=== PATIENT | male | born 1980 | race Caucasian/White ===

== ENCOUNTER 2018-08-31 14:49 | Emergency (ER) | payer SELFPAY ==
[~2018-08-31] VITALS: Ht 182.9 cm; Wt 95.3 kg
[2018-08-31] MEDS ORDERED: TETRACAINE 0.5% OPHTH SOLN 4 ML BTL (SINGLE DOSE ONLY) OU ONE (15:15)
[2018-08-31] MEDS ORDERED: FLUORESCEIN (FLUOR-I-STRIPS) 1 MG STRP OU ONE (15:15)
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
[2018-08-31] MEDS ORDERED: RX-TOBRAMYCIN 0.3% OPHTH (TOBREX) SOLN 5 ML BTL OP STA (15:40)
[2018-08-31] MEDS ORDERED: PRED5DRO24 OP (15:54)
[2018-08-31 16:00] VITALS: BP 165/95
== END 2018-08-31 16:00 | disposition home or self-care (01) ==
LOC: ER FS 14:51
DX: S05.01XA Injury of conjunctiva and corneal abrasion without foreign body, right eye, initial encounter (principal); F17.210 Nicotine dependence, cigarettes, uncomplicated; Z90.49 Acquired absence of other specified parts of digestive tract; X58.XXXA Exposure to other specified factors, initial encounter
CPT/HCPCS: 99283

== ENCOUNTER 2019-08-22 07:45 | Emergency (ER) | payer SELFPAY ==
[~2019-08-22] VITALS: Ht 182.8 cm; Wt 75.0 kg
[~2019-08-22 07:45] MED LIST: PRED5DRO24 OP
--- OUTSIDE RECORDS SUMMARY | 2019-08-22 07:52 | XMS REPORT | Continuity of Care Document ---
Author Organization Unknown Address Unknown Phone Unavailable Allergies Active Description Code Type Severity Reaction Onset Reported/Identified Relationship to Patient Clinical Status Yes No Known Drug Allergies [id number] Drug Allergy Unknown N/A 08/31/2018 Medications There is no data. Problems Date Dx Coded Attending Type Code Diagnosis Diagnosed By 08/31/2018 HENNA VILLAR MD Ot F17.210 NICOTINE DEPENDENCE, CIGARETTES, UNCOMPL 08/31/2018 HENNA VILLAR MD Ot H57. 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 49 ACQUIRED ABSENCE OF OTHER SPECIFIED PART 09/02/2018 HENNA VILLAR MD Ot F17.210 NICOTINE DEPENDENCE, CIGARETTES, UNCOMPL 09/02/2018 HENNA VILLAR MD Ot H57. 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 49 ACQUIRED ABSENCE OF OTHER SPECIFIED PART 07/18/2019 AVILA CALHOUN MD Ot E83. 42 HYPOMAGNESEMIA 07/18/2019 AVILA CALHOUN MD Ot E87. 1 HYPO-OSMOLALITY AND HYPONATREMIA 07/18/2019 AVILA CALHOUN MD Ot E87. 6 HYPOKALEMIA 07/18/2019 AVILA CALHOUN MD Ot F10.239 ALCOHOL DEPENDENCE WITH WITHDRAWAL, UNSP 07/18/2019 AVILA CALHOUN MD Ot F17.210 NICOTINE DEPENDENCE, CIGARETTES, UNCOMPL 07/18/2019 UNIQUE MD, AVILA M Ot G93. 41 METABOLIC ENCEPHALOPATHY 07/18/2019 AVILA CALHOUN MD M Ot K70. 10 ALCOHOLIC HEPATITIS WITHOUT ASCITES 07/18/2019 MOOK CALHOUN MDIN M Ot R00. 0 TACHYCARDIA, UNSPECIFIED 07/18/2019 MOOK CALHOUN MDIN M Ot R11. 2 NAUSEA WITH VOMITING, UNSPECIFIED 07/18/2019 AVILA CALHOUN MD M Ot R25. 1 TREMOR, UNSPECIFIED 07/19/2019 MOOK CALHOUN MDIN M Ot E83. 42 HYPOMAGNESEMIA 07/19/2019 MOOK CALHOUN MDIN M Ot E87. 1 HYPO-OSMOLALITY AND HYPONATREMIA 07/19/2019 AVILA CALHOUN MD M Ot E87. 6 HYPOKALEMIA 07/19/2019 AVILA CALHOUN MD M Ot F10.239 ALCOHOL DEPENDENCE WITH WITHDRAWAL, UNSP 07/19/2019 AVILA CALHOUN MD M Ot F17.210 NICOTINE DEPENDENCE, CIGARETTES, UNCOMPL 07/19/2019 AVILA CALHOUN MD M Ot G93. 41 METABOLIC ENCEPHALOPATHY 07/19/2019 AVILA CALHOUN MD M Ot K70. 10 ALCOHOLIC HEPATITIS WITHOUT ASCITES 07/19/2019 AVILA CALHOUN MD M Ot R00. 0 TACHYCARDIA, UNSPECIFIED 07/19/2019 AVILA CALHOUN MD M Ot R11. 2 NAUSEA WITH VOMITING, UNSPECIFIED 07/19/2019 AVILA CALHOUN MD M Ot R25. 1 TREMOR, UNSPECIFIED 07/20/2019 AVILA CALHOUN MD M Ot E83. 42 HYPOMAGNESEMIA 07/20/2019 AVILA CALHOUN MD M Ot E87. 1 HYPO-OSMOLALITY AND HYPONATREMIA 07/20/2019 UNIQUE SAWYER AVILA M Ot E87. 6 HYPOKALEMIA 07/20/2019 MOOK CALHOUN MDIN M Ot F10.239 ALCOHOL DEPENDENCE WITH WITHDRAWAL, UNSP 07/20/2019 AVILA CALHOUN MD M Ot F17.210 NICOTINE DEPENDENCE, CIGARETTES, UNCOMPL 07/20/2019 MOOK CALHOUN MDIN M Ot G93. 41 METABOLIC ENCEPHALOPATHY 07/20/2019 AVILA CALHOUN MD M Ot K70. 10 ALCOHOLIC HEPATITIS WITHOUT ASCITES 07/20/2019 AVILA CALHOUN MD M Ot R00. 0 TACHYCARDIA, UNSPECIFIED 07/20/2019 AVILA CALHOUN MD M Ot R11. 2 NAUSEA WITH VOMITING, UNSPECIFIED 07/20/2019 AVILA CALHOUN MD M Ot R25. 1 TREMOR, UNSPECIFIED 07/21/2019 AVILA CALHOUN MD M Ot E83. 42 HYPOMAGNESEMIA 07/21/2019 AVILA CALHOUN MD M Ot E87. 1 HYPO-OSMOLALITY AND HYPONATREMIA 07/21/2019 AVILA CALHOUN MD M Ot E87. 6 HYPOKALEMIA 07/21/2019 AVILA CALHOUN MD M Ot F10.239 ALCOHOL DEPENDENCE WITH WITHDRAWAL, UNSP 07/21/2019 AVILA CALHOUN MD M Ot F17.210 NICOTINE DEPENDENCE, CIGARETTES, UNCOMPL 07/21/2019 AVILA CALHOUN MD M Ot G93. 41 METABOLIC ENCEPHALOPATHY 07/21/2019 AVILA CALHOUN MD M Ot K70. 10 ALCOHOLIC HEPATITIS WITHOUT ASCITES 07/21/2019 AVILA CALHOUN MD M Ot R00. 0 TACHYCARDIA, UNSPECIFIED 07/21/2019 AVILA CALHOUN MD M Ot R11. 2 NAUSEA WITH VOMITING, UNSPECIFIED 07/21/2019 AVILA CALHOUN MD M Ot R25. 1 TREMOR, UNSPECIFIED 07/22/2019 AVILA CALHOUN MD M Ot E83. 42 HYPOMAGNESEMIA 07/22/2019 AVILA CALHOUN MD M Ot E87. 1 HYPO-OSMOLALITY AND HYPONATREMIA 07/22/2019 AVILA CALHOUN MD M Ot E87. 6 HYPOKALEMIA 07/22/2019 AVILA CALHOUN MD M Ot F10.239 ALCOHOL DEPENDENCE WITH WITHDRAWAL, UNSP 07/22/2019 AVILA CALHOUN MD M Ot F17.210 NICOTINE DEPENDENCE, CIGARETTES, UNCOMPL 07/22/2019 AVILA CALHOUN MD M Ot G93. 41 METABOLIC ENCEPHALOPATHY 07/22/2019 AVILA CALHOUN MD M Ot K70. 10 ALCOHOLIC HEPATITIS WITHOUT ASCITES 07/22/2019 AVILA CALHOUN MD M Ot R00. 0 TACHYCARDIA, UNSPECIFIED 07/22/2019 AVILA CALHOUN MD M Ot R11. 2 NAUSEA WITH VOMITING, UNSPECIFIED 07/22/2019 AVILA CALHOUN MD M Ot R25. 1 TREMOR, UNSPECIFIED 07/22/2019 AVILA CALHOUN MD M Ot E83. 42 HYPOMAGNESEMIA 07/22/2019 AVILA CALHOUN MD M Ot E87. 1 HYPO-OSMOLALITY AND HYPONATREMIA 07/22/2019 AVILA CALHOUN MD M Ot E87. 6 HYPOKALEMIA 07/22/2019 AVILA CALHOUN MD M Ot F10.239 ALCOHOL DEPENDENCE WITH WITHDRAWAL, UNSP 07/22/2019 AVILA CALHOUN MD M Ot F17.210 NICOTINE DEPENDENCE, CIGARETTES, UNCOMPL 07/22/2019 AVILA CALHOUN MD M Ot G93. 41 METABOLIC ENCEPHALOPATHY 07/22/2019 AVILA CALHOUN MD M Ot K70. 10 ALCOHOLIC HEPATITIS WITHOUT ASCITES 07/22/2019 AVILA CALHOUN MD M Ot R00. 0 TACHYCARDIA, UNSPECIFIED 07/22/2019 AVILA CALHOUN MD M Ot R11. 2 NAUSEA WITH VOMITING, UNSPECIFIED 07/22/2019 AVILA CALHOUN MD M Ot R25. 1 TREMOR, UNSPECIFIED 07/22/2019 AVILA CALHOUN MD M Ot E83. 42 HYPOMAGNESEMIA 07/22/2019 AVILA CALHOUN MD M Ot E87. 1 HYPO-OSMOLALITY AND HYPONATREMIA 07/22/2019 AVILA CALHOUN MD M Ot E87. 6 HYPOKALEMIA 07/22/2019 AVILA CALHOUN MD M Ot F10.239 ALCOHOL DEPENDENCE WITH WITHDRAWAL, UNSP 07/22/2019 AVILA CALHOUN MD M Ot F17.210 NICOTINE DEPENDENCE, CIGARETTES, UNCOMPL 07/22/2019 AVILA CALHOUN MD M Ot G93. 41 METABOLIC ENCEPHALOPATHY 07/22/2019 AVILA CALHOUN MD M Ot K70. 10 ALCOHOLIC HEPATITIS WITHOUT ASCITES 07/22/2019 AVILA CALHOUN MD M Ot R00. 0 TACHYCARDIA, UNSPECIFIED 07/22/2019 MOOK CALHOUN MDIN M Ot R11. 2 NAUSEA WITH VOMITING, UNSPECIFIED 07/22/2019 AVILA CALHOUN MD M Ot R25. 1 TREMOR, UNSPECIFIED 07/22/2019 AVILA CALHOUN MD M Ot E83. 42 HYPOMAGNESEMIA 07/22/2019 AVILA CALHOUN MD M Ot E87. 1 HYPO-OSMOLALITY AND HYPONATREMIA 07/22/2019 AVILA CALHOUN MD M Ot E87. 6 HYPOKALEMIA 07/22/2019 AVILA CALHOUN MD M Ot F10.239 ALCOHOL DEPENDENCE WITH WITHDRAWAL, UNSP 07/22/2019 AVILA CALHOUN MD Ot F17.210 NICOTINE DEPENDENCE, CIGARETTES, UNCOMPL 07/22/2019 AVILA CALHOUN MD Ot G93. 41 METABOLIC ENCEPHALOPATHY 07/22/2019 AVILA CALHOUN MD Ot K70. 10 ALCOHOLIC HEPATITIS WITHOUT ASCITES 07/22/2019 AVILA CALHOUN MD Ot R00. 0 TACHYCARDIA, UNSPECIFIED 07/22/2019 AVILA CALHOUN MD Ot R11. 2 NAUSEA WITH VOMITING, UNSPECIFIED 07/22/2019 AVILA CALHOUN MD Ot R25. 1 TREMOR, UNSPECIFIED 07/22/2019 AVILA CALHOUN MD Ot E83. 42 HYPOMAGNESEMIA 07/22/2019 AVILA CALHOUN MD Ot E87. 1 HYPO-OSMOLALITY AND HYPONATREMIA 07/22/2019 AVILA CALHOUN MD Ot E87. 6 HYPOKALEMIA 07/22/2019 AVILA CALHOUN MD Ot F10.239 ALCOHOL DEPENDENCE WITH WITHDRAWAL, UNSP 07/22/2019 AVILA CALHOUN MD Ot F10.251 ALCOHOL DEPEND W ALCOH-INDUCE PSYCHOTIC 07/22/2019 AVILA CALHOUN MD Ot F17.210 NICOTINE DEPENDENCE, CIGARETTES, UNCOMPL 07/22/2019 AVILA CALHOUN MD Ot G93. 41 METABOLIC ENCEPHALOPATHY 07/22/2019 AVILA CALHOUN MD Ot K70. 10 ALCOHOLIC HEPATITIS WITHOUT ASCITES 07/22/2019 AVILA CALHOUN MD Ot R00. 0 TACHYCARDIA, UNSPECIFIED 07/22/2019 AVILA CALHOUN MD Ot R11. 2 NAUSEA WITH VOMITING, UNSPECIFIED 07/22/2019 AVILA CALHOUN MD Ot R25. 1 TREMOR, UNSPECIFIED Procedures There is no data. Results Test Result Range Complete blood count (CBC) with automate d white blood cell (WBC) differential - 07/16/19 08:25 Blood leukocytes automated count (number/volume) 14.4 10*3/uL 4.3-11.0 Blood erythrocytes automated count (number/volume) 4.23 10*6/uL 4.35-5.85 Venous blood hemoglobin measurement (mass/volume) 14.8 g/dL 13.3-17.7 Blood hematocrit (volume fraction) 40 % 40-54 Automated erythrocyte mean corpuscular volume 94 [ foz_us] 80-99 Automated erythrocyte mean corpuscular h emoglobin (mass per erythrocyte) 35 pg 25-34 Automated erythrocyte mean corpuscular h emoglobin concentration measurement (mass/volume) 37 g/dL 32-36 Automated erythrocyte distribution width ratio 12. 2 % 10.0- 14.5 Automated blood platelet count (count/volume) 116 10*3/uL 130-400 Automated blood platelet mean volume measurement 10.9 [foz_us] 7.4-10.4 Automated blood neutrophils/100 leukocytes 80 % 42-75 Automated blood lymphocytes/100 leukocytes 4 % 12-44 Blood monocytes/100 leukocytes 15 % 0-12 Automated blood eosinophils/100 leukocytes 0 % 0-10 Automated blood basophils/100 leukocytes 0 % 0-10 Blood neutrophils automated count (number/volume) 11.6 10*3 1.8-7.8 Blood lymphocytes automated count (number/volume) 0.5 10*3 1.0-4.0 Blood monocytes automated count (number/volume) 2. 1 10*3 0.0-1.0 Automated eosinophil count 0.0 10*3/uL 0 .0-0.3 Automated blood basophil count (count/volume) 0.0 10*3/uL 0.0-0.1 Comprehensive metabolic panel - 07/16/19 08:25 Serum or plasma sodium measurement (moles/volume) 124 mmol/L 135-145 Serum or plasma potassium measurement (moles/volume) 2.9 mmol/L 3.6-5.0 Serum or plasma chloride measurement (moles/volume) 65 mmol/L 98-107 Carbon dioxide 33 mmol/L 21-32 Serum or plasma anion gap determination (moles/volume) 26 mmol/L 5-14 Serum or plasma urea nitrogen measurement (mass/volume ) 26 mg/dL 7-18 Serum or plasma creatinine measurement (mass/volume) 1.06 mg/dL 0.60-1.30 Serum or plasma urea nitrogen/creatinine mass ratio 25 NRG Serum or plasma creatinine measurement w ith calculation of estimated glomerular filtration rate > NRG Serum or plasma glucose measurement (mass/volume) 282 mg/dL 70-105 Serum or plasma calcium measurement (mass/volume) 9.6 mg/dL 8.5-10.1 Serum or plasma total bilirubin measurement (mass/volu me) 2.3 mg/dL 0.1-1.0 Serum or plasma alkaline phosphatase min surement (enzymatic activity/volume) 71 U/L 40-136 Serum or plasma aspartate aminotransfera se measurement (enzymatic activity/volume) 203 U/L 5-34 Serum or plasma alanine aminotransferase measurement (enzymatic activity/volume) 77 U/L 0-55 Serum or plasma protein measurement (mass/volume) 7.4 g/dL 6.4-8.2 Serum or plasma albumin measurement (mass/volume) 4.2 g/dL 3.2-4.5 CALCIUM CORRECTED 9.4 mg/dL 8.5-10.1 Serum or plasma ethanol measurement (mas s/volume) - 07/16/19 08:25 Serum or plasma ethanol measurement (mass/volume) 99 mg/dL <10 Complete urinalysis with reflex to cultu re - 07/16/19 09:09 Urine color determination DARK YELLOW N RG Urine clarity determination CLOUDY NR G Urine pH measurement by test strip 5.5 5-9 Specific gravity of urine by test strip >= 1.016-1.022 Urine protein assay by test strip, semi-quantitative 2+ NEGATIVE Urine glucose detection by automated test strip TR ANA NEGATIVE Erythrocytes detection in urine sediment by light micr oscopy 1+ NEGATIVE Urine ketones detection by automated test strip TR ANA NEGATIVE Urine nitrite detection by test strip POSITIVE NEGATIVE Urine total bilirubin detection by test strip 2+ NEGATIVE Urine urobilinogen measurement by automated test strip (mass/volume) 4.0 mg/dL < = 1.0 Urine leukocyte esterase detection by dipstick NEG ATIVE NEGATIVE Automated urine sediment erythrocyte cou nt by microscopy (number/high power field) [HPF] NRG Automated urine sediment leukocyte count by microscopy (number/high power field) [HPF] NRG Bacteria detection in urine sediment by light microsco py MODERATE NRG Squamous epithelial cells detection in u rine sediment by light microscopy NONE NRG Crystals detection in urine sediment by light microsco py NONE NRG Casts detection in urine sediment by light microscopy PRESENT NRG Mucus detection in urine sediment by light microscopy LARGE NRG Complete urinalysis with reflex to culture YES NRG Hyaline casts detection in urine sediment by light deven roscopy 10-25 NRG Urine drug screening test - 07/16/19 09: 09 Urine phencyclidine detection by screening method NEGATIVE NEGATIVE Urine benzodiazepines detection by screening method NEGATIVE NEGATIVE Urine cocaine detection NEGATIVE NEGATI VE Urine amphetamines detection by screening method N EGATIVE NEGATIVE Urine methamphetamine detection by screening method NEGATIVE NEGATIVE Urine cannabinoids detection by screening method P OSITIVE NEGATIVE Urine opiates detection by screening method NEGATI VE NEGATIVE Urine barbiturates detection NEGATIVE N EGATIVE Screening urine tricyclic antidepressants detection NEGATIVE NEGATIVE Urine methadone detection by screening method NEGA TIVE NEGATIVE Urine oxycodone detection NEGATIVE NEGA TIVE Urine propoxyphene detection NEGATIVE N EGATIVE Bacterial urine culture - 07/16/19 09:09 Bacterial urine culture NG NRG Methicillin resistant Staphylococcus aur eus (MRSA) screening culture - 07/16/19 13:29 Methicillin resistant Staphylococcus aureus (MRSA) scr eening culture NEG NRG Whole blood basic metabolic panel - 07/05 03/26 14:05 Serum or plasma sodium measurement (moles/volume) 130 mmol/L 135-145 Serum or plasma potassium measurement (moles/volume) 3.1 mmol/L 3.6-5.0 Serum or plasma chloride measurement (moles/volume) 78 mmol/L 98-107 Carbon dioxide 35 mmol/L 21-32 Serum or plasma anion gap determination (moles/volume) 17 mmol/L 5-14 Serum or plasma urea nitrogen measurement (mass/volume ) 23 mg/dL 7-18 Serum or plasma creatinine measurement (mass/volume) 0.85 mg/dL 0.60-1.30 Serum or plasma urea nitrogen/creatinine mass ratio 27 NRG Serum or plasma creatinine measurement w ith calculation of estimated glomerular filtration rate > NRG Serum or plasma glucose measurement (mass/volume) 106 mg/dL 70-105 Serum or plasma calcium measurement (mass/volume) 8.3 mg/dL 8.5-10.1 Magnesium - 07/16/19 14:05 Magnesium 0.8 mg/dL 1.6-2.4 Hemoglobin A1c measurement - 07/16/19 14 :05 Blood hemoglobin A1C measurement (mass/volume) 4.7 % 4.0-5.6 MEAN BLOOD GLUCOSE 88 % <=126 Capillary blood glucose measurement by g lucometer (mass/volume) - 07/16/19 15:25 Capillary blood glucose measurement by glucometer (mas s/volume) 154 mg/dL 70-110 Capillary blood glucose measurement by g lucometer (mass/volume) - 07/16/19 19:34 Capillary blood glucose measurement by glucometer (mas s/volume) 130 mg/dL 70-110 Whole blood basic metabolic panel - 07/05 03/26 19:39 Serum or plasma sodium measurement (moles/volume) 126 mmol/L 135-145 Serum or plasma potassium measurement (moles/volume) 3.2 mmol/L 3.6-5.0 Serum or plasma chloride measurement (moles/volume) 78 mmol/L 98-107 Carbon dioxide 34 mmol/L 21-32 Serum or plasma anion gap determination (moles/volume) 14 mmol/L 5-14 Serum or plasma urea nitrogen measurement (mass/volume ) 22 mg/dL 7-18 Serum or plasma creatinine measurement (mass/volume) 0.88 mg/dL 0.60-1.30 Serum or plasma urea nitrogen/creatinine mass ratio 25 NRG Serum or plasma creatinine measurement w ith calculation of estimated glomerular filtration rate > NRG Serum or plasma glucose measurement (mass/volume) 127 mg/dL 70-105 Serum or plasma calcium measurement (mass/volume) 8.1 mg/dL 8.5-10.1 Whole blood basic metabolic panel - 07/05 03/26 23:11 Serum or plasma sodium measurement (moles/volume) 127 mmol/L 135-145 Serum or plasma potassium measurement (moles/volume) 3.1 mmol/L 3.6-5.0 Serum or plasma chloride measurement (moles/volume) 80 mmol/L 98-107 Carbon dioxide 34 mmol/L 21-32 Serum or plasma anion gap determination (moles/volume) 13 mmol/L 5-14 Serum or plasma urea nitrogen measurement (mass/volume ) 19 mg/dL 7-18 Serum or plasma creatinine measurement (mass/volume) 0.80 mg/dL 0.60-1.30 Serum or plasma urea nitrogen/creatinine mass ratio 24 NRG Serum or plasma creatinine measurement w ith calculation of estimated glomerular filtration rate > NRG Serum or plasma glucose measurement (mass/volume) 109 mg/dL 70-105 Serum or plasma calcium measurement (mass/volume) 8.1 mg/dL 8.5-10.1 Magnesium - 07/16/19 23:11 Magnesium 2.9 mg/dL 1.6-2.4 Liver function panel (serum or plasma al k phos, alb, total and direct bili, total protein, ALT, AST) - 07/17/19 03:04 Serum or plasma total bilirubin measurement (mass/volu me) 2.7 mg/dL 0.1-1.0 Serum or plasma alkaline phosphatase min surement (enzymatic activity/volume) 49 U/L 40-136 Serum or plasma aspartate aminotransfera se measurement (enzymatic activity/volume) 137 U/L 5-34 Serum or plasma alanine aminotransferase measurement (enzymatic activity/volume) 52 U/L 0-55 Serum or plasma protein measurement (mass/volume) 6.4 g/dL 6.4-8.2 Serum or plasma albumin measurement (mass/volume) 3.3 g/dL 3.2-4.5 Bilirubin direct 1.6 mg/dL 0.0-0.3 Serum or plasma indirect bilirubin measurement (mass/v olume) 1.1 mg/dL NRG Whole blood basic metabolic panel - 07/05 04/26 03:04 Serum or plasma sodium measurement (moles/volume) 129 mmol/L 135-145 Serum or plasma potassium measurement (moles/volume) 3.4 mmol/L 3.6-5.0 Serum or plasma chloride measurement (moles/volume) 84 mmol/L 98-107 Carbon dioxide 35 mmol/L 21-32 Serum or plasma anion gap determination (moles/volume) 10 mmol/L 5-14 Serum or plasma urea nitrogen measurement (mass/volume ) 18 mg/dL 7-18 Serum or plasma creatinine measurement (mass/volume) 0.75 mg/dL 0.60-1.30 Serum or plasma urea nitrogen/creatinine mass ratio 24 NRG Serum or plasma creatinine measurement w ith calculation of estimated glomerular filtration rate > NRG Serum or plasma glucose measurement (mass/volume) 106 mg/dL 70-105 Serum or plasma calcium measurement (mass/volume) 8.1 mg/dL 8.5-10.1 Serum or plasma phosphate measurement (m ass/volume) - 07/17/19 03:04 Serum or plasma phosphate measurement (mass/volume) 2.8 mg/dL 2.3-4.7 Complete blood count (CBC) with automate d white blood cell (WBC) differential - 07/17/19 03:04 Blood leukocytes automated count (number/volume) 7.6 10*3/uL 4.3-11.0 Blood erythrocytes automated count (number/volume) 3.46 10*6/uL 4.35-5.85 Venous blood hemoglobin measurement (mass/volume) 11.9 g/dL 13.3-17.7 Blood hematocrit (volume fraction) 34 % 40-54 Automated erythrocyte mean corpuscular volume 97 [ foz_us] 80-99 Automated erythrocyte mean corpuscular h emoglobin (mass per erythrocyte) 34 pg 25-34 Automated erythrocyte mean corpuscular h emoglobin concentration measurement (mass/volume) 35 g/dL 32-36 Automated erythrocyte distribution width ratio 12. 4 % 10.0- 14.5 Automated blood platelet count (count/volume) 59 1 0*3/uL 130-400 Automated blood platelet mean volume measurement 10.8 [foz_us] 7.4-10.4 Automated blood neutrophils/100 leukocytes 65 % 42-75 Automated blood lymphocytes/100 leukocytes 22 % 12-44 Blood monocytes/100 leukocytes 13 % 0-12 Automated blood eosinophils/100 leukocytes 0 % 0-10 Automated blood basophils/100 leukocytes 0 % 0-10 Blood neutrophils automated count (number/volume) 4.9 10*3 1.8-7.8 Blood lymphocytes automated count (number/volume) 1.6 10*3 1.0-4.0 Blood monocytes automated count (number/volume) 1. 0 10*3 0.0-1.0 Automated eosinophil count 0.0 10*3/uL 0 .0-0.3 Automated blood basophil count (count/volume) 0.0 10*3/uL 0.0-0.1 Magnesium - 07/17/19 03:04 Magnesium 2.7 mg/dL 1.6-2.4 Capillary blood glucose measurement by g lucometer (mass/volume) - 07/17/19 11:24 Capillary blood glucose measurement by glucometer (mas s/volume) 120 mg/dL 70-110 Capillary blood glucose measurement by g lucometer (mass/volume) - 07/17/19 16:53 Capillary blood glucose measurement by glucometer (mas s/volume) 122 mg/dL 70-110 Arterial blood gas measurement - 0 18:01 Blood pCO2 40 mm[Hg] 35-45 Blood pO2 79 mm[Hg] 79-93 Arterial blood bicarbonate measurement (moles/volume) 30 mmol/L 23-27 Arterial blood base excess by calculation 6.0 mmol /L -2.5-2.5 Arterial blood oxygen saturation measurement 97 % 94-100 * Inhaled oxygen flow rate ROOM AIR NRG Arterial blood pH measurement with patient temperature correction 7.49 7.37-7.43 Arterial blood carbon dioxide, total measurement (mole s/volume) 30.9 mmol/L 21.0-31.0 Body site RT RAD NRG Assessment of wrist artery patency prior to arterial p uncture YES-POS NRG Setting of ventilation mode NO NR G Measurement of body temperature 36.4 NRG Complete blood count (CBC) with automate d white blood cell (WBC) differential - 07/18/19 03:15 Blood leukocytes automated count (number/volume) 7.5 10*3/uL 4.3-11.0 Blood erythrocytes automated count (number/volume) 3.58 10*6/uL 4.35-5.85 Venous blood hemoglobin measurement (mass/volume) 12.3 g/dL 13.3-17.7 Blood hematocrit (volume fraction) 35 % 40-54 Automated erythrocyte mean corpuscular volume 99 [ foz_us] 80-99 Automated erythrocyte mean corpuscular h emoglobin (mass per erythrocyte) 34 pg 25-34 Automated erythrocyte mean corpuscular h emoglobin concentration measurement (mass/volume) 35 g/dL 32-36 Automated erythrocyte distribution width ratio 12. 3 % 10.0- 14.5 Automated blood platelet count (count/volume) 65 1 0*3/uL 130-400 Automated blood platelet mean volume measurement 11.0 [foz_us] 7.4-10.4 Automated blood neutrophils/100 leukocytes 71 % 42-75 Automated blood lymphocytes/100 leukocytes 17 % 12-44 Blood monocytes/100 leukocytes 10 % 0-12 Automated blood eosinophils/100 leukocytes 1 % 0-10 Automated blood basophils/100 leukocytes 0 % 0-10 Blood neutrophils automated count (number/volume) 5.3 10*3 1.8-7.8 Blood lymphocytes automated count (number/volume) 1.3 10*3 1.0-4.0 Blood monocytes automated count (number/volume) 0. 8 10*3 0.0-1.0 Automated eosinophil count 0.1 10*3/uL 0 .0-0.3 Automated blood basophil count (count/volume) 0.0 10*3/uL 0.0-0.1 Whole blood basic metabolic panel - 07/05 05/24 03:15 Serum or plasma sodium measurement (moles/volume) 132 mmol/L 135-145 Serum or plasma potassium measurement (moles/volume) 3.6 mmol/L 3.6-5.0 Serum or plasma chloride measurement (moles/volume) 98 mmol/L 98-107 Carbon dioxide 25 mmol/L 21-32 Serum or plasma anion gap determination (moles/volume) 9 mmol/L 5-14 Serum or plasma urea nitrogen measurement (mass/volume ) 11 mg/dL 7-18 Serum or plasma creatinine measurement (mass/volume) 0.70 mg/dL 0.60-1.30 Serum or plasma urea nitrogen/creatinine mass ratio 16 NRG Serum or plasma creatinine measurement w ith calculation of estimated glomerular filtration rate > NRG Serum or plasma glucose measurement (mass/volume) 106 mg/dL 70-105 Serum or plasma calcium measurement (mass/volume) 8.2 mg/dL 8.5-10.1 Serum or plasma phosphate measurement (m ass/volume) - 07/18/19 03:15 Serum or plasma phosphate measurement (mass/volume) 1.9 mg/dL 2.3-4.7 Magnesium - 07/18/19 03:15 Magnesium 1.6 mg/dL 1.6-2.4 PHENOBARBITAL - 07/18/19 03:15 [id number] 2.6 % 15.0-40.0 Capillary blood glucose measurement by g lucometer (mass/volume) - 07/18/19 10:49 Capillary blood glucose measurement by glucometer (mas s/volume) 169 mg/dL 70-110 Capillary blood glucose measurement by g lucometer (mass/volume) - 07/18/19 15:48 Capillary blood glucose measurement by glucometer (mas s/volume) 277 mg/dL 70-110 Capillary blood glucose measurement by g lucometer (mass/volume) - 07/18/19 19:33 Capillary blood glucose measurement by glucometer (mas s/volume) 119 mg/dL 70-110 Whole blood basic metabolic panel - 07/05 06/24 03:18 Serum or plasma sodium measurement (moles/volume) 130 mmol/L 135-145 Serum or plasma potassium measurement (moles/volume) 3.9 mmol/L 3.6-5.0 Serum or plasma chloride measurement (moles/volume) 99 mmol/L 98-107 Carbon dioxide 22 mmol/L 21-32 Serum or plasma anion gap determination (moles/volume) 9 mmol/L 5-14 Serum or plasma urea nitrogen measurement (mass/volume ) 6 mg/dL 7-18 Serum or plasma creatinine measurement (mass/volume) 0.71 mg/dL 0.60-1.30 Serum or plasma urea nitrogen/creatinine mass ratio 8 NRG Serum or plasma creatinine measurement w ith calculation of estimated glomerular filtration rate > NRG Serum or plasma glucose measurement (mass/volume) 151 mg/dL 70-105 Serum or plasma calcium measurement (mass/volume) 7.8 mg/dL 8.5-10.1 Complete blood count (CBC) with automate d white blood cell (WBC) differential - 07/19/19 03:18 Blood leukocytes automated count (number/volume) 9.2 10*3/uL 4.3-11.0 Blood erythrocytes automated count (number/volume) 3.41 10*6/uL 4.35-5.85 Venous blood hemoglobin measurement (mass/volume) 11.7 g/dL 13.3-17.7 Blood hematocrit (volume fraction) 34 % 40-54 Automated erythrocyte mean corpuscular volume 101 [foz_us] 80-99 Automated erythrocyte mean corpuscular h emoglobin (mass per erythrocyte) 34 pg 25-34 Automated erythrocyte mean corpuscular h emoglobin concentration measurement (mass/volume) 34 g/dL 32-36 Automated erythrocyte distribution width ratio 12. 6 % 10.0- 14.5 Automated blood platelet count (count/volume) 86 1 0*3/uL 130-400 Automated blood platelet mean volume measurement 11.1 [foz_us] 7.4-10.4 Automated blood neutrophils/100 leukocytes 71 % 42-75 Automated blood lymphocytes/100 leukocytes 12 % 12-44 Blood monocytes/100 leukocytes 15 % 0-12 Automated blood eosinophils/100 leukocytes 1 % 0-10 Automated blood basophils/100 leukocytes 0 % 0-10 Blood neutrophils automated count (number/volume) 6.6 10*3 1.8-7.8 Blood lymphocytes automated count (number/volume) 1.2 10*3 1.0-4.0 Blood monocytes automated count (number/volume) 1. 4 10*3 0.0-1.0 Automated eosinophil count 0.1 10*3/uL 0 .0-0.3 Automated blood basophil count (count/volume) 0.0 10*3/uL 0.0-0.1 Serum or plasma phosphate measurement (m ass/volume) - 07/19/19 03:18 Serum or plasma phosphate measurement (mass/volume) 2.6 mg/dL 2.3-4.7 Magnesium - 07/19/19 03:18 Magnesium 1.4 mg/dL 1.6-2.4 Capillary blood glucose measurement by g lucometer (mass/volume) - 07/19/19 10:55 Capillary blood glucose measurement by glucometer (mas s/volume) 133 mg/dL 70-110 Capillary blood glucose measurement by g lucometer (mass/volume) - 07/19/19 15:43 Capillary blood glucose measurement by glucometer (mas s/volume) 120 mg/dL 70-110 Capillary blood glucose measurement by g lucometer (mass/volume) - 07/19/19 20:57 Capillary blood glucose measurement by glucometer (mas s/volume) 139 mg/dL 70-110 Complete blood count (CBC) with automate d white blood cell (WBC) differential - 07/20/19 03:04 Blood leukocytes automated count (number/volume) 11.9 10*3/uL 4.3-11.0 Blood erythrocytes automated count (number/volume) 3.39 10*6/uL 4.35-5.85 Venous blood hemoglobin measurement (mass/volume) 11.8 g/dL 13.3-17.7 Blood hematocrit (volume fraction) 34 % 40-54 Automated erythrocyte mean corpuscular volume 102 [foz_us] 80-99 Automated erythrocyte mean corpuscular h emoglobin (mass per erythrocyte) 35 pg 25-34 Automated erythrocyte mean corpuscular h emoglobin concentration measurement (mass/volume) 34 g/dL 32-36 Automated erythrocyte distribution width ratio 12. 5 % 10.0- 14.5 Automated blood platelet count (count/volume) 128 10*3/uL 130-400 Automated blood platelet mean volume measurement 10.6 [foz_us] 7.4-10.4 Automated blood neutrophils/100 leukocytes 65 % 42-75 Automated blood lymphocytes/100 leukocytes 10 % 12-44 Blood monocytes/100 leukocytes 24 % 0-12 Automated blood eosinophils/100 leukocytes 1 % 0-10 Automated blood basophils/100 leukocytes 0 % 0-10 Blood neutrophils automated count (number/volume) 7.7 10*3 1.8-7.8 Blood lymphocytes automated count (number/volume) 1.2 10*3 1.0-4.0 Blood monocytes automated count (number/volume) 2. 9 10*3 0.0-1.0 Automated eosinophil count 0.1 10*3/uL 0 .0-0.3 Automated blood basophil count (count/volume) 0.0 10*3/uL 0.0-0.1 Whole blood basic metabolic panel - 07/05 07/24 03:04 Serum or plasma sodium measurement (moles/volume) 130 mmol/L 135-145 Serum or plasma potassium measurement (moles/volume) 3.9 mmol/L 3.6-5.0 Serum or plasma chloride measurement (moles/volume) 101 mmol/L 98-107 Carbon dioxide 19 mmol/L 21-32 Serum or plasma anion gap determination (moles/volume) 10 mmol/L 5-14 Serum or plasma urea nitrogen measurement (mass/volume ) 4 mg/dL 7-18 Serum or plasma creatinine measurement (mass/volume) 0.60 mg/dL 0.60-1.30 Serum or plasma urea nitrogen/creatinine mass ratio 7 NRG Serum or plasma creatinine measurement w ith calculation of estimated glomerular filtration rate > NRG Serum or plasma glucose measurement (mass/volume) 125 mg/dL 70-105 Serum or plasma calcium measurement (mass/volume) 7.9 mg/dL 8.5-10.1 Serum or plasma phosphate measurement (m ass/volume) - 07/20/19 03:04 Serum or plasma phosphate measurement (mass/volume) 2.2 mg/dL 2.3-4.7 Magnesium - 07/20/19 03:04 Magnesium 1.3 mg/dL 1.6-2.4 Complete urinalysis with reflex to cultu re - 07/20/19 07:59 Urine color determination YELLOW NRG Urine clarity determination CLEAR NR G Urine pH measurement by test strip 6.5 5-9 Specific gravity of urine by test strip 1.010 1.016-1.022 Urine protein assay by test strip, semi-quantitative NEGATIVE NEGATIVE Urine glucose detection by automated test strip NE GATIVE NEGATIVE Erythrocytes detection in urine sediment by light micr oscopy NEGATIVE NEGATIVE Urine ketones detection by automated test strip NE GATIVE NEGATIVE Urine nitrite detection by test strip NEGATIVE NEGATIVE Urine total bilirubin detection by test strip NEGA TIVE NEGATIVE Urine urobilinogen measurement by automated test strip (mass/volume) 1.0 mg/dL < = 1.0 Urine leukocyte esterase detection by dipstick NEG ATIVE NEGATIVE Automated urine sediment erythrocyte cou nt by microscopy (number/high power field) [HPF] NRG Automated urine sediment leukocyte count by microscopy (number/high power field) NONE NRG Bacteria detection in urine sediment by light microsco py NEGATIVE NRG Crystals detection in urine sediment by light microsco py NONE NRG Casts detection in urine sediment by light microscopy NONE NRG Mucus detection in urine sediment by light microscopy NEGATIVE NRG Complete urinalysis with reflex to culture NO NRG Capillary blood glucose measurement by g lucometer (mass/volume) - 07/20/19 11:30 Capillary blood glucose measurement by glucometer (mas s/volume) 139 mg/dL 70-110 Capillary blood glucose measurement by g lucometer (mass/volume) - 07/20/19 16:29 Capillary blood glucose measurement by glucometer (mas s/volume) 230 mg/dL 70-110 Complete blood count (CBC) with automate d white blood cell (WBC) differential - 07/21/19 03:42 Blood leukocytes automated count (number/volume) 10.1 10*3/uL 4.3-11.0 Blood erythrocytes automated count (number/volume) 3.35 10*6/uL 4.35-5.85 Venous blood hemoglobin measurement (mass/volume) 11.8 g/dL 13.3-17.7 Blood hematocrit (volume fraction) 34 % 40-54 Automated erythrocyte mean corpuscular volume 102 [foz_us] 80-99 Automated erythrocyte mean corpuscular h emoglobin (mass per erythrocyte) 35 pg 25-34 Automated erythrocyte mean corpuscular h emoglobin concentration measurement (mass/volume) 35 g/dL 32-36 Automated erythrocyte distribution width ratio 12. 7 % 10.0- 14.5 Automated blood platelet count (count/volume) 159 10*3/uL 130-400 Automated blood platelet mean volume measurement 9.9 [foz_us] 7.4-10.4 Automated blood neutrophils/100 leukocytes 54 % 42-75 Automated blood lymphocytes/100 leukocytes 13 % 12-44 Blood monocytes/100 leukocytes 31 % 0-12 Automated blood eosinophils/100 leukocytes 1 % 0-10 Automated blood basophils/100 leukocytes 0 % 0-10 Blood neutrophils automated count (number/volume) 5.5 10*3 1.8-7.8 Blood lymphocytes automated count (number/volume) 1.3 10*3 1.0-4.0 Blood monocytes automated count (number/volume) 3. 2 10*3 0.0-1.0 Automated eosinophil count 0.1 10*3/uL 0 .0-0.3 Automated blood basophil count (count/volume) 0.0 10*3/uL 0.0-0.1 Whole blood basic metabolic panel - 07/05 08/24 03:42 Serum or plasma sodium measurement (moles/volume) 130 mmol/L 135-145 Serum or plasma potassium measurement (moles/volume) 4.2 mmol/L 3.6-5.0 Serum or plasma chloride measurement (moles/volume) 102 mmol/L 98-107 Carbon dioxide 19 mmol/L 21-32 Serum or plasma anion gap determination (moles/volume) 9 mmol/L 5-14 Serum or plasma urea nitrogen measurement (mass/volume ) 4 mg/dL 7-18 Serum or plasma creatinine measurement (mass/volume) 0.54 mg/dL 0.60-1.30 Serum or plasma urea nitrogen/creatinine mass ratio 7 NRG Serum or plasma creatinine measurement w ith calculation of estimated glomerular filtration rate > NRG Serum or plasma glucose measurement (mass/volume) 101 mg/dL 70-105 Serum or plasma calcium measurement (mass/volume) 8.1 mg/dL 8.5-10.1 Serum or plasma phosphate measurement (m ass/volume) - 07/21/19 03:42 Serum or plasma phosphate measurement (mass/volume) 2.3 mg/dL 2.3-4.7 Magnesium - 07/21/19 03:42 Magnesium 1.5 mg/dL 1.6-2.4 Manual absolute plasma cell count - 07/05 08/24 03:42 Blood monocytes/100 leukocytes 17 % NRG Manual blood segmented neutrophils/100 leukocytes 66 % NRG Blood band neutrophils/100 leukocytes 4 % NRG Manual blood lymphocytes/100 leukocytes 13 % NRG Blood polychromasia detection by light microscopy SLIGHT NRG Blood anisocytosis detection by light microscopy S LIGHT NRG Blood macrocytes detection by light microscopy SLI GHT NRG Capillary blood glucose measurement by g lucometer (mass/volume) - 07/21/19 11:21 Capillary blood glucose measurement by glucometer (mas s/volume) 133 mg/dL 70-110 Capillary blood glucose measurement by g lucometer (mass/volume) - 07/21/19 16:37 Capillary blood glucose measurement by glucometer (mas s/volume) 118 mg/dL 70-110 Capillary blood glucose measurement by g lucometer (mass/volume) - 07/21/19 20:10 Capillary blood glucose measurement by glucometer (mas s/volume) 138 mg/dL 70-110 Complete blood count (CBC) with automate d white blood cell (WBC) differential - 07/22/19 02:50 Blood leukocytes automated count (number/volume) 8.4 10*3/uL 4.3-11.0 Blood erythrocytes automated count (number/volume) 3.21 10*6/uL 4.35-5.85 Venous blood hemoglobin measurement (mass/volume) 11.2 g/dL 13.3-17.7 Blood hematocrit (volume fraction) 33 % 40-54 Automated erythrocyte mean corpuscular volume 103 [foz_us] 80-99 Automated erythrocyte mean corpuscular h emoglobin (mass per erythrocyte) 35 pg 25-34 Automated erythrocyte mean corpuscular h emoglobin concentration measurement (mass/volume) 34 g/dL 32-36 Automated erythrocyte distribution width ratio 12. 6 % 10.0- 14.5 Automated blood platelet count (count/volume) 245 10*3/uL 130-400 Automated blood platelet mean volume measurement 9.4 [foz_us] 7.4-10.4 Automated blood neutrophils/100 leukocytes 56 % 42-75 Automated blood lymphocytes/100 leukocytes 13 % 12-44 Blood monocytes/100 leukocytes 30 % 0-12 Automated blood eosinophils/100 leukocytes 1 % 0-10 Automated blood basophils/100 leukocytes 0 % 0-10 Blood neutrophils automated count (number/volume) 4.7 10*3 1.8-7.8 Blood lymphocytes automated count (number/volume) 1.1 10*3 1.0-4.0 Blood monocytes automated count (number/volume) 2. 6 10*3 0.0-1.0 Automated eosinophil count 0.0 10*3/uL 0 .0-0.3 Automated blood basophil count (count/volume) 0.0 10*3/uL 0.0-0.1 Whole blood basic metabolic panel - 07/05 09/23 02:50 Serum or plasma sodium measurement (moles/volume) 132 mmol/L 135-145 Serum or plasma potassium measurement (moles/volume) 4.0 mmol/L 3.6-5.0 Serum or plasma chloride measurement (moles/volume) 105 mmol/L 98-107 Carbon dioxide 18 mmol/L 21-32 Serum or plasma anion gap determination (moles/volume) 9 mmol/L 5-14 Serum or plasma urea nitrogen measurement (mass/volume ) 5 mg/dL 7-18 Serum or plasma creatinine measurement (mass/volume) 0.61 mg/dL 0.60-1.30 Serum or plasma urea nitrogen/creatinine mass ratio 8 NRG Serum or plasma creatinine measurement w ith calculation of estimated glomerular filtration rate > NRG Serum or plasma glucose measurement (mass/volume) 105 mg/dL 70-105 Serum or plasma calcium measurement (mass/volume) 8.1 mg/dL 8.5-10.1 Serum or plasma phosphate measurement (m ass/volume) - 07/22/19 02:50 Serum or plasma phosphate measurement (mass/volume) 2.0 mg/dL 2.3-4.7 Magnesium - 07/22/19 02:50 Magnesium 1.6 mg/dL 1.6-2.4 Capillary blood glucose measurement by g lucometer (mass/volume) - 07/22/19 11:30 Capillary blood glucose measurement by glucometer (mas s/volume) 115 mg/dL 70-110 Encounters ACCT No. Visit Date/Time Discharge Status Pt. Type Provider Facility Loc./Unit Complaint [id number] 07/16/2019 11:47:00 020 13:15:00 DIS Outpatient UNIQUE SAWYER, AVILA [facility] 4TH ALCOHOL WITHDRAWAL HY POKALEMIA [id number] 08/31/2018 14:51:00 019 16:00:00 DIS Emergency AUREA SAWYER, HENNA [facility] ER FS RT EYE INJ
[2019-08-22] MEDS ORDERED: ONDANSETRON 4 MG (ZOFRAN) ORAL DISSOLVE TAB PO STA (07:54)
[2019-08-22] MEDS ORDERED: TETANUS,DIPTH,PERTUSS P/F (BOOSTRIX) 0.5 ML VIAL IM ONE (08:00)
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
[2019-08-22] MEDS ORDERED: LORazepam INJ 2 MG/ML (ATIVAN) VIAL IM PRN (08:45)
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
[2019-08-22 08:54] LABS: BUN/CREATININE RATIO 31; CARBON DIOXIDE 36 MMOL/L (21-32); CREATININE SERUM 1.44 MG/DL (0.60-1.30); GFR ESTIMATED 55
[2019-08-22 08:55] LABS: ACETAMINOPHEN < 10 UG/ML (10-30); ALANINE AMINOTRANSFERASE 112 U/L (0-55); ALBUMIN 3.6 GM/DL (3.2-4.5); ALKALINE PHOSPHATASE 95 U/L (40-136); BILIRUBIN,TOTAL 2.8 MG/DL (0.1-1.0); CALCIUM 11.7 MG/DL (8.5-10.1); GLUCOSE 110 MG/DL (70-105); LIPASE 57 U/L (8-78); SALICYLATE < 0.3 MG/DL (5.0-20.0); TOTAL PROTEIN 7.5 GM/DL (6.4-8.2)
[2019-08-22 08:57] LABS: CHLORIDE 73 MMOL/L (98-107); POTASSIUM 2.6 MMOL/L (3.6-5.0); SODIUM 125 MMOL/L (135-145)
[2019-08-22 08:58] LABS: HEMOGLOBIN 10.8 G/DL (13.3-17.7)
[2019-08-22 08:59] LABS: MEAN PLATELET VOLUME 10.9 FL (7.4-10.4); RED CELL DISTRIBUTION WIDTH 12.1 % (10.0-14.5)
[2019-08-22] MEDS ORDERED: NS IV 1000 ML 1,000 ML ONE (08:59)
[2019-08-22] MEDS ORDERED: KCL 20 MEQ TAB (K-DUR) PO ONE ×2 (08:59→09:15)
[2019-08-22] MEDS ORDERED: NS IV 1000 ML 1,000 ML IV SCH (09:06)
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
[2019-08-22 09:21] LABS: AMPHETAMINE SCREEN, URINE NEGATIVE (NEGATIVE); BARBITURATE SCREEN URINE POSITIVE (NEGATIVE); BENZODIAZEPINES SCREEN URINE NEGATIVE (NEGATIVE); CANNABINOID SCREEN, URINE POSITIVE (NEGATIVE); COCAINE SCREEN URINE NEGATIVE (NEGATIVE); METHADONE STAT NEGATIVE (NEGATIVE); METHAMPHETAMINE SCREEN URINE S POSITIVE (NEGATIVE); OPIATE SCREEN URINE NEGATIVE (NEGATIVE); OXYCODONE STAT NEGATIVE (NEGATIVE); PROPOXYPHENE STAT NEGATIVE (NEGATIVE); TRICYCLIC ANTIDEPRESSANTS SCRE NEGATIVE (NEGATIVE)
[2019-08-22 10:09] VITALS: BP 167/96
--- NOTE | 2019-08-22 10:09 | NUR ---
Pt departed as AMA with instructions per Dr Kerr, pt is ambulatory with nurse walking along side asking him whom to call for his ride. Pt is watched for 5-10 min. Appeared he was attempting to walk to ER garage door as going to lower pants to void but re-directed by nurse. Pt walked around several times then directed to sit on bench awaiting a ride.
--- NOTE | 2019-08-22 10:20 | NUR ---
Pt is seen sitting on the grass appearing to have no injury. Pt picking at grass and was instructed RN could assist him to get up and sit on bench as more appropriate. Clinical coordinator Yuliya Car RN called [facility] to assist with pt remaining on hospital property. PD then arrives to speak with pt and a family member was called that arrived on scene.
--- NOTE | 2019-08-22 10:30 | NUR ---
It is noted that patient has left hospital property via conveyance of one of the options given per [facility]. RN's not a witness to departure time.
== END 2019-08-22 10:09 | disposition left against medical advice (07) ==
LOC: EDUNIT# 07:45 → ER FS 07:46
DX: S05.12XA Contusion of eyeball and orbital tissues, left eye, initial encounter (principal); S20.222A Contusion of left back wall of thorax, initial encounter; F10.20 Alcohol dependence, uncomplicated; N28.9 Disorder of kidney and ureter, unspecified; E87.6 Hypokalemia; E87.1 Hypo-osmolality and hyponatremia; D64.9 Anemia, unspecified; F17.210 Nicotine dependence, cigarettes, uncomplicated; Z23 Encounter for immunization; W19.XXXA Unspecified fall, initial encounter; Y92.009 Unspecified place in unspecified non-institutional (private) residence as the place of occurrence of the external cause; Y90.0 Blood alcohol level of less than 20 mg/100 ml
CPT/HCPCS: 36415; 70450; 71250; 72125; 80053; 80306; 83690; 85027; 99284; G0480 ×3; 80320; 80329; 90715

== ENCOUNTER 2019-09-17 20:44 | Emergency (ER) | payer SELFPAY ==
[~2019-09-17] VITALS: Ht 182.9 cm; Wt 79.1 kg
[2019-09-17] MEDS ORDERED: NS IV 1000 ML 1,000 ML IV STA (20:55)
--- NOTE | 2019-09-17 20:58 | ED Psychosocial ---
General Chief Complaint: Substance Abuse Stated Complaint: ALCOHOL DETOX Source: patient, RN/MD, EMS Exam Limitations: no limitations History of Present Illness Date Seen by Provider: Sep 17, 2019 Time Seen by Provider: 20:57 Initial Comments This patient is a 39-year-old male who presents to the [facility] for the complaint of alcoholism. Patient apparently drank 1 L of vodka last night. Family members called EMS because they were concerned the patient's blood pressure was low. However on arrival patient is awake and alert blood pressure 150 systolic. Patient denies any other drug abuse. Patient is requesting Ativan. Patient smells heavily of alcohol does not appear to be acutely anxious. Timing/Duration: yesterday Severity: mild Associated Symptoms: denies symptoms Allergies and Home Medications Allergies Coded Allergies: No Known Drug Allergies (Unverified , 08/31/18) Home Medications No Active Prescriptions or Reported Meds Patient Home Medication List Home Medication List Reviewed: Yes Review of Systems Constitutional: No no symptoms reported; see HPI; No chills, No diaphoresis, No dizziness, No fever, No malaise, No weakness, No weight gain, No weight loss, No other EENTM: No see HPI, No no symptoms reported, No ear discharge, No hearing loss, No ear pain, No blurred vision, No double vision, No eye pain, No tearing, No vision loss, No dental problems, No hoarseness, No mouth pain, No mouth swelling, No epistaxis, No nose congestion, No nose pain, No throat pain, No throat swelling, No other Respiratory: No no symptoms reported, No see HPI, No cough, No dyspnea on exertion, No hemoptysis, No orthopnea, No phlegm, No short of breath, No stridor, No wheezing, No other Cardiovascular: No no symptoms reported, No see HPI, No chest pain, No edema, No Hx of Intervention, No palpitations, No syncope, No vascular heart diseas, No other Gastrointestinal: No RUQ, No LUQ, No RLQ, No LLQ, No no symptoms reported, No see HPI, No abdominal pain, No constipation, No diarrhea, No dysphagia, No hematemesis, No heartburn, No jaundice, No loss of appetite, No melena, No nausea, No vomiting, No other Genitourinary: No no symptoms reported, No see HPI, No decreased output, No discharge, No dysuria, No frequency, No hematuria, No hesitancy, No incontinence, No nocturia, No pain, No other Musculoskeletal: No no symptoms reported, No see HPI, No back pain, No gout, No joint pain, No joint swelling, No muscle pain, No muscle stiffness, No muscle cramps, No muscle twitching, No muscle weakness, No neck pain, No other Skin: No no symptoms reported, No see HPI, No change in color, No change in hair/nails, No dryness, No hx of skin cancer, No lesions, No lumps, No pruritus, No rash, No other Psychiatric/Neurological: Denies No Symptoms Reported, Denies See HPI, Denies Anxiety, Denies Depressed, Denies Emotional Problems, Denies Headache, Denies Numbness, Denies Paresthesia, Denies Pre-Existing Deficit, Denies Seizure, Denies Tingling, Denies Tremors, Denies Weakness, Denies Other All Other Systems Reviewed Negative Unless Noted: Yes Past Vuplumt-Jmotqw-Xbjgmd Hx Patient Social History Alcohol Beverage of Choice: Vodka Drug of Choice: Marijuana Type Used: Cigarettes 2nd Hand Smoke Exposure: Yes Recent Foreign Travel: No Contact w/Someone Who Travel: No Recent Hopitalizations: No Seasonal Allergies Seasonal Allergies: No Past Medical History Surgeries: Yes Appendectomy, Eye Surgery Respiratory: No Cardiac: No Neurological: No Genitourinary: No Gastrointestinal: No Musculoskeletal: No Endocrine: No 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 oz. 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, no motor/sensory deficits, alert, normal mood/affect, oriented x 3 Skin: normal color, warm/dry Lymphatic: no adenopathy Progress/Results/Core Measures Results/Orders Lab Results Laboratory Tests Test 09/17/19 20:57 09/17/19 22:30 Range/Units White Blood Count 12.6 H 4.3-11.0 10^3/uL Red Blood Count 3.34 L 4.35-5.85 10^6/uL Hemoglobin 10.9 L 13.3-17.7 G/DL Hematocrit 32 L 40-54 % Mean Corpuscular Volume 94 80-99 FL Mean Corpuscular Hemoglobin 33 25-34 PG Mean Corpuscular Hemoglobin Concent 35 32-36 G/DL Red Cell Distribution Width 13.2 10.0-14.5 % Platelet Count 185 130-400 10^3/uL Mean Platelet Volume 9.9 7.4-10.4 FL Neutrophils (%) (Auto) 87 H 42-75 % Lymphocytes (%) (Auto) 7 L 12-44 % Monocytes (%) (Auto) 5 0-12 % Eosinophils (%) (Auto) 0 0-10 % Basophils (%) (Auto) 0 0-10 % Neutrophils # (Auto) 10.9 H 1.8-7.8 X 10^3 Lymphocytes # (Auto) 0.9 L 1.0-4.0 X 10^3 Monocytes # (Auto) 0.7 0.0-1.0 X 10^3 Eosinophils # (Auto) 0.0 0.0-0.3 10^3/uL Basophils # (Auto) 0.0 0.0-0.1 10^3/uL Neutrophils % (Manual) 88 % Lymphocytes % (Manual) 5 % Monocytes % (Manual) 5 % Eosinophils % (Manual) 0 % Basophils % (Manual) 0 % Band Neutrophils 2 % Sodium Level 131 L 135-145 MMOL/L Potassium Level 2.6 L 3.6-5.0 MMOL/L Chloride Level 70 L 98-107 MMOL/L Carbon Dioxide Level 15 L 21-32 MMOL/L Anion Gap 46 H 5-14 MMOL/L Blood Urea Nitrogen 27 H 7-18 MG/DL Creatinine 1.53 H 0.60-1.30 MG/DL Estimat Glomerular Filtration Rate 51 BUN/Creatinine Ratio 18 Glucose Level 201 H 70-105 MG/DL Calcium Level 7.4 L 8.5-10.1 MG/DL Corrected Calcium 8.3 L 8.5-10.1 MG/DL Total Bilirubin 1.3 H 0.1-1.0 MG/DL Aspartate Amino Transf (AST/SGOT) 215 H 5-34 U/L Alanine Aminotransferase (ALT/SGPT) 49 0-55 U/L Alkaline Phosphatase 103 40-136 U/L Total Protein 6.2 L 6.4-8.2 GM/DL Albumin 2.9 L 3.2-4.5 GM/DL Lipase 89 H 8-78 U/L Serum Alcohol 294 H <10 MG/DL Urine Color YELLOW Urine Clarity CLEAR Urine pH 5.5 5-9 Urine Specific [place] 1.025 H 1.016-1.022 Urine Protein 1+ H NEGATIVE Urine Glucose (UA) NEGATIVE NEGATIVE Urine Ketones NEGATIVE NEGATIVE Urine Nitrite NEGATIVE NEGATIVE Urine Bilirubin NEGATIVE NEGATIVE Urine Urobilinogen 1.0 < = 1.0 MG/DL Urine Leukocyte Esterase NEGATIVE NEGATIVE Urine RBC (Auto) 2+ H NEGATIVE Urine RBC NONE /HPF Urine WBC 0-2 /HPF Urine Squamous Epithelial Cells NONE /HPF Urine Crystals NONE /LPF Urine Bacteria TRACE /HPF Urine Casts PRESENT /LPF Urine Hyaline Casts 2-5 H /LPF Urine Mucus SMALL H /LPF Urine Culture Indicated NO Urine Opiates Screen NEGATIVE NEGATIVE Urine Oxycodone Screen NEGATIVE NEGATIVE Urine Methadone Screen NEGATIVE NEGATIVE Urine Propoxyphene Screen NEGATIVE NEGATIVE Urine Barbiturates Screen NEGATIVE NEGATIVE Ur Tricyclic Antidepressants Screen NEGATIVE NEGATIVE Urine Phencyclidine Screen NEGATIVE NEGATIVE Urine Amphetamines Screen NEGATIVE NEGATIVE Urine Methamphetamines Screen NEGATIVE NEGATIVE Urine Benzodiazepines Screen NEGATIVE NEGATIVE Urine Cocaine Screen NEGATIVE NEGATIVE Urine Cannabinoids Screen NEGATIVE NEGATIVE My Orders Orders - RAJNI AVILA MD Alcohol (09/17/19 20:55) Cbc With Automated Diff (09/17/19 20:55) Comprehensive Metabolic Panel (09/17/19 20:55) Drug Screen Stat (Urine) (09/17/19 20:55) Urinalysis (09/17/19 20:55) Ondansetron Injection (Zofran Injectio (09/17/19 21:00) Ns Iv 1000 Ml (Sodium Chloride 0.9%) (09/17/19 20:55) Lipase (09/17/19 20:55) Manual Differential (09/17/19 20:57) Medications Given in ED Current Medications Medications Dose Ordered Sig/Cyndi Route Start Time Stop Time Status Last Admin Dose Admin Ondansetron HCl 4 mg ONCE ONCE IVP 09/17/19 21:00 09/17/19 21:01 DC 09/17/19 21:01 4 MG Vital Signs/I&O 09/17/19 20:48 Temp 35.9 Pulse 119 Resp 18 B/P (MAP) 93/47 (62) O2 Delivery Room Air Progress Progress Note : Time: 23:06 Progress Note Negative evaluation in the emergency department other than alcohol intoxication. Encourage by mouth fluids. Try to avoid excesses and alcohol. Follow-up with her primary care physician. Discussed with your family friends about possible alcohol rehabilitation. Departure Impression Primary Impression: Acute alcoholic intoxication Disposition: HOME, SELF-CARE Condition: Stable Departure-Patient Inst. Referrals: NO,LOCAL PHYSICIAN (PCP/Family) Primary Care Physician Patient Instructions: Alcohol Abuse and Alcoholism (DC) Add. Discharge Instructions: Encourage by mouth fluids. Try to avoid excesses and alcohol. Follow-up with her primary care physician. Discussed with your family friends about possible alcohol rehabilitation. All discharge instructions reviewed with patient and/or family. Voiced understanding. Scripts No Active Prescriptions or Reported Meds RAJNI AVILA MD Sep 17, 2019 20:58
[2019-09-17] MEDS ORDERED: ONDANSETRON 4 MG/2 ML (SDV) Z0FRAN IVP ONE ×2 (21:00→23:15)
[2019-09-17 21:16] LABS: HEMATOCRIT 32 % (40-54); HEMOGLOBIN 10.9 G/DL (13.3-17.7); MEAN CORPUSCULAR HEMOGLOBIN 33 PG (25-34); MEAN CORPUSCULAR HGB CONC 35 G/DL (32-36); MEAN CORPUSCULAR VOLUME 94 FL (80-99); PLATELET COUNT 185 10^3/uL (130-400); RED CELL DISTRIBUTION WIDTH 13.2 % (10.0-14.5); WHITE BLOOD COUNT 12.6 10^3/uL (4.3-11.0)
[2019-09-17 21:17] LABS: BASOPHILS % (AUTO) 0 % (0-10); EOSINOPHILS % (AUTO) 0 % (0-10); LYMPHOCYTES # (AUTO) 0.9 X 10^3 (1.0-4.0); LYMPHOCYTES % (AUTO) 7 % (12-44); MEAN PLATELET VOLUME 9.9 FL (7.4-10.4); MONOCYTES # (AUTO) 0.7 X 10^3 (0.0-1.0); MONOCYTES % (AUTO) 5 % (0-12); NEUTROPHILS # (AUTO) 10.9 X 10^3 (1.8-7.8); NEUTROPHILS % (AUTO) 87 % (42-75)
[2019-09-17 21:26] LABS: POTASSIUM 2.6 MMOL/L (3.6-5.0)
[2019-09-17 21:27] LABS: BILIRUBIN,TOTAL 1.3 MG/DL (0.1-1.0); CALCIUM 7.4 MG/DL (8.5-10.1); CREATININE SERUM 1.53 MG/DL (0.60-1.30); TOTAL PROTEIN 6.2 GM/DL (6.4-8.2)
[2019-09-17 21:29] LABS: ALBUMIN 2.9 GM/DL (3.2-4.5)
[2019-09-17 21:40] LABS: BAND NEUTROPHILS 2 %; BASOPHILS % (MANUAL) 0 %; EOSINOPHILS % (MANUAL) 0 %; LYMPHOCYTES % (MANUAL) 5 %; MONOCYTES % (MANUAL) 5 %; NEUTROPHILS % (MANUAL) 88 %
--- OUTSIDE RECORDS SUMMARY | 2019-09-17 21:51 | XMS REPORT | Continuity of Care Document ---
Author Organization Unknown Address Unknown Phone Unavailable Allergies Active Description Code Type Severity Reaction Onset Reported/Identified Relationship to Patient Clinical Status Yes No Known Drug Allergies [id number] Drug Allergy Unknown N/A 08/31/2018 Medications There [...] M Ot G93. 41 METABOLIC ENCEPHALOPATHY 07/18/2019 AVIAL CALHOUN MD M Ot K70. 10 ALCOHOLIC [...] CALHOUN MD Ot R25. 1 TREMOR, UNSPECIFIED 08/27/2019 PATRICIA CHO MD Ot D64. 9 ANEMIA, UNSPECIFIED 08/27/2019 PATRICIA CHO MD Ot E87. 1 HYPO-OSMOLALITY AND HYPONATREMIA 08/27/2019 PATRICIA CHO MD Ot E87. 6 HYPOKALEMIA 08/27/2019 PATRICIA CHO MD Ot F10. 20 ALCOHOL DEPENDENCE, UNCOMPLICATED 08/27/2019 PATRICIA CHO MD Ot F17.210 NICOTINE DEPENDENCE, CIGARETTES, UNCOMPL 08/27/2019 PATRICIA CHO MD Ot N28. 9 DISORDER OF KIDNEY AND URETER, UNSPECIFI 08/27/2019 PATRICIA CHO MD, Ot S05.12XA CONTUSION OF EYEBALL AND ORBITAL TISSUES 08/27/2019 PATRICIA CHO MD, Ot S20.222A CONTUSION OF LEFT BACK WALL OF THORAX, I 08/27/2019 PATRICIA CHO MD, Ot W19.XXXA UNSPECIFIED FALL, INITIAL ENCOUNTER 08/27/2019 PATRICIA CHO MD, Ot Y90. 0 BLOOD ALCOHOL LEVEL OF LESS THAN 20 MG/1 08/27/2019 PATRICIA CHO MD, Ot Y92.[address] IN [facility] NON-INSTITUT (PRIVATE 08/27/2019 PATRICIA CHO MD, Ot Z23 ENCOUNTER FOR IMMUNIZATION Procedures There is no data. Results Test [...] indirect bilirubin measurement (mass/v olume) 1.1 mg/dL NR Whole blood basic metabolic panel - 07/05 [...] 1.6 mg/dL 1.6-2.4 PHENOBARBITAL - 07/18/19 03:15 [id number] 2.6 % 15.0-40.0 Capillary blood glucose measurement [...] by glucometer (mas s/volume) 115 mg/dL 70-110 Comprehensive metabolic panel - 08/22/19 08:15 Serum or plasma sodium measurement (moles/volume) 125 mmol/L 135-145 Serum or plasma potassium measurement (moles/volume) 2.6 mmol/L 3.6-5.0 Serum or plasma chloride measurement (moles/volume) 73 mmol/L 98-107 Carbon dioxide 36 mmol/L 21-32 Serum or plasma anion gap determination (moles/volume) 16 mmol/L 5-14 Serum or plasma urea nitrogen measurement (mass/volume ) 44 mg/dL 7-18 Serum or plasma creatinine measurement (mass/volume) 1.44 mg/dL 0.60-1.30 Serum or plasma urea nitrogen/creatinine mass ratio 31 NRG Serum or plasma creatinine measurement w ith calculation of estimated glomerular filtration rate 55 NRG Serum or plasma glucose measurement (mass/volume) 110 mg/dL 70-105 Serum or plasma calcium measurement (mass/volume) 11.7 mg/dL 8.5-10.1 Serum or plasma total bilirubin measurement (mass/volu me) 2.8 mg/dL 0.1-1.0 Serum or plasma alkaline phosphatase min surement (enzymatic activity/volume) 95 U/L 40-136 Serum or plasma aspartate aminotransfera se measurement (enzymatic activity/volume) 374 U/L 5-34 Serum or plasma alanine aminotransferase measurement (enzymatic activity/volume) 112 U/L 0-55 Serum or plasma protein measurement (mass/volume) 7.5 g/dL 6.4-8.2 Serum or plasma albumin measurement (mass/volume) 3.6 g/dL 3.2-4.5 CALCIUM CORRECTED 12.0 mg/dL 8.5-10.1 Lipase - 08/22/19 08:15 Lipase 57 U/L 8-78 Serum or plasma salicylates measurement (mass/volume) - 08/22/19 08:15 Serum or plasma salicylates measurement (mass/volume) < mg/dL 5.0-20.0 Serum or plasma acetaminophen measuremen t (mass/volume) - 08/22/19 08:15 Serum or plasma acetaminophen measurement (mass/volume ) < ug/mL 10-30 Serum or plasma ethanol measurement (mas s/volume) - 08/22/19 08:15 Serum or plasma ethanol measurement (mass/volume) < mg/dL <10 Automated blood complete blood count (he mogram) panel - 08/22/19 08:15 Blood leukocytes automated count (number/volume) 18.0 10*3/uL 4.3-11.0 Blood erythrocytes automated count (number/volume) 3.12 10*6/uL 4.35-5.85 Venous blood hemoglobin measurement (mass/volume) 10.8 g/dL 13.3-17.7 Blood hematocrit (volume fraction) 29 % 40-54 Automated erythrocyte mean corpuscular volume 91 [ foz_us] 80-99 Automated erythrocyte mean corpuscular h emoglobin (mass per erythrocyte) 35 pg 25-34 Automated erythrocyte mean corpuscular h emoglobin concentration measurement (mass/volume) 38 g/dL 32-36 Automated erythrocyte distribution width ratio 12. 1 % 10.0- 14.5 Automated blood platelet count (count/volume) 175 10*3/uL 130-400 Automated blood platelet mean volume measurement 10.9 [foz_us] 7.4-10.4 Urine drug screening test - 08/22/19 08: 45 Urine phencyclidine detection by screening method NEGATIVE NEGATIVE Urine benzodiazepines detection by screening method NEGATIVE NEGATIVE Urine cocaine detection NEGATIVE NEGATI VE Urine amphetamines detection by screening method N EGATIVE NEGATIVE Urine methamphetamine detection by screening method POSITIVE NEGATIVE Urine cannabinoids detection by screening method P OSITIVE NEGATIVE Urine opiates detection by screening method NEGATI VE NEGATIVE Urine barbiturates detection POSITIVE N EGATIVE Screening urine tricyclic antidepressants detection NEGATIVE NEGATIVE Urine methadone detection by screening method NEGA TIVE NEGATIVE Urine oxycodone detection NEGATIVE NEGA TIVE Urine propoxyphene detection NEGATIVE N EGATIVE Complete blood count (CBC) with automate d white blood cell (WBC) differential - 09/17/19 20:57 Blood leukocytes automated count (number/volume) 12.6 10*3/uL 4.3-11.0 Blood erythrocytes automated count (number/volume) 3.34 10*6/uL 4.35-5.85 Venous blood hemoglobin measurement (mass/volume) 10.9 g/dL 13.3-17.7 Blood hematocrit (volume fraction) 32 % 40-54 Automated erythrocyte mean corpuscular volume 94 [ foz_us] 80-99 Automated erythrocyte mean corpuscular h emoglobin (mass per erythrocyte) 33 pg 25-34 Automated erythrocyte mean corpuscular h emoglobin concentration measurement (mass/volume) 35 g/dL 32-36 Automated erythrocyte distribution width ratio 13. 2 % 10.0- 14.5 Automated blood platelet count (count/volume) 185 10*3/uL 130-400 Automated blood platelet mean volume measurement 9.9 [foz_us] 7.4-10.4 Automated blood neutrophils/100 leukocytes 87 % 42-75 Automated blood lymphocytes/100 leukocytes 7 % 12-44 Blood monocytes/100 leukocytes 5 % 0-12 Automated blood eosinophils/100 leukocytes 0 % 0-10 Automated blood basophils/100 leukocytes 0 % 0-10 Blood neutrophils automated count (number/volume) 10.9 10*3 1.8-7.8 Blood lymphocytes automated count (number/volume) 0.9 10*3 1.0-4.0 Blood monocytes automated count (number/volume) 0. 7 10*3 0.0-1.0 Automated eosinophil count 0.0 10*3/uL 0 .0-0.3 Automated blood basophil count (count/volume) 0.0 10*3/uL 0.0-0.1 Comprehensive metabolic panel - 09/17/19 20:57 Serum or plasma sodium measurement (moles/volume) 131 mmol/L 135-145 Serum or plasma potassium measurement (moles/volume) 2.6 mmol/L 3.6-5.0 Serum or plasma chloride measurement (moles/volume) 70 mmol/L 98-107 Carbon dioxide 15 mmol/L 21-32 Serum or plasma anion gap determination (moles/volume) 46 mmol/L 5-14 Serum or plasma urea nitrogen measurement (mass/volume ) 27 mg/dL 7-18 Serum or plasma creatinine measurement (mass/volume) 1.53 mg/dL 0.60-1.30 Serum or plasma urea nitrogen/creatinine mass ratio 18 NRG Serum or plasma creatinine measurement w ith calculation of estimated glomerular filtration rate 51 NRG Serum or plasma glucose measurement (mass/volume) 201 mg/dL 70-105 Serum or plasma calcium measurement (mass/volume) 7.4 mg/dL 8.5-10.1 Serum or plasma total bilirubin measurement (mass/volu me) 1.3 mg/dL 0.1-1.0 Serum or plasma alkaline phosphatase min surement (enzymatic activity/volume) 103 U/L 40-136 Serum or plasma aspartate aminotransfera se measurement (enzymatic activity/volume) 215 U/L 5-34 Serum or plasma alanine aminotransferase measurement (enzymatic activity/volume) 49 U/L 0-55 Serum or plasma protein measurement (mass/volume) 6.2 g/dL 6.4-8.2 Serum or plasma albumin measurement (mass/volume) 2.9 g/dL 3.2-4.5 CALCIUM CORRECTED 8.3 mg/dL 8.5-10.1 Lipase - 09/17/19 20:57 Lipase 89 U/L 8-78 Serum or plasma ethanol measurement (mas s/volume) - 09/17/19 20:57 Serum or plasma ethanol measurement (mass/volume) 294 mg/dL <10 Manual absolute plasma cell count - 09/04 05/24 20:57 Blood monocytes/100 leukocytes 5 % NRG Manual blood segmented neutrophils/100 leukocytes 88 % NRG Blood band neutrophils/100 leukocytes 2 % NRG Manual blood lymphocytes/100 leukocytes 5 % NRG Manual eosinophils/100 leukocytes in nose 0 % NRG Manual blood basophils/100 leukocytes 0 % NRG Encounters ACCT No. Visit Date/Time Discharge Status Pt. Type Provider Facility Loc./Unit Complaint [id number] 08/22/2019 07:46:00 020 10:09:00 DIS Outpatient MARQUIS SAWYER, PATRICIA Alicea [facility] FS INTOXICATION [id number] 07/16/2019 11:47:00 020 13:15:00 DIS Inpatient UNIQUE SAWYER, AVILA Tariq [facility] 4TH ALCOHOL WITHDRAWAL HY POKALEMIA [id number] 08/31/2018 14:51:00 019 16:00:00 DIS Emergency HENNA VILLAR MD [facility] FS RT EYE INJ [id number] 09/17/2019 20:45:[address] Emergency AUSTIN SAWYER, RAJNI Alicea [facility] FS ALCOHOL DETOX
[2019-09-17 22:53] LABS: BILIRUBIN,URINE NEGATIVE (NEGATIVE); CLARITY,URINE CLEAR; COLOR,URINE YELLOW; GLUCOSE, URINE (UA) NEGATIVE (NEGATIVE); KETONES,URINE NEGATIVE (NEGATIVE); NITRITE,URINE NEGATIVE (NEGATIVE); PH,URINE 5.5 (5-9); PROTEIN,URINE 1+ (NEGATIVE)
[2019-09-17 22:54] LABS: BACTERIA,URINE TRACE /HPF; LEUKOCYTE ESTERASE ,URINE NEGATIVE (NEGATIVE); WBC,URINE 0-2 /HPF
[2019-09-17 23:02] LABS: AMPHETAMINE SCREEN, URINE NEGATIVE (NEGATIVE); BARBITURATE SCREEN URINE NEGATIVE (NEGATIVE); BENZODIAZEPINES SCREEN URINE NEGATIVE (NEGATIVE); CANNABINOID SCREEN, URINE NEGATIVE (NEGATIVE); COCAINE SCREEN URINE NEGATIVE (NEGATIVE); METHADONE STAT NEGATIVE (NEGATIVE); METHAMPHETAMINE SCREEN URINE S NEGATIVE (NEGATIVE); OPIATE SCREEN URINE NEGATIVE (NEGATIVE); OXYCODONE STAT NEGATIVE (NEGATIVE); PROPOXYPHENE STAT NEGATIVE (NEGATIVE); TRICYCLIC ANTIDEPRESSANTS SCRE NEGATIVE (NEGATIVE)
[2019-09-17] MEDS ORDERED: POTASSIUM CL 10MEQ/50ML IVPB 200 ML IV ONE (23:26)
[2019-09-17 23:29] LABS: OCCULT BLOOD,GASTRIC FLUID POSITIVE (NEGATIVE)
[2019-09-17] MEDS ORDERED: OCTREOTIDE INJECTION 50 MCG in NS (IVPB) 50 ML IV ONE (23:30)
[2019-09-17] MEDS ORDERED: PANTOPRAZOLE 40 MG (PROTONIX) VIAL IV ONE (23:30)
[2019-09-17] MEDS ORDERED: THIAMINE 100 MG/ML 2 ML (VITAMIN B-1) VIAL IV ONE (23:30)
[2019-09-17] MEDS ORDERED: POTASSIUM CL 10MEQ/50ML IVPB 50 ML IV SCH (23:30)
[2019-09-17] MEDS ORDERED: NS IV 1000 ML 1,000 ML IV SCH (23:30)
--- NOTE | 2019-09-17 23:40 | NUR ---
[facility] CALLED FOR TRANSPORT.
[2019-09-17 23:46] LABS: HEMOGLOBIN 11.1 G/DL (13.3-17.7)
[2019-09-17 23:47] LABS: MEAN PLATELET VOLUME 9.8 FL (7.4-10.4); RED CELL DISTRIBUTION WIDTH 13.2 % (10.0-14.5)
--- NOTE | 2019-09-17 23:57 | NUR ---
PLACED 40 MEQ OF KCL IN THE 1000 CC BAG OF NORMAL SALINE. 40 MEQ OF KCL TOTAL. WOULD NOT LET THIS RN SCAN THE OTHER BAGS.
[2019-09-18 00:29] VITALS: BP 111/69
== END 2019-09-18 00:29 | disposition home or self-care (01) ==
LOC: EDUNIT# 20:44 → ER FS 20:45
DX: F10.229 Alcohol dependence with intoxication, unspecified (principal); Z77.22 Contact with and (suspected) exposure to environmental tobacco smoke (acute) (chronic); Y90.8 Blood alcohol level of 240 mg/100 ml or more
CPT/HCPCS: 36415; 80053; 80306; 81000; 82271; 83690; 85007; 85027; 99285; G0480; 80320

== ENCOUNTER 2019-12-19 19:35 | Inpatient (IN) | payer SELFPAY ==
[~2019-12-19] VITALS: Ht 182.9 cm; Wt 82.1 kg
[2019-12-19] MEDS ORDERED: FAMOTIDINE 20MG/2ML IV (PEPCID) IV STA (19:45)
[2019-12-19] MEDS ORDERED: LACTATED RINGERS 1,000 ML IV ONE (19:45)
--- NOTE | 2019-12-19 19:45 | ED GI ---
General Stated Complaint: NAUSEA,VOMITING History of Present Illness Date Seen by Provider: Dec 19, 2019 Time Seen by Provider: 19:45 Initial Comments 39-year-old male presents with nausea vomiting. Patient reports he's had a large amount of vomiting all day today. Agent reports that he was a known alcoholic, relapsed about a month ago. He is been drinking every day until around 2:00 this morning. Patient reports has a history of cirrhosis and thinks he is probably having starvation because he has not been eating only drinking alcohol. Patient denies any abdominal pain. He does have some muscle cramping. Patient reports his last drink was around 2 to 2:30 this morning. he denies any fevers, chills, cough Allergies and Home Medications Allergies Coded Allergies: No Known Drug Allergies (Unverified , 08/31/18) Home Medications No Active Prescriptions or Reported Meds Patient Home Medication List Home Medication List Reviewed: Yes Review of Systems Review of Systems Constitutional: No chills, No fever Respiratory: Denies Cough Cardiovascular: Denies Chest Pain, Denies Irregular Heart Rate, Denies Lightheadedness Gastrointestinal: Denies Abdominal Pain, Denies Diarrhea; Nausea, Vomiting Musculoskeletal: see HPI Skin: no symptoms reported Psychiatric/Neurological: See HPI Endocrine: See HPI Past [id number] Hx Past Med/Social Hx: Reviewed Nursing Past Med/Soc Hx Patient Social History Alcohol Beverage of Choice: Vodka Drug of Choice: Marijuana Type Used: Cigarettes 2nd Hand Smoke Exposure: Yes Recent Hopitalizations: No Seasonal Allergies Seasonal Allergies: No Past Medical History Surgeries: Yes Appendectomy, Eye Surgery Respiratory: No Cardiac: No Neurological: No Genitourinary: No Gastrointestinal: No Musculoskeletal: No Endocrine: No HEENT: Yes (Enucleation of left eye) Eye Injury Loss of Vision: Left Cancer: No Psychosocial: No Integumentary: No Blood Disorders: No Physical Exam Vital Signs Vital Signs - First Documented 12/19/19 20:02 Temp 36.2 Pulse 136 Resp 24 B/P (MAP) 100/59 (73) Pulse Ox 97 O2 Delivery Room Air Capillary Refill : Height/Weight/BMI Height: 6'0" Weight: 210lbs. oz. [id number]; 23.00 BMI Method:Stated General Appearance: moderate distress Neck: full range of motion, supple Respiratory: lungs clear, normal breath sounds Cardiovascular: tachycardia Gastrointestinal: soft, distended, guarding, tenderness (mild diffuse) Extremities: normal range of motion, non-tender, other (agent does easily get cramping and spasms) Neurologic/Psychiatric: alert Skin: warm/dry Progress/Results/Core Measures Results/Orders Lab Results Laboratory Tests Test 12/19/19 19:00 12/19/19 19:50 12/19/19 20:25 Range/Units Magnesium Level 1.4 L 1.6-2.4 MG/DL White Blood Count 14.9 H 4.3-11.0 10^3/uL Red Blood Count 4.93 4.35-5.85 10^6/uL Hemoglobin 10.3 L 13.3-17.7 G/DL Hematocrit 34 L 40-54 % Mean Corpuscular Volume 68 L 80-99 FL Mean Corpuscular Hemoglobin 21 L 25-34 PG Mean Corpuscular Hemoglobin Concent 31 L 32-36 G/DL Red Cell Distribution Width 17.5 H 10.0-14.5 % Platelet Count 133 130-400 10^3/uL Mean Platelet Volume 10.2 7.4-10.4 FL Immature Granulocyte % (Auto) 1 % Neutrophils (%) (Auto) 75 42-75 % Lymphocytes (%) (Auto) 7 L 12-44 % Monocytes (%) (Auto) 18 H 0-12 % Eosinophils (%) (Auto) 0 0-10 % Basophils (%) (Auto) 0 0-10 % Neutrophils # (Auto) 11.1 H 1.8-7.8 X 10^3 Lymphocytes # (Auto) 1.0 1.0-4.0 X 10^3 Monocytes # (Auto) 2.6 H 0.0-1.0 X 10^3 Eosinophils # (Auto) 0.0 0.0-0.3 10^3/uL Basophils # (Auto) 0.0 0.0-0.1 10^3/uL Immature Granulocyte # (Auto) 0.1 0.0-0.1 10^3/uL Neutrophils % (Manual) 81 % Lymphocytes % (Manual) 7 % Monocytes % (Manual) 10 % Eosinophils % (Manual) 0 % Basophils % (Manual) 0 % Metamyelocytes % 1 % Band Neutrophils 1 % Sodium Level 137 135-145 MMOL/L Potassium Level 2.4 *L 3.6-5.0 MMOL/L Chloride Level 64 L 98-107 MMOL/L Carbon Dioxide Level 28 21-32 MMOL/L Anion Gap 45 H 5-14 MMOL/L Blood Urea Nitrogen 28 H 7-18 MG/DL Creatinine 2.80 H 0.60-1.30 MG/DL Estimat Glomerular Filtration Rate 26 BUN/Creatinine Ratio 10 Glucose Level 157 H 70-105 MG/DL Calcium Level 9.3 8.5-10.1 MG/DL Corrected Calcium 8.5-10.1 MG/DL Total Bilirubin 0.9 0.1-1.0 MG/DL Aspartate Amino Transf (AST/SGOT) 106 H 5-34 U/L Alanine Aminotransferase (ALT/SGPT) 43 0-55 U/L Alkaline Phosphatase 85 40-136 U/L Total Protein 9.4 H 6.4-8.2 GM/DL Albumin 4.7 H 3.2-4.5 GM/DL Lipase 40 8-78 U/L Serum Alcohol 79 H <10 MG/DL Urine Color YELLOW Urine Clarity SLT CLOUDY Urine pH 5.5 5-9 Urine Specific [place] >=1.030 1.016-1.022 Urine Protein 3+ H NEGATIVE Urine Glucose (UA) NEGATIVE NEGATIVE Urine Ketones TRACE H NEGATIVE Urine Nitrite NEGATIVE NEGATIVE Urine Bilirubin 1+ H NEGATIVE Urine Urobilinogen 0.2 < = 1.0 MG/DL Urine Leukocyte Esterase NEGATIVE NEGATIVE Urine RBC (Auto) TRACE H NEGATIVE Urine RBC RARE /HPF Urine WBC 5-10 H /HPF Urine Squamous Epithelial Cells RARE /HPF Urine Crystals NONE /LPF Urine Bacteria MODERATE H /HPF Urine Casts PRESENT /LPF Urine Hyaline Casts 10-25 H /LPF Urine Mucus SMALL H /LPF Urine Culture Indicated YES My Orders Orders - PETER,VJ L DO Abdomen (Kub) 1 View (12/19/19 19:45) Chest 1 View Ap/Pa Only (12/19/19 19:45) Alcohol (12/19/19 19:45) Cbc With Automated Diff (12/19/19 19:45) Comprehensive Metabolic Panel (12/19/19 19:45) Lipase (12/19/19 19:45) Ua Culture If Indicated (12/19/19 19:45) Ed Iv/Invasive Line Start (12/19/19 19:45) Lactated Ringers (Lr 1000 Ml Iv Solution (12/19/19 19:45) Famotidine Injection (Pepcid Injection) (12/19/19 19:45) Manual Differential (12/19/19 19:50) Promethazine Injection (Phenergan Injec (12/19/19 20:15) Potassium Cl 10meq/50ml Ivpb (Kcl 10 Meq (12/19/19 20:30) Magnesium (12/19/19 20:51) Magnesium 1 Gm/100 Ml Ivpb (Magnesium Coy (12/19/19 21:00) Urine Culture (12/19/19 20:25) Medications Given in ED Current Medications Medications Dose Ordered Sig/Cyndi Route Start Time Stop Time Status Last Admin Dose Admin Lactated Ringer's 1,000 ml @ 0 mls/hr Q0M ONCE IV 12/19/19 19:45 12/19/19 19:49 DC 12/19/19 19:56 999 MLS/HR Magnesium Sulfate/ Dextrose 100 ml @ 100 mls/hr ONCE ONCE IV 12/19/19 21:00 12/19/19 21:59 DC 12/19/19 21:03 100 MLS/HR Promethazine HCl 12.5 mg ONCE ONCE IVP 12/19/19 20:15 12/19/19 20:16 DC 12/19/19 20:10 12.5 MG Vital Signs/I&O 12/19/19 12/19/19 12/19/19 20:02 21:35 22:26 Temp 36.2 Pulse 136 132 Resp 24 18 B/P (MAP) 100/59 (73) 140/92 Pulse Ox 97 98 O2 Delivery Room Air Room Air Room Air 12/20/19 00:00 Intake Total 1610 ml Balance 1610 ml Progress Progress Note : Time: 20:59 Progress Note Patient with acute kidney injury likely from dehydration from the vomiting. Patient with low potassium likely from vomiting and alcohol abuse. Patient has a largely elevated anion gap likely from alcoholic starvation along with his ethanol. Patient was given Phenergan and IV fluids and starting to feel better. He will be transferred to [facility] for further treatment and observation. Patient was transferred in stable condition Departure Communication (Admissions) Time/Spoke to Admitting Phy: 20:[address] Canchola. We'll admit patient to [facility] in stable con dition Impression Primary Impression: Acute kidney injury Additional Impressions: Alcoholism /alcohol abuse Hypokalemia Nausea & vomiting Qualified Codes: R11.2 - Nausea with vomiting, unspecified Dehydration Disposition: 30 STILL A PATIENT Condition: Stable Admissions Decision to Admit Reason: Admit from ER (General) Decision to Admit/Date: Dec 19, 2019 Time/Decision to Admit Time: 20:40 Departure-Patient Inst. Referrals: NO,LOCAL PHYSICIAN (PCP/Family) Primary Care Physician Scripts No Active Prescriptions or Reported Meds VJ PETER DO Dec 19, 2019 19:45
[2019-12-19 20:00] LABS: BASOPHILS % (AUTO) 0 % (0-10); EOSINOPHILS % (AUTO) 0 % (0-10); HEMATOCRIT 34 % (40-54); HEMOGLOBIN 10.3 G/DL (13.3-17.7); LYMPHOCYTES % (AUTO) 7 % (12-44); MEAN CORPUSCULAR HEMOGLOBIN 21 PG (25-34); MEAN CORPUSCULAR HGB CONC 31 G/DL (32-36); MEAN CORPUSCULAR VOLUME 68 FL (80-99); MEAN PLATELET VOLUME 10.2 FL (7.4-10.4); MONOCYTES % (AUTO) 18 % (0-12); NEUTROPHILS % (AUTO) 75 % (42-75); PLATELET COUNT 133 10^3/uL (130-400); WHITE BLOOD COUNT 14.9 10^3/uL (4.3-11.0)
[2019-12-19 20:01] LABS: MONOCYTES # (AUTO) 2.6 X 10^3 (0.0-1.0); NEUTROPHILS # (AUTO) 11.1 X 10^3 (1.8-7.8)
[2019-12-19 20:15] LABS: SODIUM 137 MMOL/L (135-145)
[2019-12-19] MEDS ORDERED: PROMETHAZINE INJ 25 MG/ML (PHENERGAN) AMP IVP ONE (20:15)
[2019-12-19 20:18] LABS: ALKALINE PHOSPHATASE 85 U/L (40-136); BILIRUBIN,TOTAL 0.9 MG/DL (0.1-1.0); BUN/CREATININE RATIO 10; CALCIUM 9.3 MG/DL (8.5-10.1); CARBON DIOXIDE 28 MMOL/L (21-32); CHLORIDE 64 MMOL/L (98-107); GFR ESTIMATED 26; GLUCOSE 157 MG/DL (70-105); POTASSIUM 2.4 MMOL/L (3.6-5.0)
[2019-12-19 20:19] LABS: ALANINE AMINOTRANSFERASE 43 U/L (0-55); ALBUMIN 4.7 GM/DL (3.2-4.5); LIPASE 40 U/L (8-78); TOTAL PROTEIN 9.4 GM/DL (6.4-8.2)
[2019-12-19] MEDS: POTASSIUM CL 10MEQ/50ML IVPB 50 ML IV SCH ×2 (20:26→21:23)
--- NOTE | 2019-12-19 20:27 | Diagnostic Imaging Report ---
INDICATION: Nausea and vomiting. COMPARISON: 07/20/2019. EXAMINATION: Single view of the chest was obtained. FINDINGS: There are some subtle patchy infiltrates in the lung bases and mid left lung. The heart is normal. There is no pneumothorax or effusion. Osseous structures are stable. IMPRESSION: Patchy pulmonary infiltrates. Follow-up recommended. Dictated by: Dictated on workstation # [id number]
--- NOTE | 2019-12-19 20:27 | Diagnostic Imaging Report ---
INDICATION: Abdominal pain. COMPARISON: None. EXAMINATION: Two views of the abdomen were obtained. FINDINGS: Nondistended bowel gas pattern. There is no constipation. Osseous structures are normal. IMPRESSION: Negative KUB. Dictated by: Dictated on workstation # [id number]
[2019-12-19] MEDS ORDERED: MAGNESIUM 1 GM/100 ML IVPB 100 ML IV ONE (21:00)
[2019-12-19 21:06] LABS: BILIRUBIN,URINE 1+ (NEGATIVE); CLARITY,URINE SLT CLOUDY; COLOR,URINE YELLOW; GLUCOSE, URINE (UA) NEGATIVE (NEGATIVE); KETONES,URINE TRACE (NEGATIVE); LEUKOCYTE ESTERASE ,URINE NEGATIVE (NEGATIVE); NITRITE,URINE NEGATIVE (NEGATIVE); PH,URINE 5.5 (5-9); PROTEIN,URINE 3+ (NEGATIVE)
[2019-12-19 21:07] LABS: BACTERIA,URINE MODERATE /HPF; RBC,URINE RARE /HPF; SQUAMOUS EPITHELIAL CELL,UR RARE /HPF
[2019-12-19 21:22] LABS: BAND NEUTROPHILS 1 %; BASOPHILS % (MANUAL) 0 %; EOSINOPHILS % (MANUAL) 0 %; LYMPHOCYTES % (MANUAL) 7 %; METAMYELOCYTES % 1 %; MONOCYTES % (MANUAL) 10 %; NEUTROPHILS % (MANUAL) 81 %
--- NOTE | 2019-12-19 21:35 | NUR ---
ems here report and care given
--- NOTE | 2019-12-19 22:26 | NUR ---
DEMETRIS ALEJO admitted to room 418-1, with an admitting diagnosis of DEHYDRATION, HYPOKALEMIA, ALCOHOLISM, N/V, KARI on 12/19/19 from [facility] via [facility], accompanied by EMS.DEMETRIS ALEJO introduced to surroundings, call light, bed controls, phone, TV, temperature control, lights, meal times, smoking policy, visitor policy, side rail policy, bathrooms and showers. Patient Rights given to patient in the handbook. DEMETRIS ALEJO verbalizes understanding that [facility] is not responsible for the loss or damage to any personal effects or valuables that are kept in the patients possession during their hospitalization.
[2019-12-19 22:36] VITALS: BP 141/92
[2019-12-19] MEDS ORDERED: ONDANSETRON 4 MG/2 ML (SDV) Z0FRAN IVP PRN (23:00)
[2019-12-19] MEDS ORDERED: PROMETHAZINE INJ 25 MG/ML (PHENERGAN) AMP IVP PRN (23:00)
[2019-12-19] MEDS: NS IV 1000 ML 1,000 ML IV SCH (23:29)
[2019-12-19] MEDS: POTASSIUM CL 10 MEQ/50 ML IVPB (PRE-MIX) IV SCH (23:29)
--- NOTE | 2019-12-19 23:33 | NUR ---
DR. ROWLAND NOTIFIED OF SYMPTOMS PT IS HAVING FROM ALCOHOL WITHDRAWAL. NEW ORDERS RECEIVED FOR [facility] PROTOCOL.
[2019-12-19] MEDS ORDERED: 1/2 NS IV SOLUTION 1,000 ML IV PRN (23:35)
[2019-12-19] MEDS ORDERED: ANTACID SUSP 30 ML UDC (MYLANTA) PO PRN (23:45)
[2019-12-19] MEDS ORDERED: ONDANSETRON 4 MG/2 ML (SDV) Z0FRAN IV PRN (23:45)
[2019-12-19] MEDS ORDERED: D5 1/2 NS 1000 ML IV SOLUTION 1,000 ML IV PRN (23:45)
[2019-12-19] MEDS ORDERED: SENNA W/DOCUSATE (SENOKOT S) TABLET PO PRN (23:45)
[2019-12-19] MEDS ORDERED: LORazepam INJ 2 MG/ML (ATIVAN) VIAL IM/IV PRN (23:45)
[2019-12-20] VITALS (7 sets, daily range): BP systolic 112–178; BP diastolic 67–92
[2019-12-20] MEDS: LORazepam 1 MG (ATIVAN) TAB PO PRN ×11 (00:03→23:22)
[2019-12-20 00:33] LABS: POTASSIUM 2.7 MMOL/L (3.6-5.0)
[2019-12-20 00:34] LABS: CALCIUM 8.3 MG/DL (8.5-10.1)
[2019-12-20 00:38] LABS: CREATININE SERUM 2.85 MG/DL (0.60-1.30)
[2019-12-20] MEDS: POTASSIUM CL 10 MEQ/50 ML IVPB (PRE-MIX) IV SCH (00:57)
[2019-12-20] MEDS: NS IV 1000 ML 1,000 ML IV SCH ×5 (05:40→15:11)
--- NOTE | 2019-12-20 06:02 | NUR ---
DR. ROWLAND NOTIFIED OF PT BEING SEVERE SEPSIS RISK, HR BEING IN THE 120'S, DVT SCORE OF 2,TELESITTER MONITOR UNAVAILABLE, AND POTASSIUM BEING STILL 2.7. NEW ORDERS RECEIVED TO GIVE 2500ML FLUID BOLUS IV, GIVE 4 BAGS OF IV POTASSIUM TOTALING 40 MEQ, ORDER FOR TELEMETRY: NOTIFY PHYSICIAN IN HR ABOVE 130, AND OKAY TO D/C TELESITTER.
[2019-12-20 06:12] LABS: BASOPHILS % (AUTO) 0 % (0-10); EOSINOPHILS % (AUTO) 0 % (0-10); HEMOGLOBIN 8.2 g/dL (13.3-17.7)
[2019-12-20 06:13] LABS: HEMATOCRIT 26 % (40-54); LYMPHOCYTES % (AUTO) 19 % (12-44); MEAN CORPUSCULAR HEMOGLOBIN 21 pg (25-34); MEAN CORPUSCULAR HGB CONC 31 g/dL (32-36); MEAN CORPUSCULAR VOLUME 67 fL (80-99); MONOCYTES # (AUTO) 1.4 10^3/uL (0.0-1.0); MONOCYTES % (AUTO) 14 % (0-12); NEUTROPHILS # (AUTO) 6.9 10^3/uL (1.8-7.8); NEUTROPHILS % (AUTO) 66 % (42-75); PLATELET COUNT 64 10^3/uL (130-400); WHITE BLOOD COUNT 10.4 10^3/uL (4.3-11.0)
[2019-12-20] MEDS ORDERED: NS IV 500 ML 500 ML IV SCH (06:15)
[2019-12-20 06:18] LABS: ALBUMIN 3.8 GM/DL (3.2-4.5); BILIRUBIN,TOTAL 1.3 MG/DL (0.1-1.0); CALCIUM 7.8 MG/DL (8.5-10.1); CREATININE SERUM 2.04 MG/DL (0.60-1.30); POTASSIUM 2.7 MMOL/L (3.6-5.0); TOTAL PROTEIN 7.8 GM/DL (6.4-8.2)
[2019-12-20] MEDS: POTASSIUM CL 10MEQ/50ML IVPB 50 ML IV SCH ×4 (06:32→11:02)
--- NOTE | 2019-12-20 08:30 | NUR ---
SPOKE WITH THE PT AND HE DENIES TAKING ANY PRESCRIPTION OR OTC MEDICATION
--- NOTE | 2019-12-20 08:45 | NUR ---
ATIVAN 1MG PO PER CIWA.
--- NOTE | 2019-12-20 10:30 | NUR ---
ATIVAN 1MG PO PER CIWA.
--- NOTE | 2019-12-20 11:45 | NUR ---
CM/SS: Visited with pt as to his past alcohol treatment - and follow up Plan: Undetermined at this time. Pt is from home and will likely return there when stable- Pt does not appear to be open to in or out patient drug and alcohol treatment at this time Summary: Pt reports he had quit drinking for a few months, then he relapsed. Pt is asked about where he went to treatment and how long he was there. Pt reports he has went to previously and he was diagnosed with Cirrhosis of the liver, after that time he stop drinking. Pt reports he never went to treatment he just quit drinking. Pt reports had some issues and drank the other day. He currently does not have a job and lives at the [facility] with his mother and sister in [place]. Pt is encouraged to keep his arm still so that his IV does not keep alarming. This worker will follow up.
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
--- NOTE | 2019-12-20 12:20 | NUR ---
PT WITH INCREASED ANXIETY AND NOW "SEEING BUGS". ELEVATED B/P. DR. ROWLAND NOTIFIED.
--- NOTE | 2019-12-20 12:20 | NUR ---
ATIVAN 1MG PO PER CIWA.
--- NOTE | 2019-12-20 12:25 | NUR ---
ADDITIONAL ATIVAN 1MG PO PER DR. ROWLAND.
[2019-12-20] MEDS ORDERED: LORazepam 0.5 MG (ATIVAN) TABLET PO STA (12:26)
[2019-12-20 13:57] LABS: CALCIUM 7.1 MG/DL (8.5-10.1); CREATININE SERUM 1.34 MG/DL (0.60-1.30); POTASSIUM 2.7 MMOL/L (3.6-5.0)
--- NOTE | 2019-12-20 14:03 | NUR ---
BMP RESULTS TO DR. ROWLAND.
--- NOTE | 2019-12-20 14:07 | NUR ---
"RD ASSESSMENT PMHx: ETOH abuse; cirrhosis PT INTERACTION: Pt was awake and pleasant during nutrition assessment. Note pt is a poor historian and has hx of ETOH abuse, per chart review. Pt states current appetite is good. Note PO intake 50% x1meal, per chart review. Pt states following a low-Na diet at home, and has no issues with chewing/swallowing food. Pt states recent episodes of nausea and vomiting for the past 1-2d. Pt states no recent issues with constipation or diarrhea, and that his last BM was 12/18. Note pt currently on bowel regimen of senna PRN, per chart review. Pt states recent wt loss, but is unsure of amount/timeframe. Note recent 7# wt gain x3mon, per chart review. ABNORMAL NUTRITION-RELATED LAB VALUES LOW: Na 130; K 2.7; Cl 71; Ca 7.8 HIGH: BUN 30; cr 2.04; glu 113; bili 1.3; AST 82 Est. kcal needs: 2050 kcal | 25 kcal/kg Est. Pro needs: 66 g Pro | 0.8 g Pro/kg PES STATEMENT: Inadequate oral intake (NI-2.1) related to loss of appetite | nausea | vomiting as evidenced by pt interview | chart review | PO intake 50% x1meal INTERVENTION: Continue with current diet order of Clear Liquid diet. Discontinue current supplementation order of Ensure Enlive (vary) with meals TID, as supplement is not clear consistency. Would recommend checking thiamine levels and repleting if necessary. Will continue to follow and reassess as pt needs, intake, and status change. Mervin Burch, MS RD LD"
[2019-12-20] MEDS ORDERED: POTASSIUM CL 10MEQ/50ML IVPB 50 ML IV SCH (14:30)
[2019-12-20] MEDS ORDERED: KCL 20 MEQ TAB (K-DUR) PO NR ×2 (15:56→18:00)
--- NOTE | 2019-12-20 15:57 | NUR ---
CONTACTED DR ROWLAND FOR RN ABOUT ABILITY TO SWITCH TO ORAL POTASSIUM THERAPY. RECEIVED ORDER TO OK TO CHANGE TO ORAL IF THE PATIENT IS NOT VOMITING. SEE NEW ORDERS (ALSO INFORMED RN) WILL GIVE KCL 40MEQ NOW, AND THEN 20MEQ WITH DINNER (1800)
[2019-12-20] MEDS ORDERED: KCL 10 MEQ TAB (MICRO K) PO ONE ×2 (16:00→18:00)
[2019-12-20] MEDS ORDERED: KCL 10 MEQ TAB (MICRO K) PO NR (16:20)
[2019-12-20 21:20] LABS: CHLORIDE 88 MMOL/L (98-107); SODIUM 132 MMOL/L (135-145)
[2019-12-20 21:21] LABS: CALCIUM 7.6 MG/DL (8.5-10.1)
[2019-12-20 21:22] LABS: GLUCOSE 91 MG/DL (70-105)
[2019-12-20 21:23] LABS: CARBON DIOXIDE 34 MMOL/L (21-32)
[2019-12-20 21:26] LABS: CREATININE SERUM 0.89 MG/DL (0.60-1.30); GFR ESTIMATED > 60
[2019-12-20 21:27] LABS: BUN/CREATININE RATIO 20
[2019-12-20] MEDS ORDERED: KCL 20 MEQ TAB (K-DUR) PO ONE (22:45)
--- NOTE | 2019-12-20 23:50 | NUR ---
[address] Canchola with patients lab results. Discussed the amount of IV and oral potassium given today and patients current IV maintenance fluid rate. Orders received for 40 mEq oral potassium one time. 2315 Patient heart rate 225. EKG performed at bedside which showed prolonged QT interval and sinus tachycardia with heart rate of 112. [address] Canchola and informed her of patients previous and current heart rate and results of EKG as well as CIWA score. Orders received for patient monitoring on telemetry.
[2019-12-21 00:11] VITALS: BP 127/60
[2019-12-21] MEDS: NS IV 1000 ML 1,000 ML IV SCH ×4 (00:49→21:24)
[2019-12-21] MEDS: LORazepam 1 MG (ATIVAN) TAB PO PRN ×4 (02:58→21:38)
[2019-12-21 03:42] VITALS: BP 125/73
[2019-12-21 05:44] LABS: HEMATOCRIT 25 % (40-54); HEMOGLOBIN 7.4 g/dL (13.3-17.7); MEAN CORPUSCULAR HEMOGLOBIN 21 pg (25-34); MEAN CORPUSCULAR HGB CONC 29 g/dL (32-36); MEAN CORPUSCULAR VOLUME 71 fL (80-99); PLATELET COUNT 53 10^3/uL (130-400); WHITE BLOOD COUNT 6.2 10^3/uL (4.3-11.0)
[2019-12-21 05:57] LABS: CHLORIDE 95 MMOL/L (98-107); POTASSIUM 3.4 MMOL/L (3.6-5.0); SODIUM 136 MMOL/L (135-145)
[2019-12-21 05:59] LABS: GLUCOSE 86 MG/DL (70-105)
[2019-12-21 06:01] LABS: CARBON DIOXIDE 29 MMOL/L (21-32)
[2019-12-21 06:03] LABS: CREATININE SERUM 0.74 MG/DL (0.60-1.30); GFR ESTIMATED > 60
[2019-12-21 06:04] LABS: BUN/CREATININE RATIO 19
[2019-12-21] MEDS ORDERED: KCL 20 MEQ TAB (K-DUR) PO NR (07:00)
[2019-12-21 07:10] VITALS: BP 139/83
--- NOTE | 2019-12-21 11:32 | Progress Note ---
ANDER RAHMAN MED STUDENT 12/21/19 1132: Subjective Subjective/Events-last exam 39 y/o M presented from vomiting d/t alcohol intake/withdrawl. Today, pt states he's eating a clear liquid diet. Pt denies vomiting, nausea, hallucinations, CAMP, or stomach pain. Pt is able to urinate. Pt had BM yesterday that was a little bit of diarrhea. Pt was able to walk around yesterday with a little bit of assistance. Pt states he was given potassium pills and ativan. Pt states he was also getting some meds for his kidneys but could not remember which doctor he spoke to about this. Focused Exam Lactate Level 12/20/19 10:05: Lactic Acid Level 1.42 Objective Exam Last Set of Vital Signs Vital Signs Date Time Temp Pulse Resp B/P (MAP) Pulse Ox O2 Delivery O2 Flow Rate FiO2 12/21/19 08:00 100 Room Air 12/21/19 07:10 37.2 105 16 139/83 (101) Capillary Refill : Less Than 3 SecondsLess Than 3 Seconds I&O Intake and Output 12/21/19 00:00 Intake Total 6890 ml Output Total 1375 ml Balance 5515 ml Intake Oral 2040 ml IV Total 4850 ml Output Urine Total 1375 ml # Bowel Movements 3 General: Alert, Oriented X3, Cooperative, No Acute Distress HEENT: Atraumatic Lungs: Clear to Auscultation, Normal Air Movement Heart: Regular Rate (tachycardic), No Murmurs Neuro: Normal Speech Results/Procedures Lab Laboratory Tests 12/20/19 13:33: Sodium Level 130L, Potassium Level 2.7L, Chloride Level 82L, Carbon Dioxide Level 36H, Anion Gap 12, Blood Urea Nitrogen 25H, Creatinine 1.34H, Estimat Glomerular Filtration Rate 60, BUN/Creatinine Ratio 19, Glucose Level 122H, Calcium Level 7.1L 12/20/19 20:57: Sodium Level 132L, Potassium Level 3.0L, Chloride Level 88L, Carbon Dioxide Level 34H, Anion Gap 10, Blood Urea Nitrogen 18, Creatinine 0.89, Estimat Glomerular Filtration Rate > 60, BUN/Creatinine Ratio 20, Glucose Level 91, Calcium Level 7.6L 12/21/19 04:50: Sodium Level 136, Potassium Level 3.4L, Chloride Level 95L, Carbon Dioxide Level 29, Anion Gap 12, Blood Urea Nitrogen 14, Creatinine 0.74, Estimat Glomerular Filtration Rate > 60, BUN/Creatinine Ratio 19, Glucose Level 86, Calcium Level 8.0L, White Blood Count 6.2, Red Blood Count 3.57L, Hemoglobin 7.4L, Hematocrit 25L, Mean Corpuscular Volume 71L, Mean Corpuscular Hemoglobin 21L, Mean Corpuscular Hemoglobin Concent 29L, Red Cell Distribution Width 16.9H, Platelet Count 53L, Mean Platelet Volume Microbiology 12/19/19 Urine Culture - Final, Complete NO GROWTH Assessment/Plan Assessment/Plan Admission Status: Inpatient Order (span 2 midnights) Assessment & Plan 1. alcohol use disorder - continue KCl and NaCl IV - continue lorazepam - electrolytes are improving but switch to D5W once potassium is under control - repeat BMP today to monitor fluid replacement - withdraw all other medications - discuss and f/u with social work - continue ativan, thiamin, and folate 2. electrolyte abnormalities - continue IV fluids - continue electrolyte intake in foods - jello, gatorade. can switch to solid food - see above 3. cirrhosis - manage alcohol use disorder first - monitor liver enzyme panel - refer to liver specialists. pt needs to follow alcohol abstinence program first. 4. DVT ppx - ppx w/ enoxaparin 5. kidney abnormality - refer to specialists Clinical Quality Measures DVT/VTE Risk/Contraindication: Risk Factor Score Per Nursin RFS Level Per Nursing on Admit: 2=Moderate Supervisory-Addendum Brief Verification & Attestation Participated in pt care: history, MDM, physical Personally performed: exam, history, MDM Care discussed with: Medical Student Procedures: n/a n/a CLAUDINE ROWLAND MD 12/21/19 1242: Assessment/Plan Assessment/Plan (1) Acute alcoholic hepatitis Status: Acute (2) Alcoholic ketoacidosis Status: Resolved (3) Cirrhosis Status: Chronic Qualifiers: (4) Hypomagnesemia Status: Acute (5) Alcoholism /alcohol abuse Status: Acute (6) Nausea & vomiting Status: Acute Qualifiers: Qualified Codes: R11.2 - Nausea with vomiting, unspecified (7) Acute kidney injury Status: Resolved (8) Dehydration Status: Acute (9) Hypokalemia Status: Acute (10) DVT prophylaxis Status: Acute Supervisory-Addendum Brief Verification & Attestation Participated in pt care: history, MDM, physical Personally performed: exam, history, MDM Procedures: n/a I personally saw and examined patient today and did my own history and physical exam which match that of the medical student's. He has improvement in electrolytes, but remains tachycardic and requiring fairly significant amount of ativan, will continue alcohol withdrawal treatment and IVF today, possible d/c tomorrow. ANDER RAHMAN MED STUDENT Dec 21, 2019 11:32 CLAUDINE ROWLAND MD Dec 21, 2019 12:42
[2019-12-21] MEDS ORDERED: NS IV 1000 ML 1,000 ML IV SCH (12:30)
[2019-12-21 13:07] VITALS: BP 145/89
[2019-12-21 15:26] VITALS: BP 146/91
[2019-12-21 19:08] VITALS: BP 137/82
[2019-12-21] MEDS: LORazepam INJ 2 MG/ML (ATIVAN) VIAL IV PRN (22:24)
[2019-12-22 00:29] VITALS: BP 142/75
[2019-12-22] MEDS: NS IV 1000 ML 1,000 ML IV SCH ×3 (04:29→18:03)
[2019-12-22] MEDS: LORazepam 1 MG (ATIVAN) TAB PO PRN ×3 (04:29→18:03)
[2019-12-22 04:37] VITALS: BP 148/86
[2019-12-22 06:22] LABS: HEMATOCRIT 25 % (40-54); HEMOGLOBIN 7.3 g/dL (13.3-17.7); MEAN CORPUSCULAR HEMOGLOBIN 21 pg (25-34); MEAN CORPUSCULAR HGB CONC 29 g/dL (32-36); MEAN CORPUSCULAR VOLUME 71 fL (80-99); PLATELET COUNT 44 10^3/uL (130-400); WHITE BLOOD COUNT 4.4 10^3/uL (4.3-11.0)
[2019-12-22 06:30] LABS: ALBUMIN 3.3 GM/DL (3.2-4.5)
[2019-12-22 06:31] LABS: CHLORIDE 103 MMOL/L (98-107); POTASSIUM 3.4 MMOL/L (3.6-5.0); SODIUM 134 MMOL/L (135-145)
[2019-12-22 06:33] LABS: GLUCOSE 105 MG/DL (70-105); TOTAL PROTEIN 6.7 GM/DL (6.4-8.2)
[2019-12-22 06:34] LABS: CARBON DIOXIDE 23 MMOL/L (21-32)
[2019-12-22 06:35] LABS: BILIRUBIN,TOTAL 1.1 MG/DL (0.1-1.0)
[2019-12-22 06:36] LABS: ALKALINE PHOSPHATASE 60 U/L (40-136)
[2019-12-22 06:37] LABS: CREATININE SERUM 0.67 MG/DL (0.60-1.30); GFR ESTIMATED > 60
[2019-12-22 06:38] LABS: BUN/CREATININE RATIO 6
[2019-12-22 06:40] LABS: ALANINE AMINOTRANSFERASE 32 U/L (0-55)
[2019-12-22 08:00] VITALS: BP 140/72
--- NOTE | 2019-12-22 11:00 | Progress Note - Hospitalist ---
Subjective HPI/CC On Admission Date Seen by Provider: Dec 22, 2019 Time Seen by Provider: 08:30 Subjective/Events-last exam patient denies nausea or vomiting states that he was hungry and he would like regular food. He's been tolerating a clear liquid diet. He reports stools are still a little dark no longer black and forming up he is not yet gone this morning. He denies abdominal pain or chest pain. Focused Exam Lactate Level 12/20/19 10:05: Lactic Acid Level 1.42 Objective Exam Vital Signs Vital Signs Date Time Temp Pulse Resp B/P (MAP) Pulse Ox O2 Delivery O2 Flow Rate FiO2 12/22/19 08:00 36.8 107 20 140/72 (94) 100 Room Air Capillary Refill : Less Than 3 SecondsLess Than 3 Seconds General Appearance: No Apparent Distress, Chronically ill Respiratory: Chest Non Tender, Lungs Clear, Normal Breath Sounds, No Accessory Muscle Use, No Respiratory Distress Cardiovascular: Regular Rate, Rhythm, No Edema, No Gallop, No JVD, No Murmur, Normal Peripheral Pulses Gastrointestinal: Normal Bowel Sounds, No Organomegaly, No Pulsatile Mass, Non Tender, Soft Extremity: Normal Capillary Refill, Normal Inspection, Normal Range of Motion, Non Tender, No Calf Tenderness, No Pedal Edema Results/Procedures Lab Laboratory Tests 12/22/19 05:57 Patient resulted labs reviewed. Assessment/Plan Assessment and Plan Assess & Plan/Chief Complaint 1. Alcohol use disorder with withdrawal and history of withdrawal related seizures. Continuing when necessary Ativan. 2. Alcohol related gastritis improving will advance diet. 3. Cirrhosis reported secondary to number 1. 4. Pancytopenia secondary to number 3 and alcohol toxicity prognosis poor continue to monitor. Patient has not been interested in any form of help or desire to quit drinking thus far. We discussed his terminal prognosis and that he was not yet out of the wong for this hospital stay and still poses significant bleeding risk. He was told with his current trajectory with alcoholism he would not likely survive a year in addition to an extremely poor quality of life if he continues to drink. Critical Care Critically Ill Patient Clinical Quality Measures DVT/VTE Risk/Contraindication: Risk Factor Score Per Nursin RFS Level Per Nursing on Admit: 2=Moderate BRITT ORTEGA MD Dec 22, 2019 11:00
[2019-12-22 12:00] VITALS: BP 157/92
[2019-12-22 16:00] VITALS: BP 121/76
[2019-12-22 19:55] VITALS: BP 124/75
[2019-12-22] MEDS: LORazepam INJ 2 MG/ML (ATIVAN) VIAL IV PRN (20:55)
[2019-12-23] VITALS: BP 130/85
[2019-12-23] MEDS: NS IV 1000 ML 1,000 ML IV SCH ×4 (00:59→21:45)
[2019-12-23] MEDS: LORazepam INJ 2 MG/ML (ATIVAN) VIAL IV PRN (00:59)
[2019-12-23] MEDS: LORazepam 1 MG (ATIVAN) TAB PO PRN ×5 (04:24→23:37)
[2019-12-23 04:56] VITALS: BP 126/74
[2019-12-23 06:16] LABS: HEMOGLOBIN 7.3 g/dL (13.3-17.7)
[2019-12-23 06:18] LABS: MEAN PLATELET VOLUME 10.7 fL (9.0-12.2)
[2019-12-23 08:00] VITALS: BP 133/74
[2019-12-23] MEDS: NICOTINE 14 MG (NICODERM) PATCH TD SCH (11:00)
[2019-12-23 12:00] VITALS: BP 135/84
--- NOTE | 2019-12-23 12:18 | Progress Note - Hospitalist ---
Subjective HPI/CC On Admission Date Seen by Provider: Dec 23, 2019 Time Seen by Provider: 10:45 Subjective/Events-last exam feeling better tolerating solids with no vomiting nausea or diarrhea still feeling weak. No chills or fever noted by patient MAXIMUM TEMPERATURE was little higher at 38. Objective Exam Vital Signs Vital Signs Date Time Temp Pulse Resp B/P (MAP) Pulse Ox O2 Delivery O2 Flow Rate FiO2 12/23/19 08:00 100 Room Air 12/23/19 04:56 37.5 90 18 126/74 (91) Capillary Refill : Less Than 3 SecondsLess Than 3 Seconds General Appearance: No Apparent Distress, Chronically ill Respiratory: Chest Non Tender, Lungs Clear, Normal Breath Sounds, No Accessory Muscle Use, No Respiratory Distress Cardiovascular: Regular Rate, Rhythm, No Edema, No Gallop, No JVD, No Murmur, Normal Peripheral Pulses Gastrointestinal: Normal Bowel Sounds, Non Tender, Soft Results/Procedures Lab Laboratory Tests 12/23/19 05:50 Patient resulted labs reviewed. Assessment/Plan Assessment and Plan Assess & Plan/Chief Complaint 1. Alcohol use disorder with withdrawal and history of withdrawal related seizures. Continuing when necessary Ativan. 2. Alcohol related gastritis improvingpatient tolerating solids. 3. Cirrhosis reported secondary to number 1. 4. Pancytopenia secondary to number 3 and alcohol toxicity with stable anemia and neutropenia and improving thrombocytopenia platelet count up to 70,000. Patient has not been interested in any form of help or desire to quit drinking thus far. We discussed his terminal prognosis and that he was not yet out of t wong for this hospital stay and still poses significant bleeding risk. He was told with his current trajectory with alcoholism he would not likely survive a year in addition to an extremely poor quality of life if he continues to drink. 5. Possible a.m. discharge. Critical Care Critically Ill Patient Clinical Quality Measures DVT/VTE Risk/Contraindication: Risk Factor Score Per Nursin RFS Level Per Nursing on Admit: 2=Moderate BRITT ORTEGA MD Dec 23, 2019 12:18
[2019-12-23 15:28] VITALS: BP 114/76
[2019-12-23 19:13] VITALS: BP 125/84
[2019-12-24 00:56] VITALS: BP 146/80
[2019-12-24 04:00] VITALS: BP 122/79
[2019-12-24] MEDS: NS IV 1000 ML 1,000 ML IV SCH ×2 (04:16→09:59)
[2019-12-24] MEDS: LORazepam 1 MG (ATIVAN) TAB PO PRN ×2 (04:28→08:24)
[2019-12-24 08:00] VITALS: BP 139/89
[2019-12-24] MEDS: NICOTINE 14 MG (NICODERM) PATCH TD SCH (08:59)
--- NOTE | 2019-12-24 09:37 | Discharge Summary ---
Discharge Summary Hospital Course Was the Problem List Reviewed?: Yes Problems/Dx: (1) Nausea & vomiting Status: Acute Qualifiers: Qualified Codes: R11.2 - Nausea with vomiting, unspecified (2) Acute kidney injury Status: Resolved (3) Dehydration Status: Acute (4) Hypokalemia Status: Acute (5) Alcoholism /alcohol abuse Status: Acute Hospital Course Date of Admission: Dec 19, 2019 at 22:26 Admission Diagnosis : Family Physician/Provider: No,Local Physician Date of Discharge: 12/24/19 Discharge Diagnosis: Assessment: Nausea & vomiting Alcoholism Hospital Course: Hospital Course Pt had an uneventful hospital course although it was lengthy. He has a long standing history of severe alcoholism at 39 years old. He has been drinking and smoking and drug use since 13 years old. He had acute kidney injury that was resolved with hydration. Alcohol withdrawal responded to Ativan and overall he was able to eat and drink, urinate and bowels were moving so he was set for DC in which he declined any type of alcohol rehab. Labs and Pending Lab Test: Microbiology 12/19/19 Urine Culture - Final, Complete NO GROWTH Home Meds Active No Active Prescriptions or Reported Medications Assessment/Pt Instructions chc 1 week Discharge Planning: <30 minutes discharge planning Discharge Instructions Discharge Diet: No Restrictions Activity as Tolerated: Yes Discharge Physical Examination Vital Signs Vital Signs Date Time Temp Pulse Resp B/P (MAP) Pulse Ox O2 Delivery O2 Flow Rate FiO2 12/24/19 08:29 98 Room Air 12/24/19 08:00 37.4 112 18 139/89 (106) General Appearance: No Apparent Distress, WD/WN Respiratory: Normal Breath Sounds Cardiovascular: Regular Rate, Rhythm Neurologic/Psychiatric: Alert, Oriented x3 Allergies: Coded Allergies: No Known Drug Allergies (Unverified , 08/31/18) Discharge Summary Date of Admission Dec 19, 2019 at 22:26 Date of Discharge Discharge Date: Dec 24, 2019 Clinical Quality Measures DVT/VTE Risk/Contraindication: Risk Factor Score Per Nursin RFS Level Per Nursing on Admit: 2=Moderate MIQUEL REES DO Dec 24, 2019 09:37
--- NOTE | 2019-12-24 10:41 | Progress Note ---
SHAWN DUMONT MED STUDENT 12/24/19 1041: Progress Note This is a 39 YO male with history of cirrhosis secondary to long-standing EtOH abuse who presented to the ER on 12/18 with nausea and vomiting all day and reports his last drink was 2:00 that morning. He was admitted for acute kidney injury d/t dehydration as well as hypokalemia and was started on IV fluids and potassium. Since admission, pt's withdrawl symptoms of high blood pressure, anxiety, and hallucinations have been treated with Ativan. Last CIWA score today was 8. Potassium has improved from 2.7 on admission to 3.4 today and creatinine was 1.34, now is 0.67. Pt states he has eating, drinking, and going to the bathroom without difficulty and is ready for discharge home. Pt is not interested in receiving help for his alcohol abuse. KARINA REES DO 12/25/19 0503: Supervisory-Addendum Brief Verification & Attestation Participated in pt care: history, MDM, physical Personally performed: exam, history, MDM, supervision of care Care discussed with: Medical Student Procedures: n/a Results interpretation: Verified all documentation Verification and Attestation of Medical Student E/M Service A medical student performed and documented this service in my presence. I reviewed and verified all information documented by the medical student and made modifications to such information, when appropriate. I personally performed the physical exam and medical decision making. Karina Rees, Dec 25, 2019,05:03 SHAWN DUMONT MED STUDENT Dec 24, 2019 10:41 KARINA REES DO Dec 25, 2019 05:03
--- NOTE | 2019-12-24 11:05 | NUR ---
CM/SS: Visited with pt as to plan for discharge and his ability to obtain a ride home Plan: Pt will be discharged to home with no identified services he will have follow up with primary physician, pt continues to not be open to services related to drug and alcohol. Summary: Pt reports he is unable to located a ride home. Pt does indicate that he has the ability to pay with a credit card he will need to do so when he gets to [place]. Pt reports he will be going to [address] [place] [address]. Cab voucher completed, in the event that pt would not be able to pay for the taxi cost. KAHLIL Thurman notified of the cab information.
[2019-12-24 11:15] VITALS: BP 139/89
--- NOTE | 2019-12-24 11:15 | NUR ---
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
== END 2019-12-24 11:15 | disposition home or self-care (01) | DRG 897 ==
LOC: EDUNIT# 19:35 → ER FS 19:39 → 4TH 22:26
PROVIDERS: ADMIT Family Medicine; ATTEND Internal Medicine
DX: F10.10 Alcohol abuse, uncomplicated (principal); N17.9 Acute kidney failure, unspecified; E87.2 Acidosis; G40.89 Other seizures; D61.818 Other pancytopenia; D50.9 Iron deficiency anemia, unspecified; K70.10 Alcoholic hepatitis without ascites; K70.30 Alcoholic cirrhosis of liver without ascites; E83.42 Hypomagnesemia; E86.0 Dehydration; E87.6 Hypokalemia; F41.9 Anxiety disorder, unspecified; F28 Other psychotic disorder not due to a substance or known physiological condition; K29.20 Alcoholic gastritis without bleeding; D69.6 Thrombocytopenia, unspecified
CPT/HCPCS: 36415; 71045; 74018; 80048; 80053; 80320; 81000; 83605; 83690; 83735; 85007; 85025; 85027; 87088; 93005; 96361; 96374; 96375

== ENCOUNTER 2020-04-02 07:50 | Inpatient (IN) | payer SELFPAY ==
[~2020-04-02] VITALS: Ht 182.8 cm; Wt 86.2 kg
[2020-04-02] MEDS ORDERED: LORazepam INJ 2 MG/ML (ATIVAN) VIAL IVP STA (08:11)
[2020-04-02] MEDS ORDERED: ONDANSETRON 4 MG/2 ML (SDV) Z0FRAN IVP STA (08:11)
[2020-04-02] MEDS ORDERED: PANTOPRAZOLE 40 MG (PROTONIX) VIAL IV STA (08:11)
[2020-04-02] MEDS ORDERED: NS IV 1000 ML 1,000 ML IV SCH ×2 (08:15→09:15)
--- NOTE | 2020-04-02 08:25 | ED General ---
General Chief Complaint: Abdominal/GI Problems Stated Complaint: N/V Source of Information: Patient, EMS History of Present Illness Date Seen by Provider: Apr 02, 2020 Time Seen by Provider: 07:56 Initial Comments 40-year-old male presenting with complaints of nausea vomiting and general weakness. He presents by EMS due to weakness and the nausea and vomiting. He states that he has been falling and having trouble getting around due to weakness. He drinks at least a liter of vodka daily. He states his last drink was around 11 AM on March. He has dark coffee-ground colored emesis. He also reports having dark tarry stools. He does have a history of ulcers and cirrhosis. He is supposed to be taking medications for ulcers but has been using the money for alcohol instead. He denies any head injury or pain, and no loss of consciousness. He states that he is just too weak to get up and walk and when he does get up to walk he feels so weak that he falls. He also reports not having any urination so far today. Allergies and Home Medications Allergies Coded Allergies: No Known Drug Allergies (Unverified , 08/31/18) Home Medications No Active Prescriptions or Reported Meds Patient Home Medication List Home Medication List Reviewed: Yes Review of Systems Review of Systems Constitutional: chills, dizziness; No fever; malaise, weakness (general) EENTM: no symptoms reported Respiratory: No hemoptysis, No stridor, No wheezing Cardiovascular: No chest pain; palpitations Gastrointestinal: No abdominal pain, No constipation; heartburn, nausea, vomiting, other (reports coffee ground emesis and dark tarry stools) Genitourinary: decreased output Musculoskeletal: muscle weakness (feels weak all over and having frequent falls in last few days); No neck pain Skin: change in color (multiple bruises in various stages of healing ) Psychiatric/Neurological: Anxiety; Denies Headache; Weakness (general) Hematologic/Lymphatic: Anemia (chronic), Easy Bleeding, Easy Bruising Past Vthhfzp-Potwvz-Avtnzg Hx Past Med/Social Hx: Reviewed Nursing Past Med/Soc Hx Patient Social History Alcohol Use: Regular Use (daily Liter or more of Vodka) Alcohol Beverage of Choice: Vodka Drug of Choice: Marijuana Type Used: Cigarettes 2nd Hand Smoke Exposure: Yes Recent Hopitalizations: No Seasonal Allergies Seasonal Allergies: No Past Medical History Surgeries: Yes Appendectomy, Eye Surgery Respiratory: No Cardiac: No Neurological: No Genitourinary: No Gastrointestinal: No Musculoskeletal: No Endocrine: No HEENT: Yes (Enucleation of left eye) Eye Injury Loss of Vision: Left Cancer: No Psychosocial: No Integumentary: No Blood Disorders: No Physical Exam Vital Signs Vital Signs - First Documented 04/02/20 07:50 Temp 37.2 Pulse 129 Resp 18 B/P (MAP) 120/83 (95) Pulse Ox 100 O2 Delivery Room Air Capillary Refill : Height, Weight, BMI Height: 6'0" Weight: 210lbs. oz. [id number]; 24.54 BMI Method:Stated General Appearance: Anxious, Chronically ill, Moderate Distress (gagging, dry heaving) HEENT: No Moist Mucous Membranes (dry mucous membranes) Neck: Full Range of Motion, Non Tender, Supple Respiratory: Chest Non Tender, Lungs Clear, Normal Breath Sounds Cardiovascular: Normal Peripheral Pulses, Tachycardia Gastrointestinal: Normal Bowel Sounds, No Pulsatile Mass, Non Tender, Soft Rectal: Heme Negative Stool, Black Stool Extremity: Normal Capillary Refill, Normal Range of Motion, Pedal Edema (trace) Neurologic/Psychiatric: Alert, Oriented x3, hearth feeder II-XII Norm as Tested Skin: Warm/Dry, Ecchymosis (multiple bruises in various stages of healing) Progress/Results/Core Measures Suspected Sepsis SIRS Temperature: Pulse: Respiratory Rate: Laboratory Tests 04/02/20 08:08: White Blood Count 7.8 Blood Pressure / Mean: Laboratory Tests 04/02/20 08:08: Creatinine 1.29, INR Comment 1.1, Platelet Count 77L, Total Bilirubin 1.2H Results/Orders Lab Results Laboratory Tests Test 04/02/20 08:08 04/02/20 08:35 Range/Units White Blood Count 7.8 4.3-11.0 10^3/uL Red Blood Count 4.49 4.35-5.85 10^6/uL Hemoglobin 9.1 L 13.3-17.7 G/DL Hematocrit 30 L 40-54 % Mean Corpuscular Volume 66 L 80-99 FL Mean Corpuscular Hemoglobin 20 L 25-34 PG Mean Corpuscular Hemoglobin Concent 31 L 32-36 G/DL Red Cell Distribution Width 22.1 H 10.0-14.5 % Platelet Count 77 L 130-400 10^3/uL Mean Platelet Volume 7.4-10.4 FL Immature Granulocyte % (Auto) 2 % Neutrophils (%) (Auto) 79 H 42-75 % Lymphocytes (%) (Auto) 9 L 12-44 % Monocytes (%) (Auto) 10 0-12 % Eosinophils (%) (Auto) 0 0-10 % Basophils (%) (Auto) 0 0-10 % Neutrophils # (Auto) 6.2 1.8-7.8 X 10^3 Lymphocytes # (Auto) 0.7 L 1.0-4.0 X 10^3 Monocytes # (Auto) 0.8 0.0-1.0 X 10^3 Eosinophils # (Auto) 0.0 0.0-0.3 10^3/uL Basophils # (Auto) 0.0 0.0-0.1 10^3/uL Immature Granulocyte # (Auto) 0.1 0.0-0.1 10^3/uL Prothrombin Time 14.0 12.2-14.7 SEC INR Comment 1.1 0.8-1.4 Activated Partial Thromboplast Time 29 24-35 SEC Sodium Level 122 *L 135-145 MMOL/L Potassium Level 2.3 *L 3.6-5.0 MMOL/L Chloride Level 58 L 98-107 MMOL/L Carbon Dioxide Level 41 H 21-32 MMOL/L Anion Gap 23 H 5-14 MMOL/L Blood Urea Nitrogen 19 H 7-18 MG/DL Creatinine 1.29 0.60-1.30 MG/DL Estimat Glomerular Filtration Rate > 60 BUN/Creatinine Ratio 15 Glucose Level 153 H 70-105 MG/DL Calcium Level 10.9 H 8.5-10.1 MG/DL Corrected Calcium 10.6 H 8.5-10.1 MG/DL Magnesium Level 1.1 *L 1.6-2.4 MG/DL Total Bilirubin 1.2 H 0.1-1.0 MG/DL Aspartate Amino Transf (AST/SGOT) 165 H 5-34 U/L Alanine Aminotransferase (ALT/SGPT) 47 0-55 U/L Alkaline Phosphatase 79 40-136 U/L Troponin I < 0.30 <0.30 NG/ML Pro-B-Type Natriuretic Peptide 157.5 H <75.0 PG/ML Total Protein 8.2 6.4-8.2 GM/DL Albumin 4.4 3.2-4.5 GM/DL Lipase 75 8-78 U/L Salicylates Level < 0.3 L 5.0-20.0 MG/DL Acetaminophen Level < 10 L 10-30 UG/ML Serum Alcohol 113 H <10 MG/DL Urine Color BECKY H Urine Clarity SL CLOUDY Urine pH 8.5 5-9 Urine Specific [place] 1.020 1.016-1.022 Urine Protein 2+ H NEGATIVE Urine Glucose (UA) NEGATIVE NEGATIVE Urine Ketones TRACE H NEGATIVE Urine Nitrite NEGATIVE NEGATIVE Urine Bilirubin 1+ H NEGATIVE Urine Urobilinogen 1.0 < = 1.0 MG/DL Urine Leukocyte Esterase NEGATIVE NEGATIVE Urine RBC (Auto) TRACE H NEGATIVE Urine RBC 5-10 H /HPF Urine WBC 0-2 /HPF Urine Squamous Epithelial Cells RARE /HPF Urine Crystals NONE /LPF Urine Bacteria TRACE /HPF Urine Casts PRESENT /LPF Urine Hyaline Casts >50 H /LPF Urine Mucus MODERATE H /LPF Urine Culture Indicated NO Urine Opiates Screen NEGATIVE NEGATIVE Urine Oxycodone Screen NEGATIVE NEGATIVE Urine Methadone Screen NEGATIVE NEGATIVE Urine Propoxyphene Screen NEGATIVE NEGATIVE Urine Barbiturates Screen NEGATIVE NEGATIVE Ur Tricyclic Antidepressants Screen NEGATIVE NEGATIVE Urine Phencyclidine Screen NEGATIVE NEGATIVE Urine Amphetamines Screen NEGATIVE NEGATIVE Urine Methamphetamines Screen NEGATIVE NEGATIVE Urine Benzodiazepines Screen NEGATIVE NEGATIVE Urine Cocaine Screen NEGATIVE NEGATIVE Urine Cannabinoids Screen POSITIVE H NEGATIVE My Orders Orders - CAL TURCIOS MD Ua Culture If Indicated (04/02/20 08:06) Cbc With Automated Diff (04/02/20 08:06) Comprehensive Metabolic Panel (04/02/20 08:06) Alcohol (04/02/20 08:06) Drug Screen Stat (Urine) (04/02/20 08:06) Acetaminophen (04/02/20 08:06) Salicylate (04/02/20 08:06) Ekg Tracing (04/02/20 08:06) Ed Iv/Invasive Line Start (04/02/20 08:06) Monitor-Rhythm Ecg Trace Only (04/02/20 08:06) Fecal Occult Bedside (04/02/20 08:06) Bladder Scan (04/02/20 08:06) Magnesium (04/02/20 08:06) Lorazepam Injection (Ativan Injection) (04/02/20 08:11) Ondansetron Injection (Zofran Injectio (04/02/20 08:11) Pantoprazole Injection (Protonix Injecti (04/02/20 08:11) Ns Iv 1000 Ml (Sodium Chloride 0.9%) (04/02/20 08:15) Lipase (04/02/20 08:18) Troponin I Fs (04/02/20 08:33) Probnp Fs (04/02/20 08:33) Protime With Inr (04/02/20 08:33) Partial Thromboplastin Time (04/02/20 08:33) Potassium Cl 10meq/50ml Ivpb (Kcl 10 Meq (04/02/20 09:15) Magnesium 1 Gm/100 Ml Ivpb (Magnesium Coy (04/02/20 09:15) Thiamine Injection (Vitamin B-1 Injectio (04/02/20 09:15) Ns Iv 1000 Ml (Sodium Chloride 0.9%) (04/02/20 09:15) Lorazepam Injection (Ativan Injection) (04/02/20 09:45) Medications Given in ED Current Medications Medications Dose Ordered Sig/Cyndi Route Start Time Stop Time Status Last Admin Dose Admin Lorazepam 1 mg ONCE ONCE IVP 04/02/20 09:45 04/02/20 09:46 DC 04/02/20 09:53 1 MG Vital Signs/I&O 04/02/20 07:50 Temp 37.2 Pulse 129 Resp 18 B/P (MAP) 120/83 (95) Pulse Ox 100 O2 Delivery Room Air Capillary Refill : Progress Note #1: Progress Note check labs, alcohol, UDS, magnesium. Since he reports not being able to urinate all day will obtain a bladder scan to see if there is urine present in his bladder. If so we'll try to have him urinate and may need to place a catheter at least by a straight cath to obtain a specimen. Since he is having coffee- ground emesis and dark tarry stools will give Protonix and obtain Hemoccult. Give IV fluids for hydration. With his tachycardia obtain an electrocardiogram and telemetry monitoring. Progress Note #2: Time: 09:17 Progress Note labs show stable CBC with chronic anemia having Hgb 9.1 and Platelets 77. Chemistry has hyponatremia at 122, hypokalemia at 2.2, continued alcohol intoxication at 113, mild elevation of Cr to 1.29, Total Bilirubin at 1.2, Magnesium low at 1.1. Normal Lipase and Troponin. UA with protein and ketones but no infection and UDS only showing marijuana with THC present. page placed to Dr. Dunn with hospitalist service about admit of pt. Give supplement of magnesium 1gm IV, KCl 10 mEq, Thiamine 100 mg IM, Continue IVF hydation of NS at 150 mLs/hr. Progress Note #3: Progress Note With his alcohol still at 113, low platelets, chronic anemia, low sodium, low potassium, low magnesium and having chronic alcohol gastritis will admit with alcohol withdrawal protocol order set and seizure precautions with his low sodium and chronic alcohol abuse. With hydration and ativan his heart rate has dipped down into the 110s. ECG Initial ECG Impression Date: Apr 02, 2020 Initial ECG Impression Time: 08:20 Initial ECG Rate: 117 Initial ECG Rhythm: S.Tach Initial ECG Comparisson: Unchanged Comment Appears similar to tracing from July 2019. Sinus tachycardia with a heart rate of 117 bpm. [place] interval 95 ms. Repolarization abnormalities concerning for ischemia. Prolonged QT interval of 387 ms and a QTc interval of [address] elevation. Departure Communication (Admissions) Time/Spoke to Admitting Phy: 09:32 d/w Dr. Dunn for hospitalist service. Will admit to med surg telemetry bed with seizure precautions and alcohol withdrawal order set. Impression Primary Impression: Hyponatremia Additional Impressions: Hypokalemia Hypomagnesemia Alcohol withdrawal Qualified Codes: F10.230 - Alcohol dependence with withdrawal, uncomplicated Alcoholic gastritis without hemorrhage Qualified Codes: K29.20 - Alcoholic gastritis without bleeding Nausea & vomiting Qualified Codes: R11.14 - Bilious vomiting Dehydration Thrombocytopenia Anemia, chronic disease Disposition: 30 STILL A PATIENT Condition: Stable Admissions Decision to Admit Reason: Admit from ER (General) Decision to Admit/Date: Apr 02, 2020 Time/Decision to Admit Time: 09:32 Departure-Patient Inst. Referrals: NO,LOCAL PHYSICIAN (PCP/Family) Primary Care Physician Scripts No Active Prescriptions or Reported Meds CAL TURCIOS MD Apr 02, 2020 08:25
[2020-04-02 08:30] LABS: BASOPHILS % (AUTO) 0 % (0-10); EOSINOPHILS % (AUTO) 0 % (0-10); HEMATOCRIT 30 % (40-54); HEMOGLOBIN 9.1 G/DL (13.3-17.7); LYMPHOCYTES # (AUTO) 0.7 X 10^3 (1.0-4.0); LYMPHOCYTES % (AUTO) 9 % (12-44); MEAN CORPUSCULAR HEMOGLOBIN 20 PG (25-34); MEAN CORPUSCULAR HGB CONC 31 G/DL (32-36); MEAN CORPUSCULAR VOLUME 66 FL (80-99); MONOCYTES # (AUTO) 0.8 X 10^3 (0.0-1.0); MONOCYTES % (AUTO) 10 % (0-12); NEUTROPHILS # (AUTO) 6.2 X 10^3 (1.8-7.8); NEUTROPHILS % (AUTO) 79 % (42-75); PLATELET COUNT 77 10^3/uL (130-400); WHITE BLOOD COUNT 7.8 10^3/uL (4.3-11.0)
[2020-04-02 08:49] LABS: INR 1.1 (0.8-1.4)
[2020-04-02 08:54] LABS: POTASSIUM 2.3 MMOL/L (3.6-5.0); SODIUM 122 MMOL/L (135-145)
[2020-04-02 08:55] LABS: BUN/CREATININE RATIO 15; CALCIUM 10.9 MG/DL (8.5-10.1); CARBON DIOXIDE 41 MMOL/L (21-32); CHLORIDE 58 MMOL/L (98-107); CREATININE SERUM 1.29 MG/DL (0.60-1.30); GFR ESTIMATED > 60; GLUCOSE 153 MG/DL (70-105)
[2020-04-02 08:56] LABS: ACETAMINOPHEN < 10 UG/ML (10-30); ALANINE AMINOTRANSFERASE 47 U/L (0-55); ALBUMIN 4.4 GM/DL (3.2-4.5); ALKALINE PHOSPHATASE 79 U/L (40-136); BILIRUBIN,TOTAL 1.2 MG/DL (0.1-1.0); SALICYLATE < 0.3 MG/DL (5.0-20.0); TOTAL PROTEIN 8.2 GM/DL (6.4-8.2)
[2020-04-02 09:13] LABS: COLOR,URINE AMBER
[2020-04-02 09:14] LABS: GLUCOSE, URINE (UA) NEGATIVE (NEGATIVE); KETONES,URINE TRACE (NEGATIVE); NITRITE,URINE NEGATIVE (NEGATIVE); PH,URINE 8.5 (5-9); PROTEIN,URINE 2+ (NEGATIVE)
[2020-04-02 09:15] LABS: BACTERIA,URINE TRACE /HPF; BILIRUBIN,URINE 1+ (NEGATIVE); HYALINE CASTS, URINE >50 /LPF; LEUKOCYTE ESTERASE ,URINE NEGATIVE (NEGATIVE); SQUAMOUS EPITHELIAL CELL,UR RARE /HPF; WBC,URINE 0-2 /HPF
[2020-04-02] MEDS ORDERED: MAGNESIUM 1 GM/100 ML IVPB 100 ML IV STA (09:15)
[2020-04-02] MEDS ORDERED: THIAMINE 100 MG/ML 2 ML (VITAMIN B-1) VIAL IM STA (09:15)
[2020-04-02] MEDS ORDERED: POTASSIUM CL 10MEQ/50ML IVPB 50 ML IV STA (09:15)
[2020-04-02 09:16] LABS: AMPHETAMINE SCREEN, URINE NEGATIVE (NEGATIVE); BARBITURATE SCREEN URINE NEGATIVE (NEGATIVE); BENZODIAZEPINES SCREEN URINE NEGATIVE (NEGATIVE); CANNABINOID SCREEN, URINE POSITIVE (NEGATIVE); CLARITY,URINE SL CLOUDY; COCAINE SCREEN URINE NEGATIVE (NEGATIVE); METHADONE STAT NEGATIVE (NEGATIVE); METHAMPHETAMINE SCREEN URINE S NEGATIVE (NEGATIVE); OPIATE SCREEN URINE NEGATIVE (NEGATIVE); OXYCODONE STAT NEGATIVE (NEGATIVE); PROPOXYPHENE STAT NEGATIVE (NEGATIVE); TRICYCLIC ANTIDEPRESSANTS SCRE NEGATIVE (NEGATIVE)
[2020-04-02] MEDS ORDERED: LORazepam INJ 2 MG/ML (ATIVAN) VIAL IVP ONE (09:45)
--- NOTE | 2020-04-02 11:40 | NUR ---
DEMETRIS ALEJO admitted to room 407-1, with an admitting diagnosis of HYPONATREMAI,HYPOKALEMIA, HYPOMAGNESEMIA,ALCOHOL WITHDRAWAL THROMBOCYTOPENIA,ANEMIA, on 04/02/20 from via AMBULANCE, accompanied by EMS. DEMETRIS ALEJO introduced to surroundings, call light, bed controls, phone, TV, temperature control, lights, meal times, smoking policy, visitor policy, side rail policy, bathrooms and showers. Patient Rights given to patient in the handbook. DEMETRIS ALEJO verbalizes understanding that [facility] is not responsible for the loss or damage to any personal effects or valuables that are kept in the patients posession during their hospitalization. DEMETRIS ALEJO verbalizes understanding of Interdisciplinary Patient Education. Patient and/or family were informed about the Rapid Response Team and its purpose.
[2020-04-02] MEDS ORDERED: LORazepam INJ 2 MG/ML (ATIVAN) VIAL IM/IV PRN (12:00)
[2020-04-02] MEDS ORDERED: SENNA W/DOCUSATE (SENOKOT S) TABLET PO PRN (12:00)
[2020-04-02] MEDS ORDERED: ONDANSETRON 4 MG/2 ML (SDV) Z0FRAN IV PRN (12:00)
[2020-04-02] MEDS ORDERED: ANTACID SUSP 30 ML UDC (MYLANTA) PO PRN (12:00)
[2020-04-02] MEDS ORDERED: LORazepam INJ 2 MG/ML (ATIVAN) VIAL IV PRN (12:00)
[2020-04-02] MEDS ORDERED: LORazepam 1 MG (ATIVAN) TAB PO PRN (12:00)
[2020-04-02] MEDS ORDERED: D5 1/2 NS 1000 ML IV SOLUTION 1,000 ML IV PRN (12:00)
[2020-04-02] MEDS ORDERED: ONDANSETRON 4 MG (ZOFRAN) ORAL DISSOLVE TAB SL PRN (12:00)
[2020-04-02] MEDS: D5 1/2 NS W/KCL 20 MEQ/L 1,000 ML IV SCH ×2 (12:11→18:54)
[2020-04-02] MEDS: MULTIVIT W/MINERALS TAB (THERAGRAN M) PO SCH (13:06)
[2020-04-02] MEDS: FOLIC ACID 1 MG TAB PO SCH (13:06)
--- NOTE | 2020-04-02 14:18 | History & Physical-Hospitalist ---
History of Present Illness HPI/Chief Complaint Pt is a 40yoCM with a PMH of HTN and alcohol dependence who presented to the ER due to weakness. He states that he has been an alcoholic for many years and drinks at least 1 liter of liquor per day. He decided that he wants to quit drinking and had his last drink yesterday morning aroudn 1100am. He then developed weakness and nausea. When asked when this started he states about 3 days ago. When I clarified if it started 3 days ago or when he quit drinking yesterday he said it was all the same time. I am unfortunately unsure when he actually quit drinking because of this. He reported some dark stools to the ER but denied this to me. He does complain of nausea and vomiting though. Mostly he is concerned about his weakness. Source: patient Date Seen 04/02/20 Time Seen by a Provider: 13:57 Attending Physician Timothy Dunn MD PCP No,Local Physician Referring Physician Date of Admission Apr 02, 2020 at 11:40 Home Medications & Allergies Home Medications Reviewed patient Home Medication Reconciliation performed by pharmacy medication reconciliations health technician and/or nursing. Patients Allergies have been reviewed. Allergies Allergies Coded Allergies No Known Drug Allergies (Unverified08/31/18) Past Citxkfj-Hbutbs-Ljtsva Hx Past Med/Social Hx: Reviewed Nursing Past Med/Soc Hx Patient Social History Alcohol Use: Regular Use (daily Liter or more of Vodka) Alcohol Beverage of Choice: Vodka Recreational Drug Use: Yes Drug of Choice: Marijuana Smoking Status: Current Everyday Smoker Type Used: Cigarettes 2nd Hand Smoke Exposure: Yes Recent Foreign Travel: No Contact w/other who traveled: No Recent Hopitalizations: No Recent Infectious Disease Expo: No Seasonal Allergies Seasonal Allergies: No Past Medical History Surgeries: Appendectomy, Eye Surgery HEENT: Eye Injury Loss of Vision: Left History of Blood Disorders: No Review of Systems Constitutional: No chills, No fever; malaise, weakness Physical Exam Physical Exam Vital Signs Vital Signs - First Documented 04/02/20 07:50 Temp 37.2 Pulse 129 Resp 18 B/P (MAP) 120/83 (95) Pulse Ox 100 O2 Delivery Room Air Capillary Refill : Less Than 3 Seconds Height, Weight, BMI Height: 6'0" Weight: 210lbs. oz. 95.258355qh; 25.79 BMI Method:Stated General Appearance: No Apparent Distress, Chronically ill HEENT: Moist Mucous Membranes, Other (enucleated right eye) Neck: Normal Inspection, Supple Respiratory: Lungs Clear, No Accessory Muscle Use, No Respiratory Distress Cardiovascular: Regular Rate, Rhythm, No Murmur Gastrointestinal: Normal Bowel Sounds, Soft Extremity: Normal Capillary Refill, No Calf Tenderness, No Pedal Edema Neurologic/Psychiatric: Alert, Oriented x3, Normal Mood/Affect Skin: Normal Color, Warm/Dry Results Results/Procedures Labs Laboratory Tests 04/03/20 05:24 04/03/20 10:30 04/04/20 04:50 Patient resulted labs reviewed. Imaging: Reviewed Imaging Report Assessment/Plan Admission Diagnosis Alcohol Withdrawal Admission Status: Inpatient Order (span 2 midnights) Reason for Inpatient Admission: see below Assessment and Plan Alcohol Withdrawal Alcohol dependence THC+ CIWA protocol in place litigation services manager contacted Unsure of when last drink actually was but alcohol level 113 on arrival Thiamine, folic acid, and MTV ordered Hyponatremia- beer potomania Hypokalemia Hypomagnesemia Continue electrolyte replacement No MS changes, this is [facility] reviewing records Replace and correct slowly for Na trend Anemia Monitor H&H No evidence of bleeding at this time DVT ppx: SCDs only due to thrombocytopenia, anemia, and reported dark stools Diagnosis/Problems Diagnosis/Problems (1) Hypokalemia Status: Acute (2) Dehydration Status: Acute (3) Acute kidney injury Status: Resolved Resolution Date/Time: 12/21/19 @ 12:40 (4) Alcoholism /alcohol abuse Status: Acute (5) Anemia, chronic disease Status: Acute (6) Alcohol withdrawal Status: Acute Qualifiers: Complication of substance-induced condition: uncomplicated Qualified Codes: F10.230 - Alcohol dependence with withdrawal, uncomplicated (7) Thrombocytopenia Status: Acute (8) Hyponatremia Status: Acute (9) DVT prophylaxis Status: Acute (10) Cirrhosis Status: Chronic (11) Nausea & vomiting Status: Acute Qualifiers: Vomiting type: bilious vomiting Qualified Codes: R11.14 - Bilious vomiting (12) Hypomagnesemia Status: Acute (13) Hypophosphatemia Status: Acute TIMOTHY DUNN MD Apr 02, 2020 14:18
[2020-04-02 14:55] LABS: BUN/CREATININE RATIO 17; CALCIUM 8.6 MG/DL (8.5-10.1); CARBON DIOXIDE 40 MMOL/L (21-32); CHLORIDE 61 MMOL/L (98-107); CREATININE SERUM 1.14 MG/DL (0.60-1.30); GFR ESTIMATED > 60; GLUCOSE 193 MG/DL (70-105); MAGNESIUM 1.3 MG/DL (1.6-2.4)
--- NOTE | 2020-04-02 15:01 | NUR ---
SPOKE WITH THE PT TO COMPLETE THE MED REC PT DENIES TAKING ANY PRESCRIPTION OR OTC MEDICATIONS
[2020-04-02 15:04] LABS: POTASSIUM 2.5 MMOL/L (3.6-5.0); SODIUM 122 MMOL/L (135-145)
--- NOTE | 2020-04-02 15:29 | NUR ---
CRITICAL LABS GIVEN TO DR CONTRERAS
--- NOTE | 2020-04-02 15:33 | Physical Therapy Evaluation ---
PT Evaluation-General Medical Diagnosis Admission Date Apr 02, 2020 at 11:40 Medical Diagnosis: alcohol withdrawl Onset Date: Apr 02, 2020 Therapy Diagnosis Therapy Diagnosis: impaired mobility, strength Height/Weight Height (Feet): 6 Height (Inches): 0 Weight (Pounds): 210 Precautions Precautions/Isolations: Seizure, Fall Prevention Referral Physician: Shaun Reason for Referral: Evaluation/Treatment Medical History Additional Medical History Past Medical History Surgeries: Appendectomy, Eye Surgery HEENT: Eye Injury Loss of Vision: Left Reviewed History: Yes Social History Patient states he sometimes lives with his mother and sometimes with his grandmother. Prior Prior Level of Function SCALE: Activities may be completed with or without assistive devices. 8-Lsbsixufjk-udgwdpw completes the activity by him/herself with no assistance from a helper. 5-Set-up or Clean-up Assistance-helper sets up or cleans up; patient completes activity. [place] assists only prior to or following the activity. 4-Supervision or Touching Assistance-helper provides verbal cues and/or touching/steadying and/or contact guard assistance as patient completes activity. Assistance may be provided throughout the activity or intermittently. 3-Partial/Moderate Assistance-helper does LESS THAN HALF the effort. [place] lifts, holds or supports trunk or limbs, but provides less than half the effort. 2-Substantial/Maximal Assistance-helper does MORE THAN HALF the effort. [place] lifts or holds trunk or limbs and provides more than half the effort. 5-Xnzjlqycv-tlgtzi does ALL the effort. Patient does none of the effort to complete the activity. Or, the assistance of 2 or more helpers is required for the patient to complete the activity. If activity was not attempted, code reason: 7-Patient Refused. 9-Not Applicable-not attempted and the patient did not perform the activity before the current illness, exacerbation or injury. 10-Not Attempted due to Environmental Limitations-(lack of equipment, weather restraints, etc.). 88-Not Attempted due to Medical Conditions or Safety Concerns. Bed Mobility: 6 Transfers (B,C,W/C): 6 Gait: 6 Stairs: 6 Indoor Mobility (Ambulation): Independent Stairs: Independent PT Evaluation-Current Subjective Patient in bed pre tx, agrees to PT, has 5/10 back pain. Patient states he has seizures and had one yesterday. Pt/Family Goals "to get stronger Objective Patient Orientation: Person, Place, Situation ROM/Strength ROM Lower Extremities WNL Strength Lower Extremities LLE (hip flexion 3-/5, knee flexion 4/5, knee extension 4/5, dorsiflexion 4/5), RLE (hip flexion 3-/5, knee flexion 4/5, knee extension 4/5, dorsiflexion 4/5) Sensory Hearing: Functional Sensation Right Lower Extremit: Intact Sensation Left Lower Extremity: Intact Transfers Roll Left to Right (QC): 6 Sit to Lying (QC): 6 Lying to Sitting/Side of Bed(Q: 3 Patient sits on the side of the bed with min assist, he has some unsteadiness and dizziness that passes after a minute. He scoots to the edge of the bed and tries to put on his socks and almost becomes unresponsive. He is stopped from putting on his socks and sits there for about 30 seconds and seems to recover. Patient layed back down at this time. Nursing notified. Balance Sitting Static: Fair Sitting Dynamic: Fair Assessment/Needs Patient has impaired mobility, strength, endurance. He has dizziness with sitting, almost becomes unresponsive. Patient in bed post tx with nurse call, phone, tray, all needs met, bed alarm on. Rehab Potential: Fair PT Group Home Goals Group Home Goals PT [place] Worker Goals Time Frame: Apr 09, 2020 Roll Left & Right (QC): 6 Sit to Lying (QC): 6 Lying-Sitting on Side/Bed(QC): 6 Sit to Stand (QC): 4 Chair/Ndh-ls-Pdzeo Xfer(QC): 4 Walk 10 feet (QC): 4 Walk 50ft with 2 Turns (QC): 4 PT Plan Problem List Problem List: Activity Tolerance, Functional Strength, Safety, Balance, Gait, Transfer, Bed Mobility, ROM Treatment/Plan Treatment Plan: Continue Plan of Care Treatment Plan: Bed Mobility, Education, Functional Activity [place], Functional Strength, Gait, Safety, Therapeutic Exercise, Transfers Treatment Duration: Apr 09, 2020 Frequency: 6 times per week Estimated Hrs Per Day: .25 hour per day Patient and/or Family Agrees t: Yes Safety Risks/Education Patient Education: Correct Positioning, Safety Issues Teaching Recipient: Patient Teaching Methods: Demonstration, Discussion Response to Teaching: Reinforcement Needed Discharge Recommendations Plan Patient will perform bed mobility and transfer training, balance and endurance training, functional strengthening, stair training, gait training, and education, to improve functional mobility and independence at home. Therapy Discharge Recommendati: Intermittent Supervision, Scheduled Assistance, Home & Family Time/GCodes Time In: 1500 Time Out: 1515 Total Billed Treatment Time: 15 Total Billed Treatment 1 visit NOEMI 15' VALENTIN MARCELINO PT Apr 02, 2020 15:33
--- NOTE | 2020-04-02 15:50 | Occupational Therapy Eval ---
OT Evaluation-General/PLF Medical Diagnosis Admission Date Apr 02, 2020 at 11:40 Medical Diagnosis: alcohol withdrawl/hyponatremia Onset Date: Apr 02, 2020 Therapy Diagnosis Therapy Diagnosis: Weakness Height/Weight Height (Feet): 6 Height (Inches): 0 Weight (Pounds): 210 Precautions Precautions/Isolations: Seizure, Fall Prevention, Standard Precautions Weight Bear Status Weight Bearing Restriction: Weight Bearing/Tolerated Referral Physician: Shaun Referral Reason: Activity Tolerance, Self Care, Evaluation/Treatment, Strengthening/ROM Medical History Pertinent Medical History: HTN Current History Pt. was admitted with significant reported weakness, secondary to alcohol withdrawal. Pt. reports that he drinks a liter of vodka every day. Reviewed History: Yes Social History Pt. verbalizes that he spends his time staying between his mother's home, and his grandmother's home. Pt. had difficulty answering all questions. ADL-Prior Level of Function SCALE: Activities may be completed with or without assistive devices. 0-Yzxrleqvsf-kpfbddi completes the activity by him/herself with no assistance from a helper. 5-Set-up or Clean-up Assistance-helper sets up or cleans up; patient completes activity. [place] assists only prior to or following the activity. 4-Supervision or Touching Assistance-helper provides verbal cues and/or touching/steadying and/or contact guard assistance as patient completes activity. Assistance may be provided throughout the activity or intermittently. 3-Partial/Moderate Assistance-helper does LESS THAN HALF the effort. [place] lifts, holds or supports trunk or limbs, but provides less than half the effort. 2-Substantial/Maximal Assistance-helper does MORE THAN HALF the effort. [place] lifts or holds trunk or limbs and provides more than half the effort. 7-Yixheznsc-bwsupp does ALL the effort. Patient does none of the effort to complete the activity. Or, the assistance of 2 or more helpers is required for the patient to complete the activity. If activity was not attempted, code reason: 7-Patient Refused. 9-Not Applicable-not attempted and the patient did not perform the activity before the current illness, exacerbation or injury. 10-Not Attempted due to Environmental Limitations-(lack of equipment, weather restraints, etc.). 88-Not Attempted due to Medical Conditions or Safety Concerns. ADL PLOF Comments Pt. has difficulty stating his prior level of function. Does state, "see, I'm an alcoholic. I drink a liter a day and sometimes wake up on the floor. But I don't get drunk always. I drink to maintain." Pt. verbalizes that he does not have a home of his own, but stays between his mother and grandmother's homes. He states that "sometimes" he needs help dressing. Self Care: Unknown Functional Cognition: Unknown OT Current Status Subjective Pt. states that he does not feel well. Does not state pain. States that he feels dizzy with movement. Appearance Pt. in bed upon arrival. Mental Status/Objective Patient Orientation: Unable to Assess Attachments: IV Current Hand Dominance: Right Upper Extremity ROM WFL Upper Extremity Strength 4/5 bilateral UE ADL-Treatment Eating (QC): 6 (Pt. eating cottage cheese when therapy entered.) On/Off Footwear (QC): 2 Other Treatments Pt. on seizure precations. He is difficult to understand at times. OT/PT complete co-treatment due to need of skilled assessment x 2 therapists. Pt. transfers supine-sit with min assist, but has difficulty with sitting balance. Sits for a minute, and is able to scoot further out. PT focuses on mobility while OT facilitates ADL skills. OT attempts to have pt. don socks to stand. Pt. is able to don one sock with effort, but in attempting second sock, becomes briefly non-responsive, closing eyes. Pt. is able to open after several seconds, and seems slightly sweaty. Therapy does not feel pt. safe at this moment to stand. Pt. transfers back to bed with SBA, and is able to scoot self up in bed with SBA. All rails up and bed alarm set. Pt. has telesitter in room, and call light in place. Nursing notified immediately. Nursing to assess pt. Pt. talking and alert when therapy left room. Education OT Patient Education: Correct positioning, Modified ADL techniques, Progress toward Goal/Update tx plan, Purpose of tx/functional activities, Reviewed precautions, Rehab process, Transfer techniques Teaching Recipient: Patient Teaching Methods: Demonstration, Discussion Response to Teaching: Verbalize Understanding, Return Demonstration, Reinforcement Needed OT Snf Goals Canceling And Cutting Control Clerk Goals Time Frame: Apr 16, 2020 Eating (QC): 6 Oral Hygiene (QC): 6 Toileting Hygiene (QC): 6 Shower/Bathe Self (QC): 4 Upper Body Dressing (QC): 6 Lower Body Dressing (QC): 6 On/Off Footwear (QC): 6 Additional Goals: 1-Demonstrate ADL Tasks, 2-Verbalize Understanding, 3- ImproveStrength/Desmond 1=Demonstrate adherence to instructed precautions during ADL tasks. 2=Patient will verbalize/demonstrate understanding of assistive devices/modifications for ADL. 3=Patient will improve strength/tolerance for activity to enable patient to perform ADL's. OT Education/Plan Problem List/Assessment Assessment: Decreased Activ Tolerance, Dependent Transfers, Impaired Funct Balance, Impaired I ADL's, Impaired Self-Care Skills Discharge Recommendations Plan/Recommendations: Continue POC Therapy Discharge Recommendati: Post Acute OT Treatment Plan/Plan of Care Treatment,Training & Education: Yes Patient would benefit from OT for education, treatment and training to promote independence in ADL's, mobility, safety and/or upper extremity function for ADL's. Plan of Care: ADL Retraining, Functional Mobility, UE Funct Exercise/Act Treatment Duration: Apr 16, 2020 Frequency: 5 times per week Estimated Hrs Per Day: .25 hour per day Agreement: Yes Rehab Potential: Fair Time/GCodes Start Time: 15:00 Stop Time: 15:15 Total Time Billed (hr/min): 15 Billed Treatment Time 1, ÁLVARO BALLESTEROS OT Apr 02, 2020 15:50
[2020-04-02] MEDS: POTASSIUM CL 10MEQ/50ML IVPB 50 ML IV SCH ×4 (15:58→19:25)
[2020-04-02 16:00] VITALS: BP 145/76
[2020-04-02] MEDS: MAGNESIUM 1 GM/100 ML IVPB 100 ML IV SCH ×2 (16:11→17:21)
[2020-04-02] MEDS: KCL 20 MEQ TAB (K-DUR) PO SCH (18:09)
[2020-04-02] MEDS: MAGNESIUM OXIDE (MAG-OX)400 MG TAB PO SCH (18:09)
[2020-04-02] MEDS: MELATONIN 3 MG TABLET PO PRN (18:54)
--- NOTE | 2020-04-02 19:50 | NUR ---
CALLED DR ORTEGA TO REPORT PT FEVER OF 100.4. NEW ORDER FOR TYLENOL 650MG Q6 FOR FEVER GREATER THAN 101.5 DUE TO PT POOR LIVER FUNCTION. NO TYLENOL GIVEN AT THIS TIME. WILL CONT TO MONITOR FEVER. LOWERED ROOM TEMP AND REMOVED PT BLANKET.
[2020-04-02 20:00] VITALS: BP 124/69
[2020-04-02] MEDS ORDERED: ACETAMINOPHEN 325 MG TABLET PO PRN (20:30)
[2020-04-02] MEDS: PANTOPRAZOLE 40 MG (PROTONIX) VIAL IV SCH (20:35)
[2020-04-03 00:19] VITALS: BP 128/68
[2020-04-03] MEDS: D5 1/2 NS W/KCL 20 MEQ/L 1,000 ML IV SCH ×4 (02:44→18:17)
[2020-04-03 04:00] VITALS: BP 129/90
[2020-04-03] MEDS: MULTIVIT W/MINERALS TAB (THERAGRAN M) PO SCH (05:58)
[2020-04-03] MEDS: FOLIC ACID 1 MG TAB PO SCH (05:58)
[2020-04-03] MEDS: THIAMINE 100 MG (VITAMIN B-1) TAB PO SCH (05:58)
[2020-04-03 06:03] LABS: BASOPHILS % (AUTO) 0 % (0-10); HEMOGLOBIN 7.1 g/dL (13.3-17.7); LYMPHOCYTES # (AUTO) 1.3 10^3/uL (1.0-4.0)
[2020-04-03 06:05] LABS: EOSINOPHILS % (AUTO) 0 % (0-10); HEMATOCRIT 23 % (40-54); LYMPHOCYTES % (AUTO) 18 % (12-44); MEAN CORPUSCULAR HEMOGLOBIN 21 pg (25-34); MEAN CORPUSCULAR HGB CONC 31 g/dL (32-36); MEAN CORPUSCULAR VOLUME 67 fL (80-99); MONOCYTES # (AUTO) 0.7 10^3/uL (0.0-1.0); MONOCYTES % (AUTO) 10 % (0-12); NEUTROPHILS # (AUTO) 4.9 10^3/uL (1.8-7.8); NEUTROPHILS % (AUTO) 71 % (42-75); PLATELET COUNT 46 10^3/uL (130-400)
[2020-04-03 06:35] LABS: ALANINE AMINOTRANSFERASE 40 U/L (0-55); ALBUMIN 3.3 GM/DL (3.2-4.5); ALKALINE PHOSPHATASE 69 U/L (40-136); BILIRUBIN,TOTAL 1.7 MG/DL (0.1-1.0); BUN/CREATININE RATIO 16; CALCIUM 8.4 MG/DL (8.5-10.1); CARBON DIOXIDE 38 MMOL/L (21-32); CHLORIDE 70 MMOL/L (98-107); CREATININE SERUM 0.81 MG/DL (0.60-1.30); GFR ESTIMATED > 60; GLUCOSE 93 MG/DL (70-105); MAGNESIUM 1.7 MG/DL (1.6-2.4); POTASSIUM 2.6 MMOL/L (3.6-5.0); TOTAL PROTEIN 6.4 GM/DL (6.4-8.2)
[2020-04-03 06:42] LABS: SODIUM 120 MMOL/L (135-145)
--- NOTE | 2020-04-03 07:26 | NUR ---
Consulted with Dr. Dunn regarding patient critical sodium level of 120. Dr. Dunn requested a 1200cc daily sodium restriction. Orders placed, patient notified, sign placed on door.
[2020-04-03 08:00] VITALS: BP 119/73
[2020-04-03] MEDS: MAGNESIUM OXIDE (MAG-OX)400 MG TAB PO SCH ×2 (08:26→18:16)
[2020-04-03] MEDS: KCL 20 MEQ TAB (K-DUR) PO SCH ×2 (08:26→18:16)
[2020-04-03] MEDS: MAGNESIUM 1 GM/100 ML IVPB 100 ML IV SCH ×2 (08:26→09:30)
[2020-04-03] MEDS: PANTOPRAZOLE 40 MG (PROTONIX) VIAL IV SCH ×2 (08:27→20:03)
[2020-04-03] MEDS: POTASSIUM CL 10MEQ/50ML IVPB 50 ML IV SCH ×4 (08:27→11:29)
--- NOTE | 2020-04-03 09:39 | Progress Note - Hospitalist ---
Subjective HPI/CC On Admission Date Seen by Provider: Apr 03, 2020 Time Seen by Provider: 09:39 Pt is a 40yoCM with a PMH of HTN and alcohol dependence who presented to the ER due to weakness. He states that he has been an alcoholic for many years and drinks at least 1 liter of liquor per day. He decided that he wants to quit drinking and had his last drink yesterday morning aroudn 1100am. He then developed weakness and nausea. When asked when this started he states about 3 days ago. When I clarified if it started 3 days ago or when he quit drinking yesterday he said it was all the same time. I am unfortunately unsure when he actually quit drinking because of this. He reported some dark stools to the ER but denied this to me. He does complain of nausea and vomiting though. Mostly he is concerned about his weakness. Subjective/Events-last exam Pt reports doing ok today but still tired and thinks he needs to rest. No longer nauseated. Objective Exam Vital Signs Vital Signs Date Time Temp Pulse Resp B/P (MAP) Pulse Ox O2 Delivery O2 Flow Rate FiO2 04/04/20 15:00 36.5 89 16 117/76 (90) 97 Room Air Capillary Refill : Less Than 3 SecondsLess Than 3 Seconds General Appearance: No Apparent Distress, WD/WN Respiratory: Lungs Clear, No Accessory Muscle Use, No Respiratory Distress Cardiovascular: Regular Rate, Rhythm, No Murmur Neurologic/Psychiatric: Alert, Oriented x3 Results/Procedures Lab Laboratory Tests 04/04/20 04:50 Patient resulted labs reviewed. Imaging: Reviewed Imaging Report Assessment/Plan Assessment and Plan Assess & Plan/Chief Complaint Alcohol Withdrawal Alcohol dependence THC+ CIWA protocol in place, doing well horticultural services supervisor contacted Thiamine, folic acid, and MTV Continue IVF Hyponatremia- beer potomania Hypokalemia Hypomagnesemia Continue electrolyte replacement No MS changes, this is marcelo chronic reviewing records RN actually went down this AM, will add fluid restriction trend Anemia Hgb down to 7 this AM Surgery consulted, appreciate recs Discussed with Dr Cook Protonix added DVT ppx: SCDs only due to thrombocytopenia, anemia, and reported dark stools TIMOTHY CONTRERAS MD Apr 03, 2020 09:39
--- NOTE | 2020-04-03 10:14 | NUR ---
CM/SS visited with the patient for social service consult. The patient just finished with physical therapy and was lying in bed. He was pleasant and willing to discuss discharge planning. Plan: At time of discharge, the patient will return home. He is unsure if he would like to utilize alcohol treatment services at this time. Home: The patient lives at home with his mother. The patient's mother assist with basic needs and provides financial assistance. Substance use: The patient verbalized that he started drinking at the age of 19. Currently, he reports drinking 1 liter of Vodka every day. Inpatient rehab/outpatient services: The patient states that he has never been to a inpatient rehabilitation for substance use. He denies utilizing outpatient services. The patient reports that he has been assessed by [facility] in [place] but it was not by choice. CM/SS discussed and provided resources on [facility], [facility], and [facility]. The patient verbalized understanding. The patient reports he is familiar with a few others in [place] that his friends have been to. The patient states that he is "unsure" if he is interested at this time for services. Supports: The patient reports he has a good support system through his Mother, Grandmother, and Sister. He states they are sometimes "enablers". Mental health: Denies seeing a provider. Legal: The patient reports that he has had two DUI's in the past. He stated they are taken care of at this time. CM/SS will continue to follow.
--- NOTE | 2020-04-03 10:25 | Physical Therapy Daily Note ---
PT Daily Note-Current Subjective Patient initially stated, "The doctor told me I could sleep and rest all day and I didn't have to do anything." This PT had just consulted with physician prior to seeing patient and this was not said per physician. Patient reluctantly agrees to PT. Mental Status Patient Orientation: Person, Time, Situation Attachments: IV Transfers SCALE: Activities may be completed with or without assistive devices. 0-Mrpmkiwxif-betmpxm completes the activity by him/herself with no assistance from a helper. 5-Set-up or Clean-up Assistance-helper sets up or cleans up; patient completes activity. [place] assists only prior to or following the activity. 4-Supervision or Touching Assistance-helper provides verbal cues and/or touching/steadying and/or contact guard assistance as patient completes activity. Assistance may be provided throughout the activity or intermittently. 3-Partial/Moderate Assistance-helper does LESS THAN HALF the effort. [place] lifts, holds or supports trunk or limbs, but provides less than half the effort. 2-Substantial/Maximal Assistance-helper does MORE THAN HALF the effort. [place] lifts or holds trunk or limbs and provides more than half the effort. 2-Cazndsssm-efontg does ALL the effort. Patient does none of the effort to complete the activity. Or, the assistance of 2 or more helpers is required for the patient to complete the activity. If activity was not attempted, code reason: 7-Patient Refused. 9-Not Applicable-not attempted and the patient did not perform the activity before the current illness, exacerbation or injury. 10-Not Attempted due to Environmental Limitations-(lack of equipment, weather restraints, etc.). 88-Not Attempted due to Medical Conditions or Safety Concerns. Sit to Lying (QC): 6 Lying to Sitting/Side of Bed(Q: 6 Sit to Stand (QC): 4 CGA for safety Gait Training Does the Patient Walk?: Yes Distance: 500' Walk 10 feet (QC): 4 Walk 50 ft with 2 Turns(QC): 4 Walk 150 ft (QC): 4 Gait Assistive Device: FWW extended UE's with FWW use/slightly unsteady gait sequence with self correct Assessment Patient returned to bed with 4 rails up and bed alarm activated. Telesitter present. Patient tolerated treatment well. PT Ophthalmologist Retina Specialist Goals Ophthalmologist Retina Specialist Goals PT Ophthalmologist Retina Specialist Goals Time Frame: Apr 09, 2020 Roll Left & Right (QC): 6 Sit to Lying (QC): 6 Lying-Sitting on Side/Bed(QC): 6 Sit to Stand (QC): 4 Chair/Xax-bo-Svxom Xfer(QC): 4 Walk 10 feet (QC): 4 Walk 50ft with 2 Turns (QC): 4 PT Plan Treatment/Plan Treatment Plan: Continue Plan of Care Treatment Plan: Bed Mobility, Education, Functional Activity Desmond, Functional Strength, Gait, Safety, Therapeutic Exercise, Transfers Treatment Duration: Apr 09, 2020 Frequency: 6 times per week Estimated Hrs Per Day: .25 hour per day Patient and/or Family Agrees t: Yes Time/GCodes Time In: 932 Time Out: 944 Total Billed Treatment Time: 12 Total Billed Treatment 1 visit FA 12 min RUPA LU PT Apr 03, 2020 10:25
[2020-04-03 11:01] LABS: BUN/CREATININE RATIO 15; CALCIUM 8.3 MG/DL (8.5-10.1); CARBON DIOXIDE 35 MMOL/L (21-32); CHLORIDE 74 MMOL/L (98-107); CREATININE SERUM 0.79 MG/DL (0.60-1.30); GFR ESTIMATED > 60; GLUCOSE 117 MG/DL (70-105); POTASSIUM 2.8 MMOL/L (3.6-5.0)
[2020-04-03 11:03] LABS: SODIUM 121 MMOL/L (135-145)
--- NOTE | 2020-04-03 11:10 | NUR ---
Notified Dr. Dunn critical lab value of 121. Dr. Dunn stated we will recheck in AM.
[2020-04-03 11:49] VITALS: BP 121/68
--- NOTE | 2020-04-03 13:18 | Consultation - Surgery ---
CLARISSE BAKER,MED STUDENT 04/03/20 1318: History of Present Illness History of Present Illness Patient Consulted On(gordo/time) 04/03/20 13:10 Date Seen by Provider: Apr 03, 2020 Time Seen by Provider: 12:50 History of Present Illness Pt is a 40 year old male with PMH of ccirrhosis, HTN and alcohol dependence who was admitted for alcohol withdrawal, hyponatremia, hypokalemia, hypomagnesemia, anemia and thrombocytopenia. Surgery was consulted because of melena and drop in hemoglobin. The patient states that he had a large, black bowel movement today. He states that he has had this before, about 10-11 months ago, and an EGD was done at which showed "lesions and ulcers". He states he was taking his medications for a while but has not been taking them recently because he could not afford them. He reports that he has also been having indigestion and sharp upper abdominal pain that comes and goes, is worse with spicy foods and better with milk, pepto bismol and tums. He states he had bloody diarrhea about a month ago as well. He denies nausea and vomiting, but ED reports he was complaining of brown emesis when he presented. He states that he has never had a colonoscopy. Allergies and Home Medications Allergies Coded Allergies: No Known Drug Allergies (Unverified , 08/31/18) Home Medications Unable to Obtain Active Prescriptions or Reported Meds Past Kdtlisq-Wetnlz-Dadpvw Hx Patient Social History Number of Drinks Today: FF Drug of Choice: Marijuana Smoking Status: Current Everyday Smoker Type Used: Cigarettes 2nd Hand Smoke Exposure: Yes Recent Hopitalizations: No Alcohol Use?: Yes Substance type: Marijuana Have you traveled recently?: No Seasonal Allergies Seasonal Allergies: No Surgeries History of Surgeries: Yes Surgeries: Appendectomy, Eye Surgery Respiratory History of Respiratory Disorde: No Cardiovascular History of Cardiac Disorders: No Neurological History of Neurological Disord: No Genitourinary History of Genitourinary Disor: No Gastrointestinal History of Gastrointestinal Di: Yes Gastrointestinal Disorders: Cirrhosis Musculoskeletal History of Musculoskeletal Dis: No Endocrine History of Endocrine Disorders: No HEENT History of 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) HEENT Disorders: Eye Injury Loss of Vision: Left Cancer History of Cancer: No Psychosocial History of Psychiatric Problem: No Integumentary History of Skin or Integumenta: No Blood Transfusions History of Blood Disorders: No Family Medical History Significant Family History: Heart Disease (father, grandfather), CAD Under 55 Years Old (father) Review of Systems-General Constitutional: chills, diaphoresis, dizziness; No fever; weakness EENTM: No blurred vision, No double vision, No nose congestion, No throat pain Respiratory: No cough, No dyspnea on exertion, No short of breath Cardiovascular: No chest pain, No edema, No palpitations Gastrointestinal: abdominal pain (epigastric); No constipation, No diarrhea, No hematemesis; heartburn, melena; No nausea, No vomiting Genitourinary: No dysuria, No frequency; hematuria Musculoskeletal: No joint pain, No muscle pain; muscle weakness (generalized) Skin: No rash Psychiatric/Neurological: Anxiety; Denies Headache, Denies Numbness, Denies Tingling; Weakness Other Heme: reports easy bleeding and bruising Physical Exam-General Problems Physical Exam Vital Signs Vital Signs - First Documented 04/02/20 07:50 Temp 37.2 Pulse 129 Resp 18 B/P (MAP) 120/83 (95) Pulse Ox 100 O2 Delivery Room Air Capillary Refill : Less Than 3 SecondsLess Than 3 Seconds General Appearance: no apparent distress, other (unkept) Eyes: Right Eye PERRL, Right Eye EOMI; Left Eye Other (absent) HEENT: No scleral icterus (R), No scleral icterus (L) Neck: non-tender, supple; No lymphadenopathy (R), No lymphadenopathy (L) Respiratory: lungs clear, no respiratory distress, no accessory muscle use Cardiovascular: no murmur, tachycardia Peripheral Pulses: 2+ Dorsalis Pedis (R), 2+ Left Dors-Pedis (L), 2+ Radial Pulses (R), 2+ Radial Pulses (L) Gastrointestinal: normal bowel sounds, soft; No distended; tenderness (RUQ, with deep palpation), hepatomegaly Rectal: black stool Back: no vertebral tenderness Extremities: non-tender, no pedal edema, no calf tenderness Neurologic/Psychiatric: no motor/sensory deficits, alert, normal mood/affect, oriented x 3 Skin: warm/dry, ecchymosis (scattered) Lymphatic: no adenopathy (cervical, axillary, inguinal) Data Review Labs Laboratory Tests 04/02/20 14:30: Sodium Level 122*L, Potassium Level 2.5*L, Chloride Level 61L, Carbon Dioxide Level 40H, Anion Gap 21H, Blood Urea Nitrogen 19H, Creatinine 1.14, Estimat Glomerular Filtration Rate > 60, BUN/Creatinine Ratio 17, Glucose Level 193H, Calcium Level 8.6, Magnesium Level 1.3L 04/03/20 05:24: Sodium Level 120*L, Potassium Level 2.6L, Chloride Level 70L, Carbon Dioxide Level 38H, Anion Gap 12, Blood Urea Nitrogen 13, Creatinine 0.81, Estimat Glomerular Filtration Rate > 60, BUN/Creatinine Ratio 16, Glucose Level 93, Calcium Level 8.4L, Magnesium Level 1.7, White Blood Count 7.0, Red Blood Count 3.37L, Hemoglobin 7.1L, Hematocrit 23L, Mean Corpuscular Volume 67L, Mean Corpuscular Hemoglobin 21L, Mean Corpuscular Hemoglobin Concent 31L, Red Cell Distribution Width 21.4H, Platelet Count 46L, Mean Platelet Volume , Immature Granulocyte % (Auto) 1, Neutrophils (%) (Auto) 71, Lymphocytes (%) (Auto) 18, Monocytes (%) (Auto) 10, Eosinophils (%) (Auto) 0, Basophils (%) (Auto) 0, Neutrophils # (Auto) 4.9, Lymphocytes # (Auto) 1.3, Monocytes # (Auto) 0.7, Eosinophils # (Auto) 0.0, Basophils # (Auto) 0.0, Immature Granulocyte # (Auto) 0.0, Corrected Calcium 9.0, Total Bilirubin 1.7H, Aspartate Amino Transf (AST/SGOT) 155H, Alanine Aminotransferase (ALT/SGPT) 40, Alkaline Phosphatase 69, Total Protein 6.4, Albumin 3.3 04/03/20 10:30: Sodium Level 121*L, Potassium Level 2.8L, Chloride Level 74L, Carbon Dioxide Level 35H, Anion Gap 12, Blood Urea Nitrogen 12, Creatinine 0.79, Estimat Glomerular Filtration Rate > 60, BUN/Creatinine Ratio 15, Glucose Level 117H, Calcium Level 8.3L Assessment/Plan Assessment/Plan Assessment/Plan Anemia, rule out upper GI bleed- Hgb dropped from 9.1 to 7.1 this AM Alcohol withdrawal Thrombocytopenia, platelets 46 Hyponatremia, Na 121 Hypokalemia, K 2.8 Cirrhosis, pt reported Hematuria Continue Protonix 40 BID Plan for EGD tomorrow to look for source of bleeding May need colonoscopy as well at some point due to reported bloody BMs Fluid restriction, replace K trend Hgb, platelets Transfuse as needed Medical management per primary FAVIAN COOK DO 04/03/20 1820: History of Present Illness History of Present Illness Time Seen by Provider: 12:50 History of Present Illness I saw pt with my student Clarisse Baker [facility]; he did not appear to be in any distress. Stated he thought it was black BM's and previous scope showed "lesions and ulcers". Allergies and Home Medications Allergies Coded Allergies: No Known Drug Allergies (Unverified , 08/31/18) Home Medications Unable to Obtain Active Prescriptions or Reported Meds Patient Home Medication List Home Medication List Reviewed: Yes Past Geweqpt-Eavrch-Foubzr Hx Patient Social History Alcohol Use?: Yes Surgeries History of Surgeries: Yes Gastrointestinal History of Gastrointestinal Di: Yes Gastrointestinal Disorders: Cirrhosis Integumentary History of Skin or Integumenta: No Family Medical History Significant Family History: Heart Disease (father, grandfather), CAD Under 55 Years Old (father) Review of Systems-General Constitutional: chills, diaphoresis, dizziness; No fever; weakness EENTM: No blurred vision, No double vision, No nose congestion, No throat pain Respiratory: No cough, No dyspnea on exertion, No short of breath Cardiovascular: No chest pain, No edema, No palpitations Gastrointestinal: abdominal pain (epigastric); No constipation, No diarrhea, No hematemesis; heartburn, melena; No nausea; vomiting Genitourinary: No dysuria, No frequency; hematuria Musculoskeletal: No joint pain, No muscle pain; muscle weakness (generalized) Psychiatric/Neurological: Anxiety; Denies Headache, Denies Numbness, Denies Tingling; Weakness Physical Exam-General Problems Physical Exam General Appearance: no apparent distress, other (unkept) Eyes: Right Eye PERRL, Right Eye EOMI; Left Eye Other (absent) HEENT: No scleral icterus (R); other (mucous membranes moist) Neck: non-tender, supple Respiratory: lungs clear, normal breath sounds, no respiratory distress, no accessory muscle use Cardiovascular: no murmur, tachycardia Gastrointestinal: normal bowel sounds, soft; No distended; tenderness (RUQ, with deep palpation), hepatomegaly Rectal: deferred, black stool Back: no CVA tenderness, no vertebral tenderness Extremities: non-tender, no pedal edema, no calf tenderness Neurologic/Psychiatric: safety deposit boxes custodian II-XII nml as tested, no motor/sensory deficits, alert, normal mood/affect, oriented x 3 Skin: warm/dry, ecchymosis (scattered) Lymphatic: no adenopathy (cervical, axillary, inguinal) Assessment/Plan Assessment/Plan Assessment/Plan Anemia, rule out upper GI bleed- Hgb dropped from 9.1 to 7.1 this AM Alcohol withdrawal Thrombocytopenia, platelets 46 Hyponatremia, Na 121 Hypokalemia, K 2.8 Cirrhosis, pt reported Hematuria Continue Protonix 40 BID Plan for EGD tomorrow to look for source of bleeding May need colonoscopy as well at some point due to reported bloody BMs Fluid restriction, replace K trend Hgb, platelets Transfuse as needed Medical management per primary Supervisory-Addendum Brief Verification & Attestation Participated in pt care: history, MDM, physical Personally performed: exam, history, MDM Care discussed with: Medical Student Procedures: n/a Verification and Attestation of Medical Student E/M Service A medical student performed and documented this service in my presence. I reviewed and verified all information documented by the medical student and made modifications to such information, when appropriate. I personally performed the physical exam and medical decision making. Favian Cook, Apr 03, 2020,18:27 CLARISSE BAKER,MED STUDENT Apr 03, 2020 13:18 FAVIAN COOK DO Apr 03, 2020 18:20
--- NOTE | 2020-04-03 14:36 | Occupational Ther Daily Note ---
OT Current Status-Daily Note Subjective Pt reports no pain and agreeable to OT tx. ADL-Treatment Therapy Code Descriptions/Definitions Functional [place] Measure: 0=Not Assessed/NA 4=Minimal Assistance 1=Total Assistance 5=Supervision or Setup 2=Maximal Assistance 6=Modified [place] 3=Moderate Assistance 7=Complete IndependenceSCALE: Activities may be completed with or without assistive devices. 4-Fzqygeycmg-sbxcdez completes the activity by him/herself with no assistance from a helper. 5-Set-up or Clean-up Assistance-helper sets up or cleans up; patient completes activity. [place] assists only prior to or following the activity. 4-Supervision or Touching Assistance-helper provides verbal cues and/or touching/steadying and/or contact guard assistance as patient completes activity. Assistance may be provided throughout the activity or intermittently. 3-Partial/Moderate Assistance-helper does LESS THAN HALF the effort. [place] lifts, holds or supports trunk or limbs, but provides less than half the effort. 2-Substantial/Maximal Assistance-helper does MORE THAN HALF the effort. [place] lifts or holds trunk or limbs and provides more than half the effort. 3-Ziehpsgxn-zyiixq does ALL the effort. Patient does none of the effort to complete the activity. Or, the assistance of 2 or more helpers is required for the patient to complete the activity. If activity was not attempted, code reason: 7-Patient Refused. 9-Not Applicable-not attempted and the patient did not perform the activity before the current illness, exacerbation or injury. 10-Not Attempted due to Environmental Limitations-(lack of equipment, weather restraints, etc.). 88-Not Attempted due to Medical Conditions or Safety Concerns. Oral Hygiene (QC): 4 (SBA, pt completed all parts Ind, but needed a cue to rinse mouth.) Other Treatment Pt began tx laying in bed. Pt began brushing teeth at SBA and washed face with wet and dry towel at set up level. Pt completed hair brushing with a comb, set up. Pt complete bed mobility IND by pushing himself up in the bed only requiring one cue to begin the task. Pt finished tx laying supine in bed with call light in reach and all needs met. Education OT Patient Education: Correct positioning, Modified ADL techniques, Progress toward Goal/Update tx plan, Purpose of tx/functional activities Teaching Recipient: Patient Teaching Methods: Discussion Response to Teaching: Verbalize Understanding OT [facility] Goals Pipe Welder Goals Time Frame: Apr 16, 2020 Eating (QC): 6 Oral Hygiene (QC): 6 Toileting Hygiene (QC): 6 Shower/Bathe Self (QC): 4 Upper Body Dressing (QC): 6 Lower Body Dressing (QC): 6 On/Off Footwear (QC): 6 Additional Goals: 1-Demonstrate ADL Tasks, 2-Verbalize Understanding, 3- ImproveStrength/[place] 1=Demonstrate adherence to instructed precautions during ADL tasks. 2=Patient will verbalize/demonstrate understanding of assistive devices/modifications for ADL. 3=Patient will improve strength/tolerance for activity to enable patient to perform ADL's. OT Education/Plan Problem List/Assessment Assessment: Decreased UE Strength, Impaired I ADL's, Impaired Self-Care Skills, Visual-Perceptual Deficit Discharge Recommendations Plan/Recommendations: Continue POC Treatment Plan/Plan of Care Patient would benefit from OT for education, treatment and training to promote independence in ADL's, mobility, safety and/or upper extremity function for ADL's. Plan of Care: ADL Retraining, Functional Mobility, UE Funct Exercise/Act Treatment Duration: Apr 16, 2020 Frequency: 5 times per week Estimated Hrs Per Day: .25 hour per day Agreement: Yes Rehab Potential: Fair Time/GCodes Start Time: 13:34 Stop Time: 13:45 Total Time Billed (hr/min): 11 Billed Treatment Time 1, ADL (11') JANAY HENDERSON OT Apr 03, 2020 14:36
--- NOTE | 2020-04-03 15:12 | NUR ---
Attempted to contact and update patients mother at this time but phone has been disconnected.
[2020-04-03 16:02] VITALS: BP 119/61
[2020-04-03 20:59] VITALS: BP 121/69
--- NOTE | 2020-04-03 21:05 | NUR ---
called to pt room at this time by NOY Knight stating pt had pulled his IV out. Lt FA IV d/c at this time. IV fluids connected to existing LT AC site. will cont. to monitor.
[2020-04-04] VITALS (12 sets, daily range): BP systolic 102–138; BP diastolic 58–88
[2020-04-04] MEDS: D5 1/2 NS W/KCL 20 MEQ/L 1,000 ML IV SCH ×2 (04:33→11:47)
[2020-04-04 05:12] LABS: HEMATOCRIT 23 % (40-54); MEAN CORPUSCULAR HEMOGLOBIN 21 pg (25-34); MEAN CORPUSCULAR HGB CONC 30 g/dL (32-36); MEAN CORPUSCULAR VOLUME 70 fL (80-99); PLATELET COUNT 56 10^3/uL (130-400); WHITE BLOOD COUNT 4.2 10^3/uL (4.3-11.0)
[2020-04-04 05:18] LABS: CHLORIDE 89 MMOL/L (98-107); HEMOGLOBIN 6.8 g/dL (13.3-17.7); POTASSIUM 3.1 MMOL/L (3.6-5.0); SODIUM 128 MMOL/L (135-145)
[2020-04-04 05:20] LABS: CALCIUM 8.4 MG/DL (8.5-10.1); GLUCOSE 97 MG/DL (70-105)
[2020-04-04 05:21] LABS: CARBON DIOXIDE 29 MMOL/L (21-32)
[2020-04-04 05:24] LABS: CREATININE SERUM 0.68 MG/DL (0.60-1.30); GFR ESTIMATED > 60
[2020-04-04 05:25] LABS: BUN/CREATININE RATIO 15
--- NOTE | 2020-04-04 05:25 | NUR ---
Called Dr. Wahl with Critical Hgb of 6.8. New order for pt to be typed and screened, 2 Units of blood ordered, transfuse 1 unit, second unit on hold for surgeon to decide. Pt is scheduled for EGD this am with Dr. Cook.
[2020-04-04] MEDS ORDERED: NS IV 500 ML 500 ML IV SCH (05:45)
[2020-04-04] MEDS: FOLIC ACID 1 MG TAB PO SCH ×2 (06:28→06:41)
[2020-04-04] MEDS: MULTIVIT W/MINERALS TAB (THERAGRAN M) PO SCH ×2 (06:28→06:41)
[2020-04-04] MEDS: THIAMINE 100 MG (VITAMIN B-1) TAB PO SCH ×2 (06:28→06:41)
[2020-04-04] MEDS ORDERED: NS IV 500 ML 500 ML ONE (07:32)
--- NOTE | 2020-04-04 07:32 | Progress Note - Surgery ---
NELIA BAKER,MED STUDENT 04/04/20 0732: Subjective Date Seen by a Provider: Apr 04, 2020 Time Seen by a Provider: 06:43 Subjective/Events-last exam Pt seen and examined this morning. States he is feeling about the same as yesterday. Denies any dark or bloody BMs, nausea, vomiting or abd pain overnight. Still reports dizziness and weakness. Hgb was decreased to 6.8 this AM and he will be transfused 1 unit pRBCs. States he is hungry. Review of Systems General: Night Sweats, Fatigue, Appetite HEENT: No Head Aches, No Sore Throat Pulmonary: No Dyspnea, No Cough Cardiovascular: No: Chest Pain, Edema Gastrointestinal: No: Nausea, Vomiting, Abdominal Pain, Diarrhea Genitourinary: No Dysuria Neurological: Weakness, Other (Dizziness); No: Confusion Objective Exam Vital Signs Date Time Temp Pulse Resp B/P (MAP) Pulse Ox O2 Delivery O2 Flow Rate FiO2 04/04/20 04:19 37.1 89 20 138/77 (97) 95 Room Air 04/04/20 01:00 90 04/04/20 00:27 36.6 88 19 115/70 (85) 94 Room Air 04/03/20 20:59 36.2 95 18 121/69 (86) 95 Room Air 04/03/20 20:05 Room Air 04/03/20 19:00 106 04/03/20 16:02 37.0 105 20 119/61 (80) 99 Room Air 04/03/20 12:25 106 04/03/20 11:49 37.2 105 18 121/68 (85) 99 Room Air 04/03/20 09:00 Room Air 04/03/20 08:00 37.3 103 18 119/73 (88) 98 Room Air I & O 04/04/20 07:00 Intake Total 1200 ml Output Total 4825 ml Balance -3625 ml Capillary Refill : Less Than 3 SecondsLess Than 3 Seconds General Appearance: No Apparent Distress HEENT: Moist Mucous Membranes, Other (enucleated right eye) Respiratory: Lungs Clear, No Accessory Muscle Use, No Respiratory Distress Cardiovascular: Regular Rate, Rhythm, No Edema, No Murmur Peripheral Pulses: 2+ Radial Pulses (R), 2+ Radial Pulses (L) Gastrointestinal: normal bowel sounds, soft; No distended; tenderness (RUQ, with deep palpation), hepatomegaly Extremity: No Calf Tenderness, No Pedal Edema Neurologic/Psychiatric: Alert, Oriented x3, Normal Mood/Affect Skin: Normal Color, Warm/Dry Results Lab Laboratory Tests 04/03/20 10:30: Sodium Level 121*L, Potassium Level 2.8L, Chloride Level 74L, Carbon Dioxide Level 35H, Anion Gap 12, Blood Urea Nitrogen 12, Creatinine 0.79, Estimat Glomerular Filtration Rate > 60, BUN/Creatinine Ratio 15, Glucose Level 117H, Calcium Level 8.3L, Iron Level 20L, Total Iron Binding Capacity 285, Unsaturated Iron Binding Capacity 265, Transferrin % Saturation 7L, Ferritin 48.0 04/03/20 18:50: Coronavirus 2019 ([facility]) Negative 04/04/20 04:50: Sodium Level 128L, Potassium Level 3.1L, Chloride Level 89L, Carbon Dioxide Level 29, Anion Gap 10, Blood Urea Nitrogen 10, Creatinine 0.68, Estimat Glomerular Filtration Rate > 60, BUN/Creatinine Ratio 15, Glucose Level 97, Calcium Level 8.4L, White Blood Count 4.2L, Red Blood Count 3.24L, Hemoglobin 6.8*L, Hematocrit 23L, Mean Corpuscular Volume 70L, Mean Corpuscular Hemoglobin 21L, Mean Corpuscular Hemoglobin Concent 30L, Red Cell Distribution Width 22.4H, Platelet Count 56L, Mean Platelet Volume Assessment/Plan Assessment/Plan Assessment/Plan Anemia, rule out upper GI bleed- Hgb 6.8 this AM, will be transfused 1 unit pRBCs Alcohol withdrawal Thrombocytopenia, platelets improved to 56 this morning Hyponatremia, Na 128 Hypokalemia, K 3.1 Cirrhosis, pt reported Hematuria Continue Protonix 40 BID Plan for EGD today to look for source of bleeding May need colonoscopy as well at some point due to reported bloody BMs Fluid restriction, replace K trend Hgb, platelets Transfuse as needed Medical management per primary JAYDON COOK DO 04/04/20 1322: Subjective Time Seen by a Provider: 13:17 Subjective/Events-last exam Pt seen and examined, denies abdominal pain, no more melena and denies vomiting. Review of Systems General: Night Sweats, Fatigue HEENT: No Head Aches Pulmonary: No Dyspnea, No Cough Cardiovascular: No: Chest Pain Gastrointestinal: No: Nausea, Vomiting, Abdominal Pain Objective Exam General Appearance: No Apparent Distress HEENT: Moist Mucous Membranes Respiratory: Lungs Clear, Normal Breath Sounds, No Accessory Muscle Use, No Respiratory Distress Cardiovascular: Regular Rate, Rhythm, No Murmur Gastrointestinal: normal bowel sounds, soft; No distended; tenderness (RUQ, with deep palpation), hepatomegaly Assessment/Plan Assessment/Plan Assessment/Plan Anemia, rule out upper GI bleed- Hgb 6.8 this AM, will be transfused 1 unit pRBCs Alcohol withdrawal Thrombocytopenia, platelets improved to 56 this morning Hyponatremia, Na 128 Hypokalemia, K 3.1 Cirrhosis, pt reported Hematuria Continue Protonix 40 BID Plan for EGD today to look for source of bleeding May need colonoscopy as well at some point due to reported bloody BMs Fluid restriction, replace K trend Hgb, platelets Transfuse as needed Supervisory-Addendum Brief Verification & Attestation Participated in pt care: history, MDM, physical Personally performed: exam, history, MDM Care discussed with: Medical Student Procedures: n/a Verification and Attestation of Medical Student E/M Service A medical student performed and documented this service. I then reviewed and v erified all information documented by the medical student and made modifications to such information, when appropriate. I personally performed a physical exam, medical decision making and then discussed any differences between the notes and made revisions as necessary to create one note. Jaydon Cook , 04/04/20 , 13:22 NELIA BAKER,MED STUDENT Apr 04, 2020 07:32 JAYDON COOK DO Apr 04, 2020 13:22
[2020-04-04] MEDS: PANTOPRAZOLE 40 MG (PROTONIX) VIAL IV SCH ×2 (07:55→20:45)
[2020-04-04] MEDS: KCL 20 MEQ TAB (K-DUR) PO SCH ×2 (08:09→19:26)
[2020-04-04] MEDS: MAGNESIUM OXIDE (MAG-OX)400 MG TAB PO SCH ×2 (08:10→19:26)
--- NOTE | 2020-04-04 09:01 | Progress Note - Hospitalist ---
Subjective HPI/CC On Admission Date Seen by Provider: Apr 04, 2020 Time Seen by Provider: 08:53 Pt is a 40yoCM with a PMH of HTN and alcohol dependence who presented to the ER due to weakness. He states that he has been an alcoholic for many years and drinks at least 1 liter of liquor per day. He decided that he wants to quit drinking and had his last drink yesterday morning aroudn 1100am. He then developed weakness and nausea. When asked when this started he states about 3 days ago. When I clarified if it started 3 days ago or when he quit drinking yesterday he said it was all the same time. I am unfortunately unsure when he actually quit drinking because of this. He reported some dark stools to the ER but denied this to me. He does complain of nausea and vomiting though. Mostly he is concerned about his weakness. Subjective/Events-last exam Pt reports feeling better today. Plan is for EGD.today. Currently getting transfusion. Objective Exam Vital Signs Vital Signs Date Time Temp Pulse Resp B/P (MAP) Pulse Ox O2 Delivery O2 Flow Rate FiO2 04/04/20 08:33 36.0 86 16 114/75 (88) 99 Room Air Capillary Refill : Less Than 3 SecondsLess Than 3 Seconds General Appearance: No Apparent Distress, WD/WN Respiratory: Lungs Clear, No Accessory Muscle Use, No Respiratory Distress Cardiovascular: Regular Rate, Rhythm, No Murmur Gastrointestinal: Normal Bowel Sounds, Non Tender, Soft Results/Procedures Lab Laboratory Tests 04/03/20 10:30 04/04/20 04:50 Patient resulted labs reviewed. Imaging: Reviewed Imaging Report Assessment/Plan Assessment and Plan Assess & Plan/Chief Complaint Alcohol Withdrawal Alcohol dependence THC+ CIWA protocol in place, doing well technology services manager contacted Thiamine, folic acid, and MTV Continue IVF Hyponatremia- beer potomania Hypokalemia Hypomagnesemia Continue electrolyte replacement No MS changes, this is likely chronic reviewing records, baseline 130-134 NA went up today to 128, will slow fluids and continue to trend Anemia Thrombocytopenia Alcoholic liver disease Hgb 6.8, 1 unit pRBCs ordered Surgery consulted, appreciate recs EGD today Protonix DVT ppx: SCDs only due to thrombocytopenia, anemia, and reported dark stools TIMOTHY CONTRERAS MD Apr 04, 2020 09:01
--- NOTE | 2020-04-04 10:10 | NUR ---
Day Surg called and stated patient would only be receiving one unit of blood before surgery and then Dr. Cook would instruct on moving forward.
--- NOTE | 2020-04-04 11:26 | Physical Therapy Progress Note ---
Therapy Progress Note Patient receiving PRBC due to critical Hgb and to have EGD on this date. PT will resume in [facility] Jeffery PT Apr 04, 2020 11:26
--- NOTE | 2020-04-04 11:45 | Occupational Ther Daily Note ---
OT Current Status-Daily Note Subjective Pt stated no pain and agreeable to OT tx. ADL-Treatment Therapy Code Descriptions/Definitions Functional [place] Measure: 0=Not Assessed/NA 4=Minimal Assistance 1=Total Assistance 5=Supervision or Setup 2=Maximal Assistance 6=Modified [place] 3=Moderate Assistance 7=Complete IndependenceSCALE: Activities may be completed with or without assistive devices. 8-Hlgxxfctyq-vcukodz completes the activity by him/herself with no assistance from a helper. 5-Set-up or Clean-up Assistance-helper sets up or cleans up; patient completes activity. [place] assists only prior to or following the activity. 4-Supervision or Touching Assistance-helper provides verbal cues and/or touching/steadying and/or contact guard assistance as patient completes activity. Assistance may be provided throughout the activity or intermittently. 3-Partial/Moderate Assistance-helper does LESS THAN HALF the effort. [place] lifts, holds or supports trunk or limbs, but provides less than half the effort. 2-Substantial/Maximal Assistance-helper does MORE THAN HALF the effort. [place] lifts or holds trunk or limbs and provides more than half the effort. 9-Ypcocsksz-tqbzcr does ALL the effort. Patient does none of the effort to complete the activity. Or, the assistance of 2 or more helpers is required for the patient to complete the activity. If activity was not attempted, code reason: 7-Patient Refused. 9-Not Applicable-not attempted and the patient did not perform the activity before the current illness, exacerbation or injury. 10-Not Attempted due to Environmental Limitations-(lack of equipment, weather restraints, etc.). 88-Not Attempted due to Medical Conditions or Safety Concerns. Oral Hygiene (QC): 5 (Set up assist) Other Treatment Pt began tx supine in bed. Pt completed 3 arm exercises in order to increase BUE strength and activity tolerance, with no resistance and 10x each of the following, elbow flexion, external rotation, and shoulder flexion. Pt stated that he would like to brush teeth, so pt performed oral care at set up with cues to not swallow any water to just rinse mouth out with the water due to procedure scheduled later today. Pt washed face and armpits, set up assist. Pt scooted self up in bed Ind. Post tx, pt supine in bed, call light in reach, bed alarm on and all needs met. Education OT Patient Education: Correct positioning, Exercise program, Modified ADL techniques, Progress toward Goal/Update tx plan, Purpose of tx/functional activities, Reviewed precautions, Safety issues Teaching Recipient: Patient Teaching Methods: Demonstration, Discussion Response to Teaching: Verbalize Understanding OT Laceworker Goals Laceworker Goals Time Frame: Apr 16, 2020 Eating (QC): 6 Oral Hygiene (QC): 6 Toileting Hygiene (QC): 6 Shower/Bathe Self (QC): 4 Upper Body Dressing (QC): 6 Lower Body Dressing (QC): 6 On/Off Footwear (QC): 6 Additional Goals: 1-Demonstrate ADL Tasks, 2-Verbalize Understanding, 3- ImproveStrength/[place] 1=Demonstrate adherence to instructed precautions during ADL tasks. 2=Patient will verbalize/demonstrate understanding of assistive devices/modifications for ADL. 3=Patient will improve strength/tolerance for activity to enable patient to perform ADL's. OT Education/Plan Problem List/Assessment Assessment: Decreased Activ Tolerance, Decreased UE Strength, Impaired I ADL's, Impaired Self-Care Skills Discharge Recommendations Plan/Recommendations: Continue POC Treatment Plan/Plan of Care Patient would benefit from OT for education, treatment and training to promote independence in ADL's, mobility, safety and/or upper extremity function for ADL's. Plan of Care: ADL Retraining, Functional Mobility, UE Funct Exercise/Act Treatment Duration: Apr 16, 2020 Frequency: 5 times per week Estimated Hrs Per Day: .25 hour per day Agreement: Yes Rehab Potential: Fair Time/GCodes Start Time: 11:08 Stop Time: 11:18 Total Time Billed (hr/min): 10 Billed Treatment Time 1, ADL JANAY HENDERSON OT Apr 04, 2020 11:45
--- NOTE | 2020-04-04 11:57 | NUR ---
CM/SS follow up. CM/SS visited with the patient. He was lying in bed resting. He woke easily and was willing to talk with this sw. CM/SS briefly recapped the conversation yesterday to discuss if the patient is wanting to seek treatment. The patient reports that he is still unsure if he would like to get treatment at this time. He voiced that he may change his mind later after his mind is more clear. CM/SS offered to make an appointment through [facility] for an assessment. The patient declined at this time. CM/SS will continue to follow.
[2020-04-04] MEDS ORDERED: PROPOFOL INJECTION 50 ML IV ONE (13:30)
[2020-04-04] MEDS ORDERED: MIDAZOLAM 2 MG/2 ML (VERSED) VIAL ONE (13:31)
[2020-04-04] MEDS ORDERED: LACTATED RINGERS 1,000 ML IV ONE ×2 (14:14→14:45)
[2020-04-04] MEDS ORDERED: HURRICAINE EXT TUBE (BENZOCAINE) XX ONE (14:45)
--- NOTE | 2020-04-04 14:57 | Anesthesia-General Post-Op ---
MAC Patient Condition Mental Status/LOC: Same as Preop Cardiovascular: Satisfactory Nausea/Vomiting: Absent Respiratory: Satisfactory Pain: Controlled Complications: Absent Post Op Complications Complications None Follow Up Care/Instructions Patient Instructions None needed. Anesthesiology Discharge Order Discharge Order Patient is doing well, no complaints, stable vital signs, no apparent adverse anesthesia problems. No complications reported per nursing. AL STOUT CRNA Apr 04, 2020 14:57
--- NOTE | 2020-04-04 15:30 | NUR ---
Patient arrived back from EGD at this time. Patient alert and oriented with no complaints. Requesting food and water. Will approve with Dr. Cook and assess patients ability to swallow prior to allowing food.
--- NOTE | 2020-04-04 15:32 | Progress Note-Post Operative ---
Post-Operative Progess Note Surgeon (s)/Reception Manager (s) Surgeon FAVIAN LEONARDO DO Reception Manager: none Pre-Operative Diagnosis Anemia, Melena Post-Operative Diagnosis Ulcerative esophagitis Hiatal Hernia Gastritis Procedure & Operative Findings Date of Procedure 04/04/20 Procedure Performed/Findings EGD with bx Anesthesia Type IV sedation by NEUROSURGICAL NURSE PRACTITIONER Estimated Blood Loss Estimated blood loss (mL): scant Specimens/Packing Specimens Removed body of stomach bx bx of mass just below GE jxn FAVIAN LEONARDO DO Apr 04, 2020 15:32
--- NOTE | 2020-04-04 15:45 | NUR ---
Spoke with Dr. Cook at this time to see if he would like me to administer remaining unit of RBCs. Dr. Cook requests since the patient is not actively bleeding to hold until tomorrow to see if his hgb drops again.
--- NOTE | 2020-04-04 16:03 | NUR ---
Contacted Dr. Dunn to ensure patient was still on a fluid restriction. Dr. Dunn requests the restriction be loosened to 1600ml per 24hr. Alterations made at this time.
[2020-04-04] MEDS: MELATONIN 3 MG TABLET PO PRN (20:50)
--- NOTE | 2020-04-04 23:34 | OPERATIVE REPORT ---
DATE OF SERVICE: PREOPERATIVE DIAGNOSES: Anemia and melena. POSTOPERATIVE DIAGNOSES: Ulcerative esophagitis, hiatal hernia and gastritis. PROCEDURE: EGD with biopsy. SURGEON: Jaydon Cook DO VETERINARY NURSE: None. ANESTHESIA: IV sedation by the JUVENILE CORRECTIONS OFFICER. SPECIMEN: Biopsy from the body of stomach, biopsy from mass just below the GE junction. BLOOD LOSS: Scant. FLUIDS: Per anesthesia. POSTOPERATIVE CONDITION: Stable. INDICATION FOR PROCEDURE: The patient is a 40-year-old male who has been having some dark black bowel movements and he is anemic, needed a workup. FINDINGS: The patient had some ulcerative esophagitis. He had a small hiatal hernia and what looked like a mass in the hiatal hernia and some gastritis. PROCEDURE NOTE: After informed consent was obtained, the patient was brought to the endoscopy suite, placed in bed in left lateral decubitus position. He was administered IV sedation by the JUVENILE CORRECTIONS OFFICER who then monitored his vitals the entire time, heart rate, blood pressure and pulse ox and the scope was inserted down the mouth into the esophagus. At the distal portion of the esophagus, there were lot of ulcerations, pictures were taken. Pushed pass this into the stomach towards the antrum, antrum looked okay, pushed into the duodenum. Duodenum looked fine. Pulled back, did have some gastritis. Elected to do a biopsy of the body of stomach, retroflexed the scope, saw small hiatal hernia. Pulled the scope into the hiatal hernia and saw a mass just below the GE junction just below the Z line, did a biopsy of this. There is some scant bleeding, suctioned all the air out of stomach and then elected not do biopsies of the esophagus, took pictures of these ulcerated areas. Removed the scope. The patient tolerated the procedure, recovered in the endoscopy suite. Job ID: [id number] DocumentID: [id number] Dictated Date: 04/04/2020 18:30:30 Cooker Chip Date: 04/04/2020 23:33:38 Dictated By: JAYDON COOK DO
[2020-04-05] MEDS: D5 1/2 NS W/KCL 20 MEQ/L 1,000 ML IV SCH ×2 (02:24→08:00)
[2020-04-05 04:47] VITALS: BP 110/72
[2020-04-05 06:33] LABS: HEMOGLOBIN 7.8 g/dL (13.3-17.7); WHITE BLOOD COUNT 4.9 10^3/uL (4.3-11.0)
[2020-04-05 06:37] LABS: CHLORIDE 99 MMOL/L (98-107)
[2020-04-05 06:38] LABS: POTASSIUM 3.8 MMOL/L (3.6-5.0); SODIUM 129 MMOL/L (135-145)
[2020-04-05 06:39] LABS: CALCIUM 8.4 MG/DL (8.5-10.1); GLUCOSE 96 MG/DL (70-105)
[2020-04-05 06:41] LABS: CARBON DIOXIDE 22 MMOL/L (21-32)
[2020-04-05] MEDS: THIAMINE 100 MG (VITAMIN B-1) TAB PO SCH (06:42)
[2020-04-05 06:43] LABS: CREATININE SERUM 0.65 MG/DL (0.60-1.30); GFR ESTIMATED > 60
[2020-04-05] MEDS: FOLIC ACID 1 MG TAB PO SCH (06:43)
[2020-04-05] MEDS: MULTIVIT W/MINERALS TAB (THERAGRAN M) PO SCH (06:43)
[2020-04-05 06:44] LABS: BUN/CREATININE RATIO 14
[2020-04-05 08:00] VITALS: BP 107/64
[2020-04-05] MEDS: PANTOPRAZOLE 40 MG (PROTONIX) VIAL IV SCH ×2 (08:00→20:27)
[2020-04-05] MEDS: MAGNESIUM OXIDE (MAG-OX)400 MG TAB PO SCH (08:00)
[2020-04-05] MEDS: KCL 20 MEQ TAB (K-DUR) PO SCH ×2 (08:03→18:05)
--- NOTE | 2020-04-05 08:28 | Progress Note - Surgery ---
SAVANAH VALENZUELA MED STUDENT 04/05/20 0828: Subjective Date Seen by a Provider: Apr 05, 2020 Time Seen by a Provider: 08:22 Subjective/Events-last exam Pt asleep upon entering, lying in bed. Pt states that he is doing okay. Pt notes BM color returning to normal. Pt denies N/V, but confirms weakness and URQ tenderness to palpation. Pt notes walking around fine but with walker for stability. Hgb improved to 7.8. Review of Systems General: No Chills, No Night Sweats HEENT: No Head Aches, No Dysphasia Pulmonary: No Dyspnea; Cough (chronic) Cardiovascular: No: Chest Pain, Palpitations Gastrointestinal: No: Nausea, Vomiting Genitourinary: No Dysuria, No Retention Musculoskeletal: No: other, neck pain, shoulder pain, arm pain, back pain, hand pain, leg pain, foot pain Neurological: Weakness; No: Numbness Objective Exam Vital Signs Date Time Temp Pulse Resp B/P (MAP) Pulse Ox O2 Delivery O2 Flow Rate FiO2 04/05/20 07:00 104 04/05/20 04:47 36.9 84 18 110/72 (85) 98 Room Air 04/05/20 01:00 100 04/04/20 23:33 37.4 94 20 122/79 (93) 99 Room Air 04/04/20 21:34 Room Air 04/04/20 20:13 100 04/04/20 19:21 37.3 108 18 112/58 (76) 98 Room Air 04/04/20 15:00 36.5 89 16 117/76 (90) 97 Room Air 04/04/20 14:35 80 18 98 Room Air 04/04/20 12:07 37.2 90 16 123/88 (100) 99 Room Air 04/04/20 11:41 36.3 84 16 112/72 99 Room Air 04/04/20 09:30 36.5 89 15 102/63 99 Room Air 04/04/20 08:59 Room Air 04/04/20 08:33 36.0 86 16 114/75 (88) 99 Room Air I & O 04/05/20 07:00 Intake Total 1000 ml Output Total 3570 ml Balance -2570 ml Capillary Refill : Less Than 3 SecondsLess Than 3 Seconds General Appearance: No Apparent Distress, Chronically ill HEENT: Moist Mucous Membranes, Other (enucleated right eye) Neck: Normal Inspection, Supple Respiratory: Lungs Clear, No Accessory Muscle Use, No Respiratory Distress Cardiovascular: Regular Rate, Rhythm, No Murmur Peripheral Pulses: 2+ Radial Pulses (R), 2+ Radial Pulses (L) Gastrointestinal: normal bowel sounds, soft; No distended; tenderness (RUQ, with deep palpation), hepatomegaly Extremity: Normal Capillary Refill, No Calf Tenderness, No Pedal Edema Neurologic/Psychiatric: Alert, Oriented x3, Normal Mood/Affect Skin: Normal Color, Warm/Dry Results Lab Laboratory Tests 04/04/20 13:04: Lab Scanned Report Transfusion Reaction Form 04/05/20 05:50: White Blood Count 4.9, Red Blood Count 3.55L, Hemoglobin 7.8L, Hematocrit 26L, Mean Corpuscular Volume 72L, Mean Corpuscular Hemoglobin 22L, Mean Corpuscular Hemoglobin Concent 30L, Red Cell Distribution Width 23.1H, Platelet Count 79L, Mean Platelet Volume 11.0, Sodium Level 129L, Potassium Level 3.8, Chloride Level 99, Carbon Dioxide Level 22, Anion Gap 8, Blood Urea Nitrogen 9, Creatinine 0.65, Estimat Glomerular Filtration Rate > 60, BUN/Creatinine Ratio 14, Glucose Level 96, Calcium Level 8.4L Microbiology 04/03/20 MRSA Screen - Final, Complete MRSA not isolated Assessment/Plan Assessment/Plan Assessment/Plan Anemia, rule out upper GI bleed- Hgb 7.8 this AM, transfused 1 unit pRBCs (04/04) Alcohol withdrawal Thrombocytopenia, platelets improved to 56 this morning Hyponatremia, Na 129 Hypokalemia improved, K 3.8 Cirrhosis, pt reported Hematuria Continue Protonix 40 BID EGD showed ulcerative esophagitis, hiatal hernia, and gastritis May need colonoscopy as well at some point due to reported bloody BMs Fluid restriction, replace K as needed trend Hgb, platelets Transfuse as needed JOANNA CENTENO DO 04/05/20 1656: Subjective Subjective/Events-last exam Patient stated he is doing okay. Feeling better. Slight epigastric abdominal pain. Tolerating diet. Denies any nausea vomiting fever sweats chills shortness of breath or chest pain at this time. Patient hemoglobin up to 7.8. No new complaints. Objective Exam General Appearance: No Apparent Distress, WD/WN HEENT: Moist Mucous Membranes, Other (enucleated left eye) Neck: Normal Inspection, Non Tender, Supple Respiratory: Chest Non Tender, No Accessory Muscle Use, No Respiratory Distress Cardiovascular: Regular Rate, Rhythm, No JVD Gastrointestinal: soft; No distended; tenderness (Minimal in epigastric) Extremity: Non Tender, No Calf Tenderness Neurologic/Psychiatric: Alert, Oriented x3, Normal Mood/Affect Skin: Normal Color, Warm/Dry Lymphatic: No Adenopathy Assessment/Plan Assessment/Plan Assessment/Plan Anemia Hgb 7.8 this AM, transfused 1 unit pRBCs (04/04) Alcohol withdrawal Thrombocytopenia, platelets improved to 56 this morning Hyponatremia, Na 129 Hypokalemia improved, K 3.8 Cirrhosis, pt reported Hematuria Continue Protonix 40 BID EGD showed ulcerative esophagitis, hiatal hernia, and gastritis May need colonoscopy as well at some point due to reported bloody BMs inpatient versus outpatient Fluid restriction, replace electrolytes as needed trend Hgb, platelets Transfuse as needed On ulcer bland diet Supervisory-Addendum Brief Verification & Attestation Participated in pt care: history, MDM, physical Personally performed: exam, history, MDM, supervision of care Care discussed with: Medical Student Procedures: n/a Results interpretation: Verified all documentation Verification and Attestation of Medical Student E/M Service A medical student performed and documented this service in my presence. I reviewed and verified all information documented by the medical student and made modifications to such information, when appropriate. I personally performed the physical exam and medical decision making. Joanna Centeno, Apr 05, 2020,16:56 SAVANAH VALENZUELA MED STUDENT Apr 05, 2020 08:28 JOANNA CENTENO DO Apr 05, 2020 16:56
--- NOTE | 2020-04-05 09:33 | Progress Note - Hospitalist ---
Subjective HPI/CC On Admission Date Seen by Provider: Apr 05, 2020 Time Seen by Provider: 09:12 Pt is a 40yoCM with a PMH of HTN and alcohol dependence who presented to the ER due to weakness. He states that he has been an alcoholic for many years and drinks at least 1 liter of liquor per day. He decided that he wants to quit drinking and had his last drink yesterday morning aroudn 1100am. He then developed weakness and nausea. When asked when this started he states about 3 days ago. When I clarified if it started 3 days ago or when he quit drinking yesterday he said it was all the same time. I am unfortunately unsure when he actually quit drinking because of this. He reported some dark stools to the ER but denied this to me. He does complain of nausea and vomiting though. Mostly he is concerned about his weakness. Subjective/Events-last exam Pt reports feeling better. Up and ambulating with more balance today. No other complaints. Objective Exam Vital Signs Vital Signs Date Time Temp Pulse Resp B/P (MAP) Pulse Ox O2 Delivery O2 Flow Rate FiO2 04/05/20 08:00 37.0 94 20 107/64 (78) 99 Room Air Capillary Refill : Less Than 3 SecondsLess Than 3 Seconds General Appearance: No Apparent Distress, WD/WN Respiratory: Lungs Clear, No Respiratory Distress Cardiovascular: Regular Rate, Rhythm, No Murmur Gastrointestinal: Normal Bowel Sounds, Soft Neurologic/Psychiatric: Alert, Oriented x3 Results/Procedures Lab Laboratory Tests 04/05/20 05:50 Patient resulted labs reviewed. Imaging: Reviewed Imaging Report Assessment/Plan Assessment and Plan Assess & Plan/Chief Complaint Alcohol Withdrawal Alcohol dependence THC+ CIWA protocol in place, doing well, has only needed 1 dose of ativan loan services professional contacted Thiamine, folic acid, and MTV Hyponatremia- beer potomania Hypokalemia Hypomagnesemia Continue electrolyte replacement No MS changes, this is likely chronic reviewing records, baseline 130-134 NA 129 this AM DC IVF for now, continue fluid restriction Anemia Thrombocytopenia Alcoholic liver disease Hgb improved appropriately with transfusion Surgery consulted, appreciate recs EGD showed gastritis, ulcerative esophagitis, hiatal hernia Protonix DVT ppx: SCDs only due to thrombocytopenia, anemia, and reported dark stools Diagnosis/Problems Diagnosis/Problems (1) Hypokalemia Status: Acute (2) Dehydration Status: Acute (3) Acute kidney injury Status: Resolved Resolution Date/Time: 12/21/19 @ 12:40 (4) Alcoholism /alcohol abuse Status: Acute (5) Anemia, chronic disease Status: Acute (6) Alcohol withdrawal Status: Acute Qualifiers: Complication of substance-induced condition: uncomplicated Qualified Codes: F10.230 - Alcohol dependence with withdrawal, uncomplicated (7) Thrombocytopenia Status: Acute (8) Hyponatremia Status: Acute (9) DVT prophylaxis Status: Acute (10) Cirrhosis Status: Chronic (11) Nausea & vomiting Status: Acute Qualifiers: Vomiting type: bilious vomiting Qualified Codes: R11.14 - Bilious vomiting (12) Hypomagnesemia Status: Acute (13) Hypophosphatemia Status: Acute TIMOTHY CONTRERAS MD Apr 05, 2020 09:33
--- NOTE | 2020-04-05 11:02 | Physical Therapy Progress Note ---
Therapy Progress Note Patient refused therapy stating that he got some bad news yesterday and doesn't feel like it. GELY PURI PT Apr 05, 2020 11:01
[2020-04-05 12:20] VITALS: BP 110/68
[2020-04-05 15:58] VITALS: BP 123/68
[2020-04-05 19:21] VITALS: BP 121/65
[2020-04-05] MEDS: MELATONIN 3 MG TABLET PO PRN (20:30)
[2020-04-06 00:19] VITALS: BP 130/82
[2020-04-06 04:08] VITALS: BP 125/59
[2020-04-06 05:45] LABS: HEMOGLOBIN 8.3 g/dL (13.3-17.7)
[2020-04-06 05:47] LABS: HEMATOCRIT 28 % (40-54); MEAN CORPUSCULAR HEMOGLOBIN 22 pg (25-34); MEAN CORPUSCULAR HGB CONC 30 g/dL (32-36); MEAN CORPUSCULAR VOLUME 74 fL (80-99); PLATELET COUNT 56 10^3/uL (130-400); WHITE BLOOD COUNT 4.2 10^3/uL (4.3-11.0)
[2020-04-06] MEDS: MULTIVIT W/MINERALS TAB (THERAGRAN M) PO SCH (05:48)
[2020-04-06] MEDS: FOLIC ACID 1 MG TAB PO SCH (05:48)
[2020-04-06 06:11] LABS: CHLORIDE 100 MMOL/L (98-107); POTASSIUM 4.5 MMOL/L (3.6-5.0); SODIUM 127 MMOL/L (135-145)
[2020-04-06 06:13] LABS: CALCIUM 8.4 MG/DL (8.5-10.1); GLUCOSE 100 MG/DL (70-105)
[2020-04-06 06:15] LABS: CARBON DIOXIDE 19 MMOL/L (21-32)
[2020-04-06 06:17] LABS: CREATININE SERUM 0.66 MG/DL (0.60-1.30); GFR ESTIMATED > 60
[2020-04-06 06:18] LABS: BUN/CREATININE RATIO 14
[2020-04-06 08:00] VITALS: BP 108/66
--- NOTE | 2020-04-06 09:22 | Progress Note - Hospitalist ---
Subjective HPI/CC On Admission Date Seen by Provider: Apr 06, 2020 Time Seen by Provider: 09:17 Pt is a 40yoCM with a PMH of HTN and alcohol dependence who presented to the ER due to weakness. He states that he has been an alcoholic for many years and drinks at least 1 liter of liquor per day. He decided that he wants to quit drinking and had his last drink yesterday morning aroudn 1100am. He then developed weakness and nausea. When asked when this started he states about 3 days ago. When I clarified if it started 3 days ago or when he quit drinking yesterday he said it was all the same time. I am unfortunately unsure when he actually quit drinking because of this. He reported some dark stools to the ER but denied this to me. He does complain of nausea and vomiting though. Mostly he is concerned about his weakness. Subjective/Events-last exam Pt reports feeling better this morning. Complains of being thirsty. Discussed with him the importance of following fluid restriction and how sodium dropped t his morning without IVF. Objective Exam Vital Signs Vital Signs Date Time Temp Pulse Resp B/P (MAP) Pulse Ox O2 Delivery O2 Flow Rate FiO2 04/06/20 08:00 36.7 85 22 108/66 (80) 100 Room Air Capillary Refill : Less Than 3 SecondsLess Than 3 Seconds General Appearance: No Apparent Distress, Chronically ill Respiratory: Lungs Clear, No Accessory Muscle Use, No Respiratory Distress Cardiovascular: Regular Rate, Rhythm, No Murmur Gastrointestinal: Normal Bowel Sounds, Non Tender, Soft Neurologic/Psychiatric: Alert, Oriented x3 Results/Procedures Lab Laboratory Tests 04/06/20 05:16 Patient resulted labs reviewed. Imaging: Reviewed Imaging Report Assessment/Plan Assessment and Plan Assess & Plan/Chief Complaint Alcohol Withdrawal Alcohol dependence THC+ CIWA protocol in place, doing well, has only needed 1 dose of ativan social services coordinator contacted Thiamine, folic acid, and MTV He reports he wants to quit and plans to reach out to an addiction treatment physician in [facility] Hyponatremia- beer potomania Hypokalemia Hypomagnesemia Continue electrolyte replacement No MS changes, this is likely chronic reviewing records, baseline 130-134 Na 127 this AM, discussed compliance needed with fluid restriction Resume IVF Anemia Thrombocytopenia Alcoholic liver disease Hgb improved again today Surgery consulted, appreciate recs EGD showed gastritis, ulcerative esophagitis, hiatal hernia Protonix DVT ppx: SCDs only due to thrombocytopenia, anemia, and reported dark stools Diagnosis/Problems Diagnosis/Problems (1) Hypokalemia Status: Acute (2) Dehydration Status: Acute (3) Acute kidney injury Status: Resolved Resolution Date/Time: 12/21/19 @ 12:40 (4) Alcoholism /alcohol abuse Status: Acute (5) Anemia, chronic disease Status: Acute (6) Alcohol withdrawal Status: Acute Qualifiers: Complication of substance-induced condition: uncomplicated Qualified Codes: F10.230 - Alcohol dependence with withdrawal, uncomplicated (7) Thrombocytopenia Status: Acute (8) Hyponatremia Status: Acute (9) DVT prophylaxis Status: Acute (10) Cirrhosis Status: Chronic (11) Nausea & vomiting Status: Acute Qualifiers: Vomiting type: bilious vomiting Qualified Codes: R11.14 - Bilious vomiting (12) Hypomagnesemia Status: Acute (13) Hypophosphatemia Status: Acute TIMOTHY CONTRERAS MD Apr 06, 2020 09:21
[2020-04-06] MEDS: KCL 20 MEQ TAB (K-DUR) PO SCH ×2 (09:31→18:25)
[2020-04-06] MEDS: NS IV 1000 ML 1,000 ML IV SCH ×2 (09:31→21:58)
[2020-04-06] MEDS: PANTOPRAZOLE 40 MG (PROTONIX) VIAL IV SCH ×2 (09:31→20:04)
[2020-04-06 12:00] VITALS: BP 117/75
--- NOTE | 2020-04-06 13:48 | Progress Note - Surgery ---
SAVANAH VALENZUELA MED STUDENT 04/06/20 1348: Subjective Date Seen by a Provider: Apr 06, 2020 Time Seen by a Provider: 13:45 Subjective/Events-last exam Pt awake and lying in bed upon entry. Pt denies N/V, abdominal pain, SOB, or chills. Pt does note feeling sweaty. Hgb improving to 8.3. Objective Exam Vital Signs Date Time Temp Pulse Resp B/P (MAP) Pulse Ox O2 Delivery O2 Flow Rate FiO2 04/06/20 12:59 86 04/06/20 12:00 36.8 93 20 117/75 (89) 100 Room Air 04/06/20 09:00 Room Air 04/06/20 08:00 36.7 85 22 108/66 (80) 100 Room Air 04/06/20 07:00 110 04/06/20 04:08 36.2 89 18 125/59 (81) 100 Room Air 04/06/20 01:00 80 04/06/20 00:19 36.1 88 18 130/82 (98) 100 Room Air 04/05/20 21:00 Room Air 04/05/20 19:21 37.0 84 18 121/65 (83) 99 Room Air 04/05/20 19:00 91 04/05/20 15:58 36.1 85 18 123/68 (86) 99 Room Air I & O 04/06/20 07:00 Intake Total 1860 ml Output Total 2625 ml Balance -765 ml Capillary Refill : Less Than 3 SecondsLess Than 3 Seconds General Appearance: No Apparent Distress, Chronically ill HEENT: Moist Mucous Membranes, Other (enucleated left eye) Neck: Normal Inspection, Non Tender, Supple Respiratory: Lungs Clear, No Accessory Muscle Use, No Respiratory Distress Cardiovascular: Regular Rate, Rhythm, No Murmur Peripheral Pulses: 2+ Radial Pulses (R), 2+ Radial Pulses (L) Gastrointestinal: soft; No distended; tenderness (Minimal in epigastric) Extremity: Non Tender, No Calf Tenderness Neurologic/Psychiatric: Alert, Oriented x3 Skin: Normal Color, Warm/Dry Lymphatic: No Adenopathy Results Lab Laboratory Tests 04/06/20 05:16: White Blood Count 4.2L, Red Blood Count 3.74L, Hemoglobin 8.3L, Hematocrit 28L, Mean Corpuscular Volume 74L, Mean Corpuscular Hemoglobin 22L, Mean Corpuscular Hemoglobin Concent 30L, Red Cell Distribution Width 24.0H, Platelet Count 56L, Mean Platelet Volume , Sodium Level 127L, Potassium Level 4.5, Chloride Level 100, Carbon Dioxide Level 19L, Anion Gap 8, Blood Urea Nitrogen 9, Creatinine 0.66, Estimat Glomerular Filtration Rate > 60, BUN/Creatinine Ratio 14, Glucose Level 100, Calcium Level 8.4L Microbiology 04/03/20 MRSA Screen - Final, Complete MRSA not isolated Assessment/Plan Assessment/Plan Assessment/Plan Anemia improving Hgb 8.3 this AM, transfused 1 unit pRBCs (04/04) Alcohol withdrawal Thrombocytopenia, platelets improved to 56 this morning Hyponatremia, Na 127 Hypokalemia improved, K 4.5 Cirrhosis, pt reported Hematuria Continue Protonix 40 BID EGD showed ulcerative esophagitis, hiatal hernia, and gastritis May need colonoscopy as well at some point due to reported bloody BMs inpatient versus outpatient Fluid restriction, replace electrolytes as needed trend Hgb, platelets Transfuse as needed On ulcer bland diet JOANNA CENTENO DO 04/06/20 1351: Subjective Subjective/Events-last exam Patient states abdominal pain improved. No nausea or emesis. Hgb up to 8.3. No new complaints. Denies fever chills shortness of breath or chest pain. Objective Exam General Appearance: No Apparent Distress, Chronically ill HEENT: Moist Mucous Membranes, Other (enucleated left eye) Neck: Normal Inspection, Non Tender, Supple Respiratory: Chest Non Tender, No Accessory Muscle Use, No Respiratory Distress Cardiovascular: Regular Rate, Rhythm, No JVD Gastrointestinal: non tender, soft; No distended, No tenderness Extremity: Non Tender, No Calf Tenderness Neurologic/Psychiatric: Alert, Oriented x3 Skin: Normal Color, Warm/Dry Lymphatic: No Adenopathy Assessment/Plan Assessment/Plan Assessment/Plan Anemia improving Hgb 8.3 this AM, transfused 1 unit pRBCs (04/04) Alcohol withdrawal Thrombocytopenia, platelets improved to 56 this morning Hyponatremia, Na 127 Hypokalemia improved, K 4.5 Cirrhosis, pt reported Hematuria Continue Protonix 40 BID EGD showed ulcerative esophagitis, hiatal hernia, and gastritis May need colonoscopy as well at some point due to reported bloody BMs inpatient versus outpatient Fluid restriction, replace electrolytes as needed trend Hgb, platelets Transfuse as needed On ulcer bland diet Supervisory-Addendum Brief Verification & Attestation Participated in pt care: history, MDM, physical Personally performed: exam, history, MDM, supervision of care Care discussed with: Medical Student Procedures: n/a Results interpretation: Verified all documentation Verification and Attestation of Medical Student E/M Service A medical student performed and documented this service in my presence. I reviewed and verified all information documented by the medical student and made modifications to such information, when appropriate. I personally performed the physical exam and medical decision making. Joanna Centeno, Apr 06, 2020,13:51 SAVANAH VALENZUELA MED STUDENT Apr 06, 2020 13:48 JOANNA CENTENO DO Apr 06, 2020 13:51
[2020-04-06 15:56] VITALS: BP 114/76
[2020-04-06] MEDS: MELATONIN 3 MG TABLET PO PRN (20:04)
[2020-04-06 20:13] VITALS: BP 112/72
[2020-04-07] VITALS: BP 119/76
[2020-04-07 04:00] VITALS: BP 121/81
[2020-04-07] MEDS: MULTIVIT W/MINERALS TAB (THERAGRAN M) PO SCH (06:08)
[2020-04-07] MEDS: FOLIC ACID 1 MG TAB PO SCH (06:08)
[2020-04-07 06:40] LABS: HEMOGLOBIN 7.9 g/dL (13.3-17.7)
[2020-04-07 06:42] LABS: MEAN PLATELET VOLUME 10.6 fL (9.0-12.2)
[2020-04-07 06:53] LABS: CHLORIDE 104 MMOL/L (98-107); SODIUM 131 MMOL/L (135-145)
[2020-04-07 06:54] LABS: CALCIUM 8.1 MG/DL (8.5-10.1)
[2020-04-07 06:55] LABS: GLUCOSE 91 MG/DL (70-105)
[2020-04-07 06:56] LABS: CARBON DIOXIDE 19 MMOL/L (21-32)
[2020-04-07 06:58] LABS: GFR ESTIMATED > 60
--- NOTE | 2020-04-07 06:58 | Progress Note - Surgery ---
SAVANAH VALENZUELA MED STUDENT 04/07/20 0658: Subjective Date Seen by a Provider: Apr 07, 2020 Time Seen by a Provider: 06:58 Subjective/Events-last exam Pt asleep upon entry. Pt states he is doing well. No abdominal pain, SOB, or chest pain. Pt notes decreased RUQ/ epigastric pain from yesterday. Pt notes BM and increased stability with ambulation. Pt expresses desire to be discharged. Review of Systems General: No Chills, No Fatigue HEENT: No Head Aches, No Dysphasia Pulmonary: No Dyspnea, No Cough Cardiovascular: No: Chest Pain, Palpitations Gastrointestinal: No: Nausea, Vomiting, Abdominal Pain, Constipation Genitourinary: No Dysuria, No Retention Musculoskeletal: No: back pain, leg pain Neurological: No: Weakness, Numbness Objective Exam Vital Signs Date Time Temp Pulse Resp B/P (MAP) Pulse Ox O2 Delivery O2 Flow Rate FiO2 04/07/20 04:00 37.0 78 17 121/81 (94) 100 Room Air 04/07/20 01:00 97 04/07/20 00:00 36.9 89 15 119/76 (90) 100 Room Air 04/06/20 20:13 36.6 96 18 112/72 (85) 100 Room Air 04/06/20 20:05 Room Air 04/06/20 19:00 88 04/06/20 15:56 36.6 75 18 114/76 (89) 100 Room Air 04/06/20 12:59 86 04/06/20 12:00 36.8 93 20 117/75 (89) 100 Room Air 04/06/20 09:00 Room Air 04/06/20 08:00 36.7 85 22 108/66 (80) 100 Room Air 04/06/20 07:00 110 I & O 04/07/20 07:00 Intake Total 1400 ml Output Total 2675 ml Balance -1275 ml Capillary Refill : Less Than 3 SecondsLess Than 3 Seconds General Appearance: No Apparent Distress, Chronically ill HEENT: PERRL/EOMI, Moist Mucous Membranes, Other (enucleated left eye) Neck: Normal Inspection, Non Tender, Supple Respiratory: Chest Non Tender, Lungs Clear, Normal Breath Sounds, No Accessory Muscle Use, No Respiratory Distress Cardiovascular: Regular Rate, Rhythm, No Edema Peripheral Pulses: 2+ Radial Pulses (R), 2+ Radial Pulses (L) Gastrointestinal: non tender, soft; No distended, No tenderness Extremity: Non Tender, No Calf Tenderness Neurologic/Psychiatric: Alert, Oriented x3, No Motor/Sensory Deficits, Normal Mood/Affect Skin: Normal Color, Warm/Dry Lymphatic: No Adenopathy Results Lab Laboratory Tests 04/07/20 05:52: White Blood Count 4.0L, Red Blood Count 3.54L, Hemoglobin 7.9L, Hematocrit 26L, Mean Corpuscular Volume 74L, Mean Corpuscular Hemoglobin 22L, Mean Corpuscular Hemoglobin Concent 30L, Red Cell Distribution Width 24.4H, Platelet Count 124L, Mean Platelet Volume 10.6, Sodium Level 131L, Potassium Level 4.0, Chloride Level 104, Glucose Level 91, Calcium Level 8.1L Microbiology 04/03/20 MRSA Screen - Final, Complete MRSA not isolated Assessment/Plan Assessment/Plan Assessment/Plan Anemia improving Hgb 8.3 this AM, transfused 1 unit pRBCs (04/04) Alcohol withdrawal Thrombocytopenia, platelets 56 this morning Hyponatremia, Na 127 Hypokalemia improved, K 4.5 Cirrhosis, pt reported Hematuria Continue Protonix 40 BID EGD showed ulcerative esophagitis, hiatal hernia, and gastritis May need colonoscopy as well at some point due to reported bloody BMs inpatient versus outpatient Fluid restriction, replace electrolytes as needed trend Hgb, platelets Transfuse as needed On ulcer bland diet FAVIAN LEONARDO DO 04/07/20 1223: Supervisory-Addendum Brief Verification & Attestation Participated in pt care: other Personally performed: other Care discussed with: Medical Student Procedures: n/a Pt was discharged before I could see him. SAVANAH VALENZUELA MED STUDENT Apr 07, 2020 06:58 FAVIAN LEONARDO DO Apr 07, 2020 12:23
[2020-04-07 06:59] LABS: BUN/CREATININE RATIO 13
[2020-04-07 08:00] VITALS: BP 124/76
[2020-04-07] MEDS: KCL 20 MEQ TAB (K-DUR) PO SCH (09:03)
[2020-04-07] MEDS: PANTOPRAZOLE 40 MG (PROTONIX) VIAL IV SCH (09:03)
--- NOTE | 2020-04-07 09:53 | Physical Therapy Progress Note ---
Therapy Progress Note Patient adamantly refused PT stating, "I can walk all over the place ask anyone." This PT did ask and all staff denies patient is ambulating. PT returned to room to discuss staff report and he states, "You all are liars and I'm going to go home." This PT attempted to educate patient on importance of ensuring he is safe by participating with therapy. However, patient is adamant he is going home and he is not going to participate with therapy. SW notified. 1 ref/DC from services ([id number]) RUPA LU PT Apr 07, 2020 09:53
[2020-04-07] MEDS ORDERED: PANT40TA52 PO (09:54)
[2020-04-07] MEDS ORDERED: FERR-84 PO (09:56)
--- NOTE | 2020-04-07 10:21 | NUR ---
RX AND INST REVIEWED WITH PT. PT REQUESTED TO MAKE OWN F/U APPTS. CALLING FOR RIDE.
--- NOTE | 2020-04-07 10:37 | NUR ---
DC'D PER WC WITH STAFF.
--- NOTE | 2020-04-07 13:47 | NUR ---
CM/SS finalized discharge. Plan: The patient will discharge today to home self care. The patient will be transported via taxi paid for by his Grandmother. The patient reports that he is feeling much better today and is ready to discharge home. CM/SS visited with him regarding treatment plans. He states that at this time he is wanting to go through [facility] to see Herminia (counselor). He states his assessment is still in the 6 month time frame and is still good but he just needs an appointment. CM/SS offered to make the patient an appointment. He declined at this time and states he has stuff he needs to get done first but plans to call tomorrow. No further needs at this time.
--- NOTE | 2020-04-07 20:25 | Discharge Summary ---
Discharge Summary Hospital Course Was the Problem List Reviewed?: Yes Problems/Dx: (1) Alcohol withdrawal Status: Acute Qualifiers: Qualified Codes: F10.230 - Alcohol dependence with withdrawal, uncomplicated (2) Anemia, chronic disease Status: Acute (3) Hypokalemia Status: Acute (4) Dehydration Status: Acute (5) Acute kidney injury Status: Resolved (6) Alcoholism /alcohol abuse Status: Acute (7) Thrombocytopenia Status: Acute (8) Hyponatremia Status: Acute (9) Nausea & vomiting Status: Acute Qualifiers: Qualified Codes: R11.14 - Bilious vomiting (10) Hypomagnesemia Status: Acute (11) Hypophosphatemia Status: Acute Hospital Course Date of Admission: Apr 02, 2020 at 11:40 Admission Diagnosis : Alcohol withdrawal Family Physician/Provider: JoyaLocal Physician Date of Discharge: 04/07/20 Discharge Diagnosis: Alcohol withdrawal, iron deficiency anemia, alcohol induced gastritis/esophagitis Hospital Course: Morales Velasquez is a 40 year old male with alcohol dependence who presented with alcohol withdrawal. He was treated on CIWA protocol and had an uneventful withdrawal. His course was complicated by electrolyte abnormalities which were monitored and replaced as needed. His course was also complicated by anemia. Surgery was consulted and performed an EGD which revealed gastritis and esophagitis. He was started on a PPI and iron supplement. He was encouraged to discontinue alcohol use. Social work was consulted and provided him with available resources for alcohol cessation. He did not have a primary care provider and requested to get set up with Dr. Alvarez in [place]. Labs and Pending Lab Test: Laboratory Tests 04/07/20 05:52: White Blood Count 4.0L, Red Blood Count 3.54L, Hemoglobin 7.9L, Hematocrit 26L, Mean Corpuscular Volume 74L, Mean Corpuscular Hemoglobin 22L, Mean Corpuscular Hemoglobin Concent 30L, Red Cell Distribution Width 24.4H, Platelet Count 124L, Mean Platelet Volume 10.6, Sodium Level 131L, Potassium Level 4.0, Chloride Level 104, Carbon Dioxide Level 19L, Anion Gap 8, Blood Urea Nitrogen 8, Creatinine 0.60, Estimat Glomerular Filtration Rate > 60, BUN/Creatinine Ratio 13, Glucose Level 91, Calcium Level 8.1L Microbiology 04/03/20 MRSA Screen - Final, Complete MRSA not isolated Home Meds Active Iron (Ferrous Sulfate) 325 Mg Tablet 325 Mg PO DAILY 30 Days Pantoprazole Sodium 40 Mg Tablet.dr 40 Mg PO BID 60 Days Assessment/Pt Instructions Take medications as prescribed. Discontinue alcohol use. Establish care with a primary care physician. Discharge Planning: <30 minutes discharge planning Discharge Instructions Discharge Diet: No Restrictions Activity as Tolerated: Yes Discharge Physical Examination Vital Signs Vital Signs Date Time Temp Pulse Resp B/P (MAP) Pulse Ox O2 Delivery O2 Flow Rate FiO2 04/07/20 09:00 Room Air 04/07/20 08:00 36.5 91 21 124/76 (92) 100 General Appearance: No Apparent Distress, WD/WN Respiratory: Lungs Clear, Normal Breath Sounds, No Respiratory Distress Cardiovascular: Regular Rate, Rhythm, No Edema, No Murmur Gastrointestinal: Normal Bowel Sounds, Non Tender, Soft Extremity: Normal Inspection, Non Tender, No Pedal Edema Skin: Normal Color, Warm/Dry Neurologic/Psychiatric: Alert, Oriented x3, No Motor/Sensory Deficits, Normal Mood/Affect Allergies: Coded Allergies: No Known Drug Allergies (Unverified , 08/31/18) Copy Copies To 1: MARICARMEN ALVAREZ MD Discharge Summary Date of Admission Apr 02, 2020 at 11:40 Date of Discharge Apr 07, 2020 at 10:35 Discharge Date: Apr 07, 2020 Discharge Time: 10:35 Admission Diagnosis Alcohol Withdrawal Discharge Diagnosis (1) Alcohol withdrawal Status: Acute Qualifiers: Qualified Codes: F10.230 - Alcohol dependence with withdrawal, uncomplicated (2) Anemia, chronic disease Status: Acute (3) Hypokalemia Status: Acute (4) Dehydration Status: Acute (5) Acute kidney injury Status: Resolved (6) Alcoholism /alcohol abuse Status: Acute (7) Thrombocytopenia Status: Acute (8) Hyponatremia Status: Acute (9) DVT prophylaxis Status: Acute (10) Nausea & vomiting Status: Acute Qualifiers: Qualified Codes: R11.14 - Bilious vomiting (11) Hypomagnesemia Status: Acute (12) Hypophosphatemia Status: Acute AVILA CALHOUN MD Apr 07, 2020 20:22
== END 2020-04-07 10:35 | disposition home or self-care (01) | DRG 896 ==
LOC: EDUNIT# 07:56 → ER FS 07:57 → 4TH 11:40
PROVIDERS: ADMIT Family Medicine; ATTEND Family Medicine
PROC: 0DB68ZX Excision of Stomach, Via Natural or Artificial Opening Endoscopic, Diagnostic (ICD-10-PCS; 2020-04-04)
PROC: 0DB48ZX Excision of Esophagogastric Junction, Via Natural or Artificial Opening Endoscopic, Diagnostic (ICD-10-PCS; principal; 2020-04-04 14:13)
DX: F10.239 Alcohol dependence with withdrawal, unspecified (principal); K22.11 Ulcer of esophagus with bleeding; K29.21 Alcoholic gastritis with bleeding; E87.1 Hypo-osmolality and hyponatremia; F10.229 Alcohol dependence with intoxication, unspecified; F12.90 Cannabis use, unspecified, uncomplicated; Y90.5 Blood alcohol level of 100-119 mg/100 ml; E86.0 Dehydration; E87.6 Hypokalemia; D69.6 Thrombocytopenia, unspecified; E83.42 Hypomagnesemia; K70.30 Alcoholic cirrhosis of liver without ascites; D63.8 Anemia in other chronic diseases classified elsewhere; I10 Essential (primary) hypertension; F17.210 Nicotine dependence, cigarettes, uncomplicated; D50.9 Iron deficiency anemia, unspecified; K44.9 Diaphragmatic hernia without obstruction or gangrene; R31.9 Hematuria, unspecified; Z90.49 Acquired absence of other specified parts of digestive tract
CPT/HCPCS: 36415; 80048; 80053; 80306; 80320; 80329; 81000; 82274; 82728; 83540; 83690; 83735; 83880; 84484; 85025; 85027; 85610; 85730; 86850; 86900; 86901; 86920; 87081; 87635; 93005; 93041

== ENCOUNTER 2020-11-28 01:57 | Emergency (ER) | payer OTHER ==
[~2020-11-28 01:57] MED LIST changes: +FERR-84 PO; +PANT40TA52 PO
--- NOTE | 2020-11-28 02:01 | ED General ---
General Stated Complaint: MEDICAL CLEARANCE Source of Information: Patient, Police Exam Limitations: No Limitations History of Present Illness Date Seen by Provider: Nov 28, 2020 Time Seen by Provider: 02:00 Initial Comments 40-year-old male brought in by law enforcement in custody for medical clearance for incarceration. He is awake and alert, ambulatory and handcuffed with blood on his hands. States that he cut his hands on broken glass. No other injury or complaint. Allergies and Home Medications Patient Home Medication List Home Medication List Reviewed: Yes Review of Systems Review of Systems Constitutional: No fever, No malaise EENTM: no symptoms reported Respiratory: no symptoms reported Cardiovascular: no symptoms reported Gastrointestinal: no symptoms reported Musculoskeletal: see HPI; No joint swelling, No muscle pain, No neck pain; other (cuts to left hand palm) Skin: see HPI Psychiatric/Neurological: No Symptoms Reported; Denies Numbness, Denies Paresthesia, Denies Weakness Past Tijpmko-Vacmcy-Xeuivy Hx Patient Social History Tobacco Use?: Yes Alcohol Use?: Yes Physical Exam Vital Signs Capillary Refill : Height, Weight, BMI Height: '" Weight: lbs. oz. kg; BMI Method: General Appearance: No Apparent Distress, Other (intoxicated) HEENT: PERRL/EOMI, Normal ENT Inspection Respiratory: Chest Non Tender, Lungs Clear Cardiovascular: Regular Rate, Rhythm, No Edema Back: Normal Inspection, No CVA Tenderness Extremity: Normal Capillary Refill, Normal Range of Motion, Non Tender Neurologic/Psychiatric: Alert, No Motor/Sensory Deficits Skin: Normal Color, Warm/Dry, Other (few small superficial lacerations palmar surface left hand- no need for repair) Progress/Results/Core Measures Suspected Sepsis SIRS Temperature: Pulse: Respiratory Rate: Blood Pressure / Mean: Results/Orders Vital Signs/I&O Capillary Refill : Departure Impression Primary Impression: Medical clearance for incarceration Additional Impression: Superficial laceration of hand Qualified Codes: S61.412A - Laceration without foreign body of left hand, initial encounter Disposition: [address]/[employer] [employer] Condition: Stable Departure-Patient Inst. Decision time for Depature: 02:01 Patient Instructions: Wound Care (DC) Add. Discharge Instructions: Medically cleared for incarceration KENNY SOUZA DO Nov 28, 2020 02:01
--- OUTSIDE RECORDS SUMMARY | 2020-11-28 02:07 | XMS REPORT | Clinical Summary ---
Author Author [facility] Organization [facility] Address Unknown Phone Unavailable Care Team Providers Care Distribution Center Supervisor Name Role Phone No Pcp, Na PCP Unavailable Source Comments Some departments are not documenting in the electronic medical record. If you d o not see the information that you expected, contact Release of Information in [facility] [employer] Information Management department at [phone] for further assistan ce in locating additional records.[facility] Allergies No Known Active Allergies Medications End Date Status Medication Sig Dispensed Refills Start Date Active folic acid (FOLVITE) 1 mg Take one 30 tablet 1 tablet tablet by 0 mouth daily. Active nadoloL (CORGARD) 20 mg Take one 30 tablet 1 tablet tablet by 0 mouth daily. Active pantoprazole DR Take one 30 tablet 1 (PROTONIX) 40 mg tablet tablet by 0 mouth daily. Active thiamine (VITAMIN B-1) Take one 30 tablet 1 100 mg tablet tablet by 0 mouth daily. Active Problems Problem Noted Date Electrolyte disturbance 09/19/2019 Alcoholic cirrhosis of liver without ascites 020 GI bleed 09/18/2019 Severe malnutrition 09/18/2019 KARI (acute kidney injury) 09/18/2019 Acute blood loss anemia 09/18/2019 Bacterial keratitis 09/04/2018 Alcohol dependence with uncomplicated withdrawal 03/2018 Essential hypertension 09/04/2018 Corneal ulcer 09/03/2018 Surgical History Surgery Date Site/Laterality Comments UPPER GASTROINTESTINAL 09/19/2019 N/A EGD per formed by Garima Mcginnis MD ENDOSCOPY at [facility] ENDO UPPER GASTROINTESTINAL 09/20/2019 N/A ESOPHAG OGASTRODUODENOSCOPY WITH BAND LIGATION ENDOSCOPY ESOPHAGEAL/ GASTRIC VARICES - FLEXIBLE performed by Garima Mcginnis MD at [facility] ENDO Medical History Medical History Date Comments Alcohol dependency (HCC) Tobacco abuse Social History Date Tobacco Use Types Packs/Day Years Used Current Every Day Smoker Smokeless Tobacco: Never Used Sex Assigned at Date Recorded Not on file Last Filed Vital Signs Reading Time Taken Comments Vital Sign 116/60 09/22/2019 3:00 PM CDT Blood Pressure 70 09/22/2019 3:00 PM CDT Pulse 36.4 C (97.5 F) 09/22/2019 3:00 PM CDT Temperature - - Respiratory Rate 100% 09/22/2019 3:00 PM CDT Oxygen Saturation - - Inhaled Oxygen Concentration 77.4 kg (170 lb 9.6 oz) 09/22/2019 5:53 AM CDT Weight 182.9 cm (6') 09/20/2019 11:00 AM CDT Height 23.14 09/20/2019 11:00 AM CDT Body Mass Index Plan of Treatment Health Maintenance Due Date Last Done Comments HIV SCREENING 1997 DTAP/TDAP VACCINES (1 - 02/26/2000 Tdap) PHYSICAL (COMPREHENSIVE) 02/26/2000 EXAM INFLUENZA VACCINE 10/05/2020 HEPATITIS C SCREENING Completed 09/18/2019, 09/18/2019 Goals Goal Patient Associated Recent Progress Patient-Stat Aut hor Goal Type Problems ed? Smoking Cessation Lifestyle No Fior Haji RN Results Not on filefrom Last 3 Months Advance Directives Patient Protocol Officer Explanation Type Date Recorded Advance 09/03/2018 3:54 PM Directive/DPOA Date Inactivated Comments Code Status Date Activated 09/22/2019 6:49 PM Full Code 09/18/2019 2:15 AM Provider has discussed Code Status No, discussion no t w/Patient or Family? necessary based on Dx 09/05/2018 4:37 PM Full Code 09/03/2018 9:52 PM Provider has discussed Code Status Yes w/Patient or Family?
[2020-11-28 02:16] VITALS: BP 149/103
[2020-11-28] MEDS ORDERED: THIA100T80 (11:14)
[2020-11-28] MEDS ORDERED: FOLI1TAB33 (11:14)
== END 2020-11-28 02:15 ==
LOC: EDUNIT# 01:57 → ER FS 02:04
DX: S61.412A Laceration without foreign body of left hand, initial encounter (principal); Z72.0 Tobacco use; W25.XXXA Contact with sharp glass, initial encounter
CPT/HCPCS: 99283

== ENCOUNTER 2021-02-16 15:48 | Inpatient (IN) | payer SELFPAY ==
[~2021-02-16] VITALS: Ht 182 cm; Wt 90.4 kg
[~2021-02-16 15:48] MED LIST changes: +FOLI1TAB33; +THIA100T80
[2021-02-16] MEDS ORDERED: NS IV 1000 ML 1,000 ML IV SCH (16:00)
[2021-02-16] MEDS ORDERED: LORazepam INJ 2 MG/ML (ATIVAN) VIAL IVP STA ×5 (16:00→22:30)
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
[2021-02-16] MEDS ORDERED: PANTOPRAZOLE 40 MG (PROTONIX) VIAL IV STA (16:04)
[2021-02-16] MEDS ORDERED: ONDANSETRON 4 MG/2 ML (SDV) Z0FRAN IVP STA (16:04)
[2021-02-16 16:14] LABS: WHITE BLOOD COUNT 19.7 10^3/uL (4.3-11.0)
[2021-02-16 16:15] LABS: BASOPHILS % (AUTO) 0 % (0-10); EOSINOPHILS % (AUTO) 0 % (0-10); HEMATOCRIT 44 % (40-54); HEMOGLOBIN 14.4 g/dL (13.3-17.7); LYMPHOCYTES % (AUTO) 6 % (12-44); MEAN CORPUSCULAR HEMOGLOBIN 25 pg (25-34); MEAN CORPUSCULAR HGB CONC 33 g/dL (32-36); MEAN CORPUSCULAR VOLUME 76 fL (80-99); MEAN PLATELET VOLUME 9.3 fL (9.0-12.2); MONOCYTES % (AUTO) 16 % (0-12); NEUTROPHILS % (AUTO) 77 % (42-75); PLATELET COUNT 271 10^3/uL (130-400)
[2021-02-16 16:16] LABS: LYMPHOCYTES # (AUTO) 1.2 X 10^3 (1.0-4.0); MONOCYTES # (AUTO) 3.2 X 10^3 (0.0-1.0); NEUTROPHILS # (AUTO) 15.2 X 10^3 (1.8-7.8)
[2021-02-16 16:34] LABS: BUN/CREATININE RATIO 8; CALCIUM 11.6 MG/DL (8.5-10.1); CARBON DIOXIDE 40 MMOL/L (21-32); CHLORIDE 61 MMOL/L (98-107); CREATININE SERUM 2.38 MG/DL (0.60-1.30); GFR ESTIMATED 31; GLUCOSE 184 MG/DL (70-105); POTASSIUM 2.6 MMOL/L (3.6-5.0); SODIUM 130 MMOL/L (135-145)
[2021-02-16 16:35] LABS: ACETAMINOPHEN < 10 UG/ML (10-30); ALANINE AMINOTRANSFERASE 63 U/L (0-55); ALKALINE PHOSPHATASE 89 U/L (40-136); BILIRUBIN,TOTAL 1.6 MG/DL (0.1-1.0); SALICYLATE < 0.3 MG/DL (5.0-20.0); TOTAL PROTEIN 10.2 GM/DL (6.4-8.2)
[2021-02-16 16:37] LABS: BAND NEUTROPHILS 3 %; BASOPHILS % (MANUAL) 0 %; EOSINOPHILS % (MANUAL) 0 %; LYMPHOCYTES % (MANUAL) 4 %; MONOCYTES % (MANUAL) 12 %; NEUTROPHILS % (MANUAL) 81 %
[2021-02-16] MEDS ORDERED: KCL 20 MEQ TAB (K-DUR) PO STA (17:06)
[2021-02-16] MEDS ORDERED: NS IV 1000 ML 1,000 ML IV STA (17:06)
[2021-02-16] MEDS ORDERED: POTASSIUM CL 10MEQ/50ML IVPB 50 ML IV STA ×2 (17:06→20:28)
[2021-02-16] MEDS ORDERED: MAGNESIUM 1 GM/100 ML IVPB 100 ML IV STA (17:06)
[2021-02-16 17:25] LABS: BILIRUBIN,URINE NEGATIVE (NEGATIVE); CLARITY,URINE CLEAR; COLOR,URINE YELLOW; GLUCOSE, URINE (UA) NEGATIVE (NEGATIVE); KETONES,URINE NEGATIVE (NEGATIVE); LEUKOCYTE ESTERASE ,URINE NEGATIVE (NEGATIVE); NITRITE,URINE NEGATIVE (NEGATIVE); PH,URINE >=9.0 (5-9); PROTEIN,URINE 2+ (NEGATIVE)
--- NOTE | 2021-02-16 17:34 | Diagnostic Imaging Report ---
INDICATION: 40-year-old male with cough, elevated white count. COMPARISONS: 12/19/2019 FINDINGS: Single view of the chest shows normal heart, pleura, and diaphragms. There is some background chronic parenchymal changes. There is some minimal peribronchial cuffing centrally suggesting an element of bronchitis. No consolidations are seen. There is no effusion or pneumothorax. Soft tissues and visualized bony thorax are grossly normal. IMPRESSION: Some chronic parenchymal changes. There is some minimal peribronchial cuffing suggesting an element of mild bronchitis but no acute consolidations. Dictated by: Dictated on workstation # [id number]
[2021-02-16 17:37] LABS: AMPHETAMINE SCREEN, URINE NEGATIVE (NEGATIVE); BARBITURATE SCREEN URINE NEGATIVE (NEGATIVE); BENZODIAZEPINES SCREEN URINE POSITIVE (NEGATIVE); CANNABINOID SCREEN, URINE POSITIVE (NEGATIVE); COCAINE SCREEN URINE NEGATIVE (NEGATIVE); METHADONE STAT NEGATIVE (NEGATIVE); METHAMPHETAMINE SCREEN URINE S NEGATIVE (NEGATIVE); OPIATE SCREEN URINE NEGATIVE (NEGATIVE); OXYCODONE STAT NEGATIVE (NEGATIVE); PROPOXYPHENE STAT NEGATIVE (NEGATIVE); TRICYCLIC ANTIDEPRESSANTS SCRE NEGATIVE (NEGATIVE)
[2021-02-16 17:47] LABS: BACTERIA,URINE NEGATIVE /HPF; RBC,URINE 0-2 /HPF
[2021-02-16] MEDS ORDERED: LACTATED RINGERS 1,000 ML IV STA ×2 (17:58→19:13)
[2021-02-16 19:41] LABS: POTASSIUM 2.8 MMOL/L (3.6-5.0)
[2021-02-16 19:42] LABS: ALBUMIN 4.1 GM/DL (3.2-4.5); BILIRUBIN,TOTAL 1.2 MG/DL (0.1-1.0); CALCIUM 9.5 MG/DL (8.5-10.1); CREATININE SERUM 1.73 MG/DL (0.60-1.30); TOTAL PROTEIN 8.1 GM/DL (6.4-8.2)
[2021-02-16 20:49] LABS: INR 1.5 (0.8-1.4); PROTHROMBIN TIME PATIENT 18.7 SEC (12.2-14.7)
[2021-02-17] VITALS (9 sets, daily range): BP systolic 109–133; BP diastolic 74–99
[2021-02-17] MEDS ORDERED: LORazepam INJ 2 MG/ML (ATIVAN) VIAL IVP STA ×3 (01:19→04:49)
[2021-02-17] MEDS ORDERED: FOLIC ACID 1 MG TAB PO STA (04:49)
[2021-02-17] MEDS ORDERED: LACTATED RINGERS 1,000 ML IV STA (04:49)
[2021-02-17] MEDS ORDERED: POTASSIUM CL 10MEQ/50ML IVPB 50 ML IV STA (04:54)
[2021-02-17 05:42] LABS: WHITE BLOOD COUNT 12.4 10^3/uL (4.3-11.0)
[2021-02-17 05:43] LABS: HEMATOCRIT 36 % (40-54); HEMOGLOBIN 11.8 g/dL (13.3-17.7); MEAN CORPUSCULAR HEMOGLOBIN 25 pg (25-34); MEAN CORPUSCULAR HGB CONC 33 g/dL (32-36); MEAN CORPUSCULAR VOLUME 77 fL (80-99); MEAN PLATELET VOLUME 9.8 fL (9.0-12.2); PLATELET COUNT 130 10^3/uL (130-400)
[2021-02-17 05:44] LABS: BASOPHILS % (AUTO) 0 % (0-10); EOSINOPHILS % (AUTO) 0 % (0-10); LYMPHOCYTES # (AUTO) 1.7 X 10^3 (1.0-4.0); LYMPHOCYTES % (AUTO) 14 % (12-44); MONOCYTES # (AUTO) 1.2 X 10^3 (0.0-1.0); MONOCYTES % (AUTO) 10 % (0-12); NEUTROPHILS # (AUTO) 9.4 X 10^3 (1.8-7.8); NEUTROPHILS % (AUTO) 76 % (42-75)
[2021-02-17] MEDS ORDERED: NICOTINE 21 MG (NICODERM) PATCH TD STA (05:47)
[2021-02-17 06:02] LABS: BILIRUBIN,TOTAL 1.7 MG/DL (0.1-1.0); CALCIUM 8.8 MG/DL (8.5-10.1); CREATININE SERUM 1.26 MG/DL (0.60-1.30); MAGNESIUM 1.3 MG/DL (1.6-2.4); POTASSIUM 2.8 MMOL/L (3.6-5.0)
[2021-02-17 06:03] LABS: TOTAL PROTEIN 7.9 GM/DL (6.4-8.2)
[2021-02-17] MEDS ORDERED: MAGNESIUM 1 GM/100 ML IVPB 100 ML IV STA (06:19)
[2021-02-17] MEDS ORDERED: ONDANSETRON 4 MG (ZOFRAN) ORAL DISSOLVE TAB SL PRN (08:30)
[2021-02-17] MEDS ORDERED: 1/2 NS IV SOLUTION 1,000 ML IV PRN (08:30)
[2021-02-17] MEDS ORDERED: LORazepam INJ 2 MG/ML (ATIVAN) VIAL IM/IV PRN (08:30)
[2021-02-17] MEDS ORDERED: ANTACID SUSP 30 ML UDC (MYLANTA) PO PRN (08:30)
[2021-02-17] MEDS ORDERED: ONDANSETRON 4 MG/2 ML (SDV) Z0FRAN IV PRN (08:30)
[2021-02-17] MEDS ORDERED: D5 1/2 NS 1000 ML IV SOLUTION 1,000 ML IV PRN (08:30)
[2021-02-17] MEDS: LORazepam INJ 2 MG/ML (ATIVAN) VIAL IV PRN ×6 (09:19→21:36)
[2021-02-17] MEDS: ENOXAPARIN 40 MG/0.4 ML (LOVENOX) SYR SC SCH (09:19)
[2021-02-17] MEDS: MAGNESIUM OXIDE (MAG-OX)400 MG TAB PO SCH ×2 (09:20→20:15)
[2021-02-17] MEDS: NS IV 1000 ML 1,000 ML IV SCH ×3 (10:56→21:35)
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
[2021-02-17] MEDS ORDERED: RT-ALBUTEROL SULF 2.5 MG/3 ML PRE-MIX VIAL INH PRN (15:45)
[2021-02-17 16:44] LABS: INR 1.2 (0.8-1.4); PROTHROMBIN TIME PATIENT 15.6 SEC (12.2-14.7)
[2021-02-18] MEDS: LORazepam INJ 2 MG/ML (ATIVAN) VIAL IV PRN ×2 (02:14→10:21)
[2021-02-18 04:30] VITALS: BP 125/95
[2021-02-18 05:01] LABS: BASOPHILS % (AUTO) 0 % (0-10); EOSINOPHILS % (AUTO) 0 % (0-10)
[2021-02-18 05:02] LABS: HEMATOCRIT 35 % (40-54); HEMOGLOBIN 11.2 g/dL (13.3-17.7); LYMPHOCYTES # (AUTO) 1.3 10^3/uL (1.0-4.0); LYMPHOCYTES % (AUTO) 20 % (12-44); MEAN CORPUSCULAR HEMOGLOBIN 25 pg (25-34); MEAN CORPUSCULAR HGB CONC 32 g/dL (32-36); MEAN CORPUSCULAR VOLUME 79 fL (80-99); MEAN PLATELET VOLUME 10.4 fL (9.0-12.2); MONOCYTES # (AUTO) 0.7 10^3/uL (0.0-1.0); MONOCYTES % (AUTO) 11 % (0-12); NEUTROPHILS # (AUTO) 4.3 10^3/uL (1.8-7.8); NEUTROPHILS % (AUTO) 68 % (42-75); PLATELET COUNT 86 10^3/uL (130-400); WHITE BLOOD COUNT 6.4 10^3/uL (4.3-11.0)
[2021-02-18 05:20] LABS: ALBUMIN 3.6 GM/DL (3.2-4.5); POTASSIUM 2.8 MMOL/L (3.6-5.0)
[2021-02-18 05:22] LABS: TOTAL PROTEIN 7.4 GM/DL (6.4-8.2)
[2021-02-18 05:24] LABS: BILIRUBIN,TOTAL 1.6 MG/DL (0.1-1.0)
[2021-02-18 05:26] LABS: CREATININE SERUM 0.8 MG/DL (0.60-1.30)
[2021-02-18] MEDS: MAGNESIUM OXIDE (MAG-OX)400 MG TAB PO SCH (07:46)
[2021-02-18] MEDS: NS IV 1000 ML 1,000 ML IV SCH ×2 (07:46→10:38)
[2021-02-18] MEDS: ENOXAPARIN 40 MG/0.4 ML (LOVENOX) SYR SC SCH (07:46)
[2021-02-18 08:22] VITALS: BP 132/92
[2021-02-18] MEDS ORDERED: PATCH REMOVAL TP SCH (10:15)
[2021-02-18] MEDS ORDERED: NICOTINE 21 MG (NICODERM) PATCH ONE (10:17)
--- NOTE | 2021-02-18 11:36 | Progress Note ---
IHSAN ANDRADE MED STUDENT 02/18/21 1135: Progress Note Mr Velasquez is a 40 yo male that presented to [place] ER on 02/16 due to weakness, muscle pain, cramping, dizziness and reflux. He has a history of alcohol abuse w/ withdraw and seizure, cirrhosis, and hepatitis. He had not had alcohol for 2 days and was starting to feel these symptoms. He was found ot have very low sodium, magnesium, and potassium. Also had a very elevated lactic acid as well as KARI. He initially was not going to be admitted to [facility] and may have needed a higher care facility but he showed improvement on his labs and was able to be admitted to Step Down at [facility]. He improved over the course of his stay and did not have any more tremors or episodes of cramping. He received Ativan and fluids and recovered. On 02/18 he was discharged. He was not experiencing any of his previous symptoms, his KARI was resolved. NA and K on day of discharge were 132 and 2.8 respectively. Creatine was 0.80. He was inpatient for a total of 2 days. Supervisory-Addendum Brief Verification & Attestation Participated in pt care: history, physical Personally performed: exam Care discussed with: Medical Student Procedures: n/a n/a KARINA REES DO 02/19/21 0516: Supervisory-Addendum Brief Verification & Attestation Participated in pt care: history, MDM, physical Personally performed: exam, history, MDM, supervision of care Care discussed with: Medical Student Procedures: n/a Results interpretation: Verified all documentation Verification and Attestation of Medical Student E/M Service A medical student performed and documented this service in my presence. I reviewed and verified all information documented by the medical student and made modifications to such information, when appropriate. I personally performed the physical exam and medical decision making. Karina Rees, Feb 19, 2021,05:16 IHSAN ANDRADE MED STUDENT Feb 18, 2021 11:35 KARINA REES DO Feb 19, 2021 05:16
[2021-02-18 11:50] VITALS: BP 123/89
[2021-02-18] MEDS ORDERED: MULT-1112 PO (12:23)
[2021-02-18] MEDS ORDERED: LORA-405 PO (12:23)
--- NOTE | 2021-02-18 12:24 | Discharge Summary ---
Discharge Summary Hospital Course Was the Problem List Reviewed?: Yes Problems/Dx: (1) Alcohol withdrawal Status: Acute Qualifiers: Qualified Codes: F10.232 - Alcohol dependence with withdrawal with perceptual disturbance (2) Cirrhosis Status: Chronic (3) Hypokalemia Status: Acute (4) Hyponatremia Status: Acute (5) Dehydration Status: Acute (6) Acute kidney injury Status: Resolved (7) Nausea & vomiting Status: Acute (8) Alcoholism /alcohol abuse Status: Acute Hospital Course Date of Admission: Feb 17, 2021 at 08:26 Admission Diagnosis : Family Physician/Provider: No,Local Physician Date of Discharge: 02/18/21 Discharge Diagnosis: Alcohol withdrawal, hyponatremia, hypokalemia, elevated lactic acid without sepsis, cirrhosis, alcoholism Hospital Course: Hospital Course: Pt had a short hospital course. He was admitted after alcohol withdrawal and electrolyte imbalance from [facility], was found to be in acute kidney failure. He received aggressive IV fluids for lactic acid of 7.2, everything resolved but then he started refusing all medications including potassium since it was 2.8 this morning and he was ready for DC. I sent in a small amount of Ativan for alcohol withdrawal. Overall prognosis is poor cons idering the severe alcoholism. Labs and Pending Lab Test: Laboratory Tests 02/17/21 15:46: Prothrombin Time 15.6H, INR Comment 1.2 02/18/21 04:44: White Blood Count 6.4, Red Blood Count 4.42, Hemoglobin 11.2L, Hematocrit 35L, Mean Corpuscular Volume 79L, Mean Corpuscular Hemoglobin 25, Mean Corpuscular Hemoglobin Concent 32, Red Cell Distribution Width 16.6H, Platelet Count 86L, Mean Platelet Volume 10.4, Immature Granulocyte % (Auto) 1, Neutrophils (%) (Aut o) 68, Lymphocytes (%) (Auto) 20, Monocytes (%) (Auto) 11, Eosinophils (%) (Auto) 0, Basophils (%) (Auto) 0, Neutrophils # (Auto) 4.3, Lymphocytes # (Auto) 1.3, Monocytes # (Auto) 0.7, Eosinophils # (Auto) 0.0, Basophils # (Auto) 0.0, Immature Granulocyte # (Auto) 0.0, Percent Immature Platelet Fraction 7.6, Sodium Level 132L, Potassium Level 2.8L, Chloride Level 90L, Carbon Dioxide Level 30, Anion Gap 12, Blood Urea Nitrogen 16, Creatinine 0.80, Estimat Glomerular Filtration Rate 108, BUN/Creatinine Ratio 20, Glucose Level 94, Calcium Level 9.0, Corrected Calcium 9.3, Total Bilirubin 1.6H, Aspartate Amino Transf (AST/SGOT) 85H, Alanine Aminotransferase (ALT/SGPT) 49, Alkaline Phosphatase 66, Total Protein 7.4, Albumin 3.6 Microbiology 02/16/21 Blood Culture - Preliminary, Resulted No growth Home Meds Active Centrum Chewables Adults Tab (Multivit-Min/Iron/Folic/Vit K1) 1 Each Tab.chew 1 Each PO DAILY Assessment/Pt Instructions PCP in 1 week Discharge Planning: <30 minutes discharge planning Discharge Instructions Discharge Diet: No Restrictions Activity as Tolerated: Yes Discharge Physical Examination Vital Signs Vital Signs Date Time Temp Pulse Resp B/P (MAP) Pulse Ox O2 Delivery O2 Flow Rate FiO2 02/18/21 11:50 37.1 98 20 123/89 (100) 97 Room Air General Appearance: No Apparent Distress, WD/WN, Chronically ill Allergies: Coded Allergies: No Known Drug Allergies (Unverified , 08/31/18) Discharge Summary Date of Admission Feb 17, 2021 at 08:26 Date of Discharge Discharge Date: Feb 18, 2021 Admission Diagnosis Assessment: Alcohol withdrawal Hyponatremia Hypokalemia Acute kidney injury Hepatitis Elevated lactic acid without source of sepsis Plan: Close monitoring Monitor electrolytes MIQUEL REES DO Feb 18, 2021 12:24
[2021-02-19] MEDS ORDERED: NICOTINE PATCH REMOVAL TP SCH (08:59)
[2021-02-19] MEDS ORDERED: NICOTINE 21 MG (NICODERM) PATCH TD SCH ×2 (09:00)
== END 2021-02-18 14:42 | disposition home or self-care (01) | DRG 897 ==
LOC: EDUNIT# 15:48 → ER FS 15:50 → CSD 02-17 08:26
PROVIDERS: ADMIT Internal Medicine; ATTEND Internal Medicine
DX: F10.239 Alcohol dependence with withdrawal, unspecified (principal); N17.9 Acute kidney failure, unspecified; E87.1 Hypo-osmolality and hyponatremia; E87.2 Acidosis; F12.90 Cannabis use, unspecified, uncomplicated; K70.30 Alcoholic cirrhosis of liver without ascites; B19.20 Unspecified viral hepatitis C without hepatic coma; E86.0 Dehydration; E87.6 Hypokalemia; E83.42 Hypomagnesemia; F17.210 Nicotine dependence, cigarettes, uncomplicated; Z90.01 Acquired absence of eye; Y90.0 Blood alcohol level of less than 20 mg/100 ml
CPT/HCPCS: 36415; 71045; 80053; 80306; 80320; 80329; 81000; 83605; 83735; 85007; 85025; 85027; 85610; 85730; 87040; 93005; 93041; 94760